=== PATIENT | female | born 1955 | race American Indian/Alaskan Native ===

== ENCOUNTER 2016-04-25 16:01 | Outpatient (CLI) | END 2016-04-25 16:02 | disposition home or self-care (01) ==

== ENCOUNTER 2017-04-25 20:04 | Emergency (ER) | payer OTHER ==
--- NOTE | 2017-04-25 20:49 | XRAY Report ---
EXAM: CHEST RADIOGRAPHY EXAM DATE: 04/25/2017 08:42 PM. CLINICAL HISTORY: Cough, chills. COMPARISON: 02/13/2015. TECHNIQUE: 2 views. FINDINGS: Lungs/Pleura: Mildly hyperexpanded. No localized infiltrate, consolidation, effusion, or pneumothorax . Mediastinum: Heart and mediastinal contours are unremarkable. Other: None. IMPRESSION: No acute disease. [facility] Referring Provider Line: [phone] SITE ID: [id number]
[2017-04-25] MEDS ORDERED: SODIUM CHLORIDE 0.9% 1,000 ML IV ONE (21:13)
[2017-04-25] MEDS ORDERED: BENZONATATE 100 MG CAPSULE PO STA (21:14)
[2017-04-25] MEDS ORDERED: ALBUTEROL NEB 2.5 MG/3 ML INH STA (21:14)
[2017-04-25 21:43] LABS: BASOPHILS # (AUTO) 0.1 10^3/uL (0.0-0.1); BASOPHILS % (AUTO) 1.2 %; EOSINOPHILS % (AUTO) 0.2 %; HGB - HEMOGLOBIN 14.7 g/dL (12.0-16.0); LYMPHOCYTES % (AUTO) 19.6 %; MEAN CORPUSCULAR HEMOGLOBIN 29.1 pg (27.0-31.0); MEAN CORPUSCULAR HGB CONC 33.4 g/dL (32.0-36.0); MEAN PLATELET VOLUME 8.5 fL (7.9-10.8); MONOCYTES # (AUTO) 0.5 10^3/uL (0.0-1.0); NEUTROPHILS # (AUTO) 3.5 10^3/uL (1.5-6.6); PLT - PLATELET COUNT 209 10^3/uL (130-450); RED BLOOD COUNT 5.05 10^6/uL (4.20-5.40); RED CELL DISTRIBUTION WIDTH 13.3 % (12.0-15.0)
[2017-04-25 21:51] LABS: ALBUMIN 4.5 g/dL (3.2-5.5); ALBUMIN/GLOBULIN RATIO 1.4 (1.0-2.2); BILIRUBIN,TOTAL 0.5 mg/dL (0.2-1.0); CALCIUM 9.1 mg/dL (8.5-10.3); CREATININE 0.7 mg/dL (0.4-1.0); TOTAL PROTEIN 7.8 g/dL (6.7-8.2)
[2017-04-25] MEDS ORDERED: predniSONE 20 MG TABLET PO STA (22:35)
--- NOTE | 2017-04-25 22:40 | ED Physician Documentation ---
PD HPI URI - Stated complaint Stated Complaint: SOA/COUGH - Chief complaint Chief Complaint: Resp - History obtained from History obtained from: Patient, Family - History of Present Illness Timing - onset: How many days ago (3) Timing details: Gradual onset, Still present Associated symptoms: Fever, Chills, Sweats, Nasal congestion, Rhinorrhea, Dry cough Similar symptoms before: No diagnosis, Has not had sx before Recently seen: Not recently seen - Additional information Additional information: Patient is a 61 year old female who is presenting to the emergency department for fevers, chills, cough and congestion. patient states that her symptoms have been going on for the last few days. patient states that she will continually cough but nothing will come up. Review of Systems Constitutional: reports: Fever, Chills, Myalgias Eyes: reports: Photophobia. denies: Decreased vision Ears: denies: Ear pain, Drainage/discharge Nose: reports: Rhinorrhea / runny nose, Congestion, Sinus pressure / pain Throat: denies: Dental pain / toothache, Sore throat Cardiac: denies: Chest pain / pressure Respiratory: reports: Cough. denies: Wheezing GI: reports: Nausea. 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 : None HEENT: None Musculoskeletal: None Derm: None - Past Surgical History Past Surgical History: Yes General: Cholecystectomy, Appendectomy /CAN FILLING 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 CLOSING MACHINE TENDER: Hysterectomy - Present Medications Home Medications: Ambulatory Orders Medication Instructions Recorded Confirmed Losartan [Cozaar] 50 mg ORAL DAILY 06/14/14 01/19/16 Omeprazole 20 mg ORAL DAILY 06/14/14 01/19/16 PARoxetine [Paxil] 10 mg ORAL DAILY 06/14/14 01/19/16 carBAMazepine [Tegretol Xr] 100 mg PO BID 12/11/14 01/19/16 Albuterol Sulfate [Proair Hfa 2 puffs IH QID #1 hfa.aer.ad 01/19/16 Inhaler] Azithromycin [Zithromax] 250 mg PO DAILY #6 tablet 01/19/16 Benzonatate [Tessalon] 100 mg PO TID PRN #20 capsule 01/19/16 Dexamethasone [Decadron] 4 mg PO DAILY #5 tablet 01/19/16 guaiFENesin/CODEINE [Robitussin AC] 10 ml PO Q6H PRN #240 ml 01/19/16 Benzonatate [Tessalon Perle] 100 mg PO TID #15 capsule 04/25/17 predniSONE [Prednisone] 40 mg PO DAILY 5 Days tablet 04/25/17 - Allergies Allergies/Adverse Reactions: Allergies Allergy/AdvReac Type Severity Reaction Status Date / Time No Known Drug Allergies Allergy Verified 04/25/17 20:29 - Social History Does the pt smoke?: Yes Smoking Status: Current every day smoker Does the pt drink ETOH?: No Does the pt have substance abuse?: No - Immunizations Immunizations are current?: Yes - POLST Patient has POLST: No PD ED PE NORMAL - Vitals Vital signs reviewed: Yes - General General: Alert and oriented X 3, Well developed/nourished - HEENT HEENT: Atraumatic, PERRL - Neck Neck: Supple, no meningeal sign - Cardiac Cardiac: RRR, No murmur - Abdomen Abdomen: Soft, Non tender, Non distended - Extremities Extremities: No deformity, Normal ROM s pain, No calf tenderness / cord - Neuro Neuro: Alert and oriented X 3, No motor deficit, Normal speech - Psych Psych: Normal mood PD ED PE EXPANDED - General General: Alert - HEENT HEENT: Nasal congestion, Rhinorrhea - Respiratory Respiratory: Wheezing, Right lower lobe, Left lower lobe, Other (cough appreciated). No: Labored, Stridor - Derm Derm: Diaphoretic Results - Vitals Vitals: Vital Signs - 24 hr 04/25/17 04/25/17 04/25/17 20:26 22:00 22:27 Temperature 36.5 C Heart Rate 100 81 98 Respiratory 22 16 20 Rate Blood Pressure 132/92 H 139/82 H O2 Saturation 97 100 Oxygen O2 Source Room air - Labs Labs: Laboratory Tests 04/25/17 04/25/17 04/25/17 20:32 21:25 21:25 WBC 5.0 RBC 5.05 Hgb 14.7 Hct 43.9 MCV 87.0 MCH 29.1 MCHC 33.4 RDW 13.3 Plt Count 209 MPV 8.5 Neut # 3.5 Lymph # 1.0 L Kidder # 0.5 Eos # 0.0 Baso # 0.1 Absolute Nucleated RBC 0.00 Nucleated RBC % 0.0 Sodium 135 Potassium 3.4 L Chloride 102 Carbon Dioxide 21 Anion Gap 12.0 BUN 9 Creatinine 0.7 Estimated GFR (MDRD) 85 L Glucose 91 Calcium 9.1 Total Bilirubin 0.5 AST 17 ALT 18 Alkaline Phosphatase 67 Total Protein 7.8 Albumin 4.5 Globulin 3.3 Albumin/Globulin Ratio 1.4 Lipase 13 L Influenza A (Rapid) Negative Influenza B (Rapid) Negative Influenza Types A,B Ag - - Rads (name of study) chest x-ray Radiology: Final report received (no acute abnormality) PD MEDICAL DECISION MAKING - ED course Complexity details: reviewed old records, reviewed results, re-evaluated patient , considered differential, d/w patient, d/w family ED course: patient was seen and examined at bedside. chest x-ray and flu swab were performed and were within normal limits. Patient was clammy, IV access was gained and labs were drawn. patient was treated with fluid bolus, albuterol and tessalon perle. patient's diagnostics were within normal limits. Patient required no further inpatient testing and was stable for discharge with oupatient follow up. Departure - Departure Disposition: 01 Home, Self Care Clinical Impression: Upper respiratory infection Condition: Good Instructions: ED Viral Syndrome, ED Bronchitis Asthmatic Follow-Up: Melinda Souza MD [Primary Care Provider] - Within 3 Days Prescriptions: Benzonatate [Tessalon Perle] 100 mg PO TID #15 capsule predniSONE [Prednisone] 40 mg PO DAILY 5 Days tablet Comments: Your diagnostics today were within normal limits. there was no sign of acute pneumonia. Your symptoms are likely viral in nature and should get better over the next couple of days. It is important to stay well hydrated and get plenty of rest. You should try to drink at least 100oz of fluids a day. You can take over the counter cold and flu medications. You should follow up with your doctor friday if your symptoms persist. You may return to the emergency department at any time for new, worsening or uncontrollable symptoms.
[2017-04-25 23:08] VITALS: BP 147/88
== END 2017-04-25 23:08 | disposition home or self-care (01) ==
LOC: ED 20:04
DX: J06.9 Acute upper respiratory infection, unspecified (principal); Z86.718 Personal history of other venous thrombosis and embolism; Z86.711 Personal history of pulmonary embolism; Z86.73 Personal history of transient ischemic attack (TIA), and cerebral infarction without residual deficits; K21.9 Gastro-esophageal reflux disease without esophagitis; F17.200 Nicotine dependence, unspecified, uncomplicated
CPT/HCPCS: 36415; 71046; 80053; 83690; 85025; 87275; 87276; 93005; 94640; 96360; 99283; A9270; J7512; J7613

== ENCOUNTER 2017-09-28 13:41 | Outpatient (CLI) | payer OTHER | END 2017-09-28 13:42 | disposition critical access hospital (66) | LOC: EMS 13:41 | PROVIDERS: ATTEND Surgery | DX: S09.93XA Unspecified injury of face, initial encounter (principal); M54.2 Cervicalgia; M25.552 Pain in left hip; M25.572 Pain in left ankle and joints of left foot; W18.39XA Other fall on same level, initial encounter; Y93.01 Activity, walking, marching and hiking; Y92.830 Public park as the place of occurrence of the external cause | CPT/HCPCS: A0425; A0429 ==

== ENCOUNTER 2017-09-28 14:18 | Emergency (ER) | payer OTHER ==
[2017-09-28] MEDS ORDERED: MORPHINE 10 MG/ML VIAL IM STA ×2 (14:30→16:18)
--- NOTE | 2017-09-28 14:33 | ED Physician Documentation ---
History of Present Illness - Stated complaint Stated Complaint: GLF - History obtained from History obtained from: Patient, EMS - History of Present Illness Timing: Today Pain level max: 9 Pain level now: 9 Improved by: rest Worsened by: movement - Additonal information Additional information: Patient is a 61-year-old female who presents to the emergency department [place] the park [place]. States her forehead struck the ground twice and is complaining of head pain, jaw pain, neck pain, bilateral hand pain left hip pain and left ankle pain. She states she takes cannabis oil at home for seizures daily. Does not take anything for pain. States she had surgery on her bilateral hands last year. Unsure if she lost consciousness or not. No vomiting. 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 HEENT: None Musculoskeletal: None Derm: None - Past Surgical History Past Surgical History: Yes General: Cholecystectomy, Appendectomy /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: Hysterectomy - Present Medications Home Medications: Ambulatory Orders Medication Instructions Recorded Confirmed Losartan [Cozaar] 50 mg ORAL DAILY 06/14/14 01/19/16 Omeprazole 20 mg ORAL DAILY 06/14/14 01/19/16 PARoxetine [Paxil] 10 mg ORAL DAILY 06/14/14 01/19/16 carBAMazepine [Tegretol Xr] 100 mg PO BID 12/11/14 01/19/16 Albuterol Sulfate [Proair Hfa 2 puffs IH QID #1 hfa.aer.ad 01/19/16 Inhaler] Azithromycin [Zithromax] 250 mg PO DAILY #6 tablet 01/19/16 Benzonatate [Tessalon] 100 mg PO TID PRN #20 capsule 01/19/16 Dexamethasone [Decadron] 4 mg PO DAILY #5 tablet 01/19/16 guaiFENesin/CODEINE [Robitussin AC] 10 ml PO Q6H PRN #240 ml 01/19/16 Benzonatate [Tessalon Perle] 100 mg PO TID #15 capsule 04/25/17 predniSONE [Prednisone] 40 mg PO DAILY 5 Days tablet 04/25/17 Oxycodone HCl/Acetaminophen 1 - 2 each PO Q6H PRN #14 tablet 09/28/17 [Percocet 5-325 mg Tablet] - Allergies Allergies/Adverse Reactions: Allergies Allergy/AdvReac Type Severity Reaction Status Date / Time No Known Drug Allergies Allergy Verified 04/25/17 20:29 - Social History Does the pt smoke?: Yes Smoking Status: Current every day smoker Does the pt drink ETOH?: No Does the pt have substance abuse?: No - Immunizations Immunizations are current?: Yes - POLST Patient has POLST: No PD ED PE NORMAL - Vitals Vital signs reviewed: Yes - General General: Alert and oriented X 3, Well developed/nourished - HEENT HEENT: PERRL, EOMI, Moist mucous membranes, Other (abrasion to the forehead. no hematoma. ) - Neck Neck: Supple, no meningeal sign, Other (mid c-spine TTP, maintained in c- collar. ) - Cardiac Cardiac: RRR - Respiratory Respiratory: No respiratory distress, Clear bilaterally - Abdomen Abdomen: Soft, Non tender, Non distended - Back Back: No spinal TTP - Derm Derm: Warm and dry - Extremities Extremities: Other (TTP over the L hip and L ankle diffusely. Limited ROM 2/2 pain. NVI. also diffuse tenderness over the B hands, but not the distal ulna, radius or snuffbox. NVI. 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, No motor deficit, No sensory deficit - Psych Psych: Normal mood, Normal affect Results - Vitals Vitals: Vital Signs - 24 hr 09/28/17 09/28/17 14:24 15:39 Temperature 37.0 C Heart Rate 77 66 Respiratory 18 14 Rate Blood Pressure 143/75 H 123/79 O2 Saturation 100 94 Oxygen O2 Source Room air - EKG (time done) 1634 Rate: Rate (enter#) (75) Rhythm: NSR Kerby: Normal Intervals: Normal OH QRS: Normal Ischemia: Normal ST segments - Rads (name of study) head CT Radiology: Prelim report reviewed, EMP read contemporaneously, See rad report ( no acute abnormality) facial bones ct Radiology: Prelim report reviewed, EMP read contemporaneously, See rad report ( no fractures) c-spine CT Radiology: Prelim report reviewed, EMP read contemporaneously, See rad report ( no acute abnormalities.) L hip xray Radiology: Prelim report reviewed, EMP read contemporaneously, See rad report ( no acute bony abnormalities) L ankle xray Radiology: Prelim report reviewed, EMP read contemporaneously, See rad report ( no acute abnormalities.) B hand xray Radiology: Prelim report reviewed, EMP read contemporaneously, See rad report ( Post bilateral trapeziectomy. Bilateral disarticulation of the thumbs at the carpometacarpal joints.) post reduction thumbs Radiology: Prelim report reviewed, EMP read contemporaneously, See rad report ( Post bilateral trapeziectomy. Improved alignment of the right first CMC joint, now within normal postsurgical limits. Persistent mild proximal migration of the left first metacarpal at the CMC joint.) PD MEDICAL DECISION MAKING - ED course Complexity details: reviewed results, re-evaluated patient, considered differential, d/w patient, d/w [facility] consultant ED course: Patient is a 61-year-old female who presents to the emergency department after a ground-level fall today. She sustained multiple injuries including a closed head injury and dislocation of the bilateral thumbs at the carpometacarpal joints. These are prior surgical repair joints. These were reduced in the emergency department under local anesthesia. Tolerated well. They did seem to slowly migrate back into their original position, therefore after the second x- ray they were replaced into a more normal anatomical position and thumb spica splints were applied. I discussed the case with Dr. Adams, orthopedics here as well as orthopedics at [place] in [place] who recommended that she follow- up closely with her hand surgeon for repeat evaluation. They state that if there is a mild dislocation still present as long as she is neurovascularly intact that should not be an issue as long as she has close follow-up. Patient states good understanding of this. She is comfortable with this plan and she is neurovascularly intact. Will prescribe pain medication for home. She also had some nausea and vomiting upon leaving the emergency department, therefore Zofran was given to her. She did not want to check back in for repeat evaluation at that point. She is still well-appearing, nontoxic. No neurological deficits. Abdomen was soft, nontender nondistended on serial exam. Patient counseled regarding signs and symptoms for which I believe and urgent re-evaluation would be necessary. Patient with good understanding of and agreement to plan and is comfortable going home at this time This document was made in part using voice recognition software. While efforts are made to proofread this document, sound alike and grammatical errors may occur. - Sepsis Event Vital Signs: Vital Signs - 24 hr 09/28/17 09/28/17 14:24 15:39 Temperature 37.0 C Heart Rate 77 66 Respiratory 18 14 Rate Blood Pressure 143/75 H 123/79 O2 Saturation 100 94 Oxygen O2 Source Room air Departure - Departure Disposition: 01 Home, Self Care Clinical Impression: Closed head injury Qualifiers: Encounter type: initial encounter Qualified Code(s): S09.90XA - Unspecified injury of head, initial encounter Thumb dislocation Qualifiers: Encounter type: initial encounter Laterality: unspecified laterality Qualified Code(s): S63.106A - Unspecified dislocation of unspecified thumb, initial encounter Contusion of jaw Qualifiers: Encounter type: initial encounter Qualified Code(s): S00.83XA - Contusion of other part of head, initial encounter Contusion, hip Qualifiers: Encounter type: initial encounter Laterality: unspecified laterality Qualified Code(s): S70.00XA - Contusion of unspecified hip, initial encounter Condition: Good Instructions: ED Head Injury Closed Follow-Up: your,doctor in 1 week [Other] Prescriptions: Oxycodone HCl/Acetaminophen [Percocet 5-325 mg Tablet] 1 - 2 each PO Q6H PRN # 14 tablet PRN Reason: pain Comments: You need to see a hand surgeon this week about your thumbs. You may have ripped the ligaments, causing them to redislocate. Keep the splints on. I spoke with orthopedics here and at [place] about you. They both agree you need to be seen at the hand clinic in [place] early this week. Discharge Date/Time: 09/28/17 18:04
[2017-09-28 15:40] VITALS: BP 123/79
--- NOTE | 2017-09-28 16:02 | CT Report ---
EXAM: CT HEAD EXAM DATE: 09/28/2017 03:37 PM. CLINICAL HISTORY: Fall, head pain. COMPARISON: 12/10/2014. TECHNIQUE: Multiaxial CT images were obtained from the foramen magnum to the vertex. Reformats: Coron al. IV contrast: None. In accordance with CT protocol optimization, one or more of the following dose reduction techniques w ere utilized for this exam: automated exposure control, adjustment of mA and/or KV based on patient s ize, or use of iterative reconstructive technique. FINDINGS: Parenchyma: No intraparenchymal hemorrhage. No evidence of mass, midline shift, or CT findings of inf arction. Perry-white differentiation is distinct. Extraaxial Spaces: No subdural or epidural collections identified. Ventricles: Normal in size and position. Sinuses and Orbits: Imaged paranasal sinuses, orbits, and mastoids show no significant abnormality. Bones: No evidence of fracture or calvarial defect. Other: None. IMPRESSION: Negative for an acute or focal intracranial abnormality. [facility] Referring Provider Line: [phone] SITE ID: [id number]
--- NOTE | 2017-09-28 16:08 | CT Preliminary Report ---
Exam: CT FACIAL BONES W/O IMPRESSION: 1. No facial fracture. Sinuses are clear. 2. Soft tissue swelling anterior to the mandible. [facility] SITE ID: [id number]
--- NOTE | 2017-09-28 16:08 | CT Report ---
EXAM: CT MAXILLOFACIAL WITHOUT CONTRAST EXAM DATE: 09/28/2017 03:37 PM. CLINICAL HISTORY: Fall, jaw pain. COMPARISONS: Sinus CT 02/02/2015. TECHNIQUE: Thin-section axial images were acquired of the face without contrast. Post-processing: Cor onal and sagittal reformats. Other: None. In accordance with CT protocol optimization, one or more of the following dose reduction techniques w ere utilized for this exam: automated exposure control, adjustment of mA and/or KV based on patient s ize, or use of iterative reconstructive technique. FINDINGS: Soft Tissue: There is soft tissue swelling of the left chin and lower left face. No radiopaque foreig n body. No discrete measurable hematoma. Orbits: Symmetric and unremarkable. Bones: No fracture or bone lesion. Temporomandibular Joints: The temporomandibular joints are symmetric and normally located. Sinuses: Normal. No mucosal thickening or fluid levels. Other: None. IMPRESSION: 1. No facial fracture. Sinuses are clear. 2. Soft tissue swelling anterior to the mandible. [facility] Referring Provider Line: [phone] SITE ID: [id number]
--- NOTE | 2017-09-28 16:11 | CT Report ---
EXAM: CT CERVICAL SPINE WITHOUT CONTRAST DATE: 09/28/2017 03:37 PM. HISTORY: Fall, neck pain. COMPARISONS: None. TECHNIQUE: Thin-section axial images were acquired of the cervical spine without contrast. Post-proce ssing: Coronal and sagittal reformats. Other: None. In accordance with CT protocol optimization, one or more of the following dose reduction techniques w ere utilized for this exam: automated exposure control, adjustment of mA and/or KV based on patient s ize, or use of iterative reconstructive technique. FINDINGS: Alignment: There is straightening of normal cervical lordosis without subluxation. Bones: No fracture or bony destruction. Interspace Levels/Facets: There is moderate disk height loss with disk osteophyte spurring at C5-C6. There is mild disk height loss at C6-C7 and C7-T1. Musculature: Normal. No fatty atrophy. Other: Trachea is midline. No apical pneumothorax. IMPRESSION: 1. Negative for acute fracture and subluxation of cervical spine. 2. Degenerative disk disease greatest at C5-C6. [facility] Referring Provider Line: [phone] SITE ID: [id number]
--- NOTE | 2017-09-28 16:11 | CT Preliminary Report ---
Exam: CT CERVICAL SPINE W/O IMPRESSION: 1. Negative for acute fracture and subluxation of cervical spine. 2. Degenerative disk disease greatest at C5-C6. [facility] SITE ID: [id number]
--- NOTE | 2017-09-28 16:12 | XRAY Preliminary Report ---
Exam: XR ANKLE 3 VIEW LT IMPRESSION: No fracture or subluxation of left ankle. [facility] SITE ID: [id number]
--- NOTE | 2017-09-28 16:12 | XRAY Report ---
EXAM: LEFT ANKLE RADIOGRAPHY EXAM DATE: 09/28/2017 04:00 PM. CLINICAL HISTORY: Fall, L ankle pain. COMPARISON: None. TECHNIQUE: 3 views. FINDINGS: Bones: Normal. No fractures or bone lesions. Joints: Normal. No effusion. No subluxations. The ankle mortise is normally aligned. Soft Tissues: There is spurring on the dorsal calcaneus. IMPRESSION: No fracture or subluxation of left ankle. [facility] Referring Provider Line: [phone] SITE ID: [id number]
--- NOTE | 2017-09-28 16:13 | XRAY Report ---
EXAM: LEFT HIP AND PELVIS RADIOGRAPHY EXAM DATE: 09/28/2017 04:02 PM. HISTORY: Fall, L hip pain. COMPARISONS: None. TECHNIQUE: 1 view of the pelvis and 1 view of the hip. FINDINGS: Bones: Normal. No fracture or bone lesion. Joints: The bilateral hip, pubis symphysis, and sacroiliac joints are preserved. Soft Tissues: Normal. No soft tissue swelling. IMPRESSION: No fracture or subluxation. [facility] Referring Provider Line: [phone] SITE ID: [id number]
--- NOTE | 2017-09-28 16:13 | XRAY Preliminary Report ---
Exam: XR HIP W/PELVIS 2-3V LT IMPRESSION: No fracture or subluxation. [facility] SITE ID: [id number]
[2017-09-28] MEDS ORDERED: KETOROLAC 60 MG/2 ML VIAL IM STA (16:18)
--- NOTE | 2017-09-28 16:28 | XRAY Report ---
EXAMS: 1. Right Hand Radiography 2. Left Hand Radiography EXAM DATE: 09/28/2017 04:01 PM. CLINICAL HISTORY: Fall, B hand pain. COMPARISON: None. TECHNIQUE: 2 views each hand. FINDINGS: Right: Bones: Trapezium is absent. There is irregularity of the proximal articular surface of the first meta carpal. No acute fracture. Joints: There is disarticulation at the base of the thumb. Soft Tissues: There is spurring of the fifth distal interphalangeal joint. Left: Bones: Trapezium is absent. Joints: There is disarticulation at the base of thumb. Soft Tissues: Normal. No soft tissue swelling. IMPRESSION: 1. Absent bilateral trapezium, presumably postoperative. Bilateral disarticulation at the base of the thumb. No acute fracture. [facility] Referring Provider Line: [phone] SITE ID: [id number]
--- NOTE | 2017-09-28 16:28 | XRAY Preliminary Report ---
Exam: XR HAND 2 VIEW BILAT IMPRESSION: 1. Absent bilateral trapezium, presumably postoperative. Bilateral disarticulation at the base of the thumb. No acute fracture. [facility] SITE ID: [id number]
[2017-09-28] MEDS ORDERED: LIDOCAINE 2% 10 ML MDV SUBQ STA (16:41)
--- NOTE | 2017-09-28 18:32 | XRAY Report ---
EXAM: BILATERAL FIRST DIGIT RADIOGRAPHY EXAM DATE: 09/28/2017 05:43 PM. CLINICAL HISTORY: Bilateral thumb dislocation, postreduction. COMPARISON: Bilateral hand radiographs, earlier same day. TECHNIQUE: 2 views each. FINDINGS: RIGHT THUMB: Bones: Post trapeziectomy. No fracture or bone lesion. Joints: Improved alignment at the first CMC joint. Articulation of the first metacarpal base with the second metacarpal base and trapezoid appears within normal limits. Mild joint space loss and osteoph ytosis at the first interphalangeal joint, compatible with osteoarthritis. Soft Tissues: Unremarkable. LEFT THUMB: Bones: Post trapeziectomy. No fracture or bone lesion. Joints: Persistent mild proximal migration of the first metacarpal at the CMC joint. Soft Tissues: Unremarkable. IMPRESSION: 1. Post bilateral trapeziectomy. 2. Improved alignment at the right first CMC joint, now within normal postsurgical limits. 3. Persistent mild proximal migration of the left first metacarpal at the CMC joint. [facility] Referring Provider Line: [phone] SITE ID: [id number]
[2017-09-28] MEDS ORDERED: ONDANSETRON ODT 4 MG TABLET TL STA (19:06)
[2017-09-28] MEDS ORDERED: ONDANSETRON ODT 4 MG Prepack 2 TL STA (19:14)
[2017-09-28] MEDS ORDERED: ONDANSETRON 4 MG/2 ML VIAL ONE ×2 (19:17→19:20)
[2017-09-28] MEDS ORDERED: CHERRY SYRUP 10 ML UDC PO ONE (19:18)
== END 2017-09-28 18:04 | disposition home or self-care (01) ==
LOC: EDUNIT# → ED 14:18
DX: S63.045A Dislocation of carpometacarpal joint of left thumb, initial encounter (principal); S63.044A Dislocation of carpometacarpal joint of right thumb, initial encounter; S09.90XA Unspecified injury of head, initial encounter; S00.81XA Abrasion of other part of head, initial encounter; S00.83XA Contusion of other part of head, initial encounter; S70.00XA Contusion of unspecified hip, initial encounter; W18.30XA Fall on same level, unspecified, initial encounter; Y92.830 Public park as the place of occurrence of the external cause; Z86.718 Personal history of other venous thrombosis and embolism; Z86.711 Personal history of pulmonary embolism; F17.200 Nicotine dependence, unspecified, uncomplicated
CPT/HCPCS: 26641; 70450; 70486; 72125; 73120; 73140; 73502; 73610; 93005; 96372; 99283; A9270; Q0162

== ENCOUNTER 2017-11-14 14:33 | Outpatient (CLI) | payer OTHER ==
--- NOTE | 2017-11-15 16:55 | MRI Report ---
Procedure Date: 11/14/2017 Accession Number: [id number] / [id number] Procedure: MRI - Cervical Spine W/O CPT Code: FULL RESULT: EXAM: MRI CERVICAL SPINE WITHOUT CONTRAST EXAM DATE: 11/14/2017 04:10 PM. CLINICAL HISTORY: Neck pain, radiculitis. COMPARISONS: None. TECHNIQUE: Multiplanar, multisequence T1-weighted and fluid-sensitive sequences of the cervical spine without contrast. Other: None. FINDINGS: Alignment: There is reversal of the normal cervical lordosis. Neurologic Structures: The visualized posterior fossa structures are unremarkable. No signal abnormality in the visualized spinal cord. Bone Marrow: Type I endplate change is at C7/T1. Interspace Levels/Facets: All visualized intervertebral disk are desiccated. C1-C2: Unremarkable. C2-C3: Severe left facet osteoarthritis and mild right facet osteoarthritis result in moderate left foraminal narrowing. C3-C4: Moderate right facet osteoarthritis and mild left facet osteoarthritis result in moderate bilateral foraminal narrowing. C4-C5: A posterior disk/osteophyte complex and moderate right facet osteoarthritis results in mild spinal canal and severe right foraminal narrowing. C5-C6: The disk is desiccated with moderate height loss with anterior endplate spurring. A posterior disk/osteophyte complex causes moderate spinal canal, mild right foraminal, and severe left foraminal narrowing. There is flattening of the anterior cord. The cord is compressed into a triangular configuration. C6-C7: A posterior disk/osteophyte complex causes minimal spinal canal and moderate bilateral foraminal narrowing. C7-T1: Moderate disk height loss is present. A posterior disk/osteophyte complex and ligamentum flavum hypertrophy result in moderate spinal canal and severe bilateral foraminal narrowing. Musculature: Normal. No edema or fatty atrophy. Other: The paravertebral and prevertebral soft tissues are normal. IMPRESSION: 1. Reversal of the normal cervical lordosis. 2. Moderate left foraminal narrowing at C2-C3 due to osteoarthritis. 3. Moderate bilateral foraminal narrowing at C3-C4 due to facet osteoarthritis. 4. Mild spinal canal and severe right foraminal narrowing at C4-C5 due to disk and posterior element degenerative changes. 5. Moderate spinal canal, mild right foraminal, and mild left foraminal narrowing at C5-C6 due to a disk/osteophyte complex. 6. Moderate bilateral foraminal narrowing at C6-C7 due to a disk/osteophyte complex. 7. Moderate spinal canal and severe bilateral foraminal narrowing at C7/T1 due to disk and posterior element degenerative changes. RADIA
== END 2017-11-14 14:34 | disposition home or self-care (01) ==
LOC: DI 14:33
PROVIDERS: ATTEND Student in an Organized Health Care Education/Training Program
DX: M50.31 Other cervical disc degeneration, high cervical region (principal); M47.892 Other spondylosis, cervical region; M48.02 Spinal stenosis, cervical region
CPT/HCPCS: 72141

== ENCOUNTER 2017-12-28 11:19 | Emergency (ER) | payer OTHER ==
[2017-12-28 11:51] LABS: BILIRUBIN,URINE NEGATIVE (NEGATIVE); GLUCOSE, URINE (UA) NEGATIVE (NEGATIVE); KETONES,URINE (UA) NEGATIVE (NEGATIVE); LEUKOCYTE ESTERASE, URINE MODERATE (NEGATIVE); NITRITE,URINE NEGATIVE (NEGATIVE); OCCULT BLOOD,URINE SMALL (NEGATIVE); PH,URINE 6.5 PH (5.0-7.5); PROTEIN,URINE NEGATIVE (NEGATIVE); UROBILINOGEN,URINE 0.2 (NORMAL) E.U./dL (NORMAL)
[2017-12-28 11:53] LABS: CLARITY,URINE HAZY (CLEAR)
[2017-12-28 12:14] LABS: RBC,URINE 0-5 /HPF (0-5)
[2017-12-28 12:15] LABS: BACTERIA,URINE Rare /HPF (None Seen); SQUAMOUS EPITHELIAL CELL,UR FEW Squamous (<= Few); WBC CLUMPS,URINE PRESENT
--- NOTE | 2017-12-28 12:29 | ED Physician Documentation ---
PD HPI FEMALE - Stated complaint Stated Complaint: SIDE PX/VOMITING - Chief complaint Chief Complaint: UTI - History obtained from History obtained from: Patient - History of Present Illness Timing - onset: How many days ago (2) Timing - duration: Days (2) Timing - details: Abrupt onset, Still present Associated symptoms: Back pain (todauy), Dysuria, Urinary frequency. No: Fever , Vaginal discharge, Genital sore/lesion Similar symptoms before: Diagnosis (utis and had leftover dose Bactrim that she took yesterday, without improved symptoms today.) Recently seen: Not recently seen Review of Systems Constitutional: denies: Fever, Chills Nose: denies: Rhinorrhea / runny nose, Congestion Throat: denies: Sore throat Respiratory: denies: Cough GI: reports: Abdominal Pain (suprapubic area). denies: Nausea, Vomiting, Diarrhea : reports: Dysuria, Frequency. denies: Discharge Skin: denies: Rash PD PAST MEDICAL HISTORY - Past Medical History Past Medical History: Yes Cardiovascular: Deep vein thrombosis, Pulmonary embolism Respiratory: Other Endocrine/Autoimmune: None GI: GERD PREFITTER: None : None HEENT: None Musculoskeletal: None Derm: None - Past Surgical History Past Surgical History: Yes General: Cholecystectomy, Appendectomy /PREFITTER: Hysterectomy - Present Medications Home Medications: Ambulatory Orders Medication Instructions Recorded Confirmed Losartan [Cozaar] 50 mg ORAL DAILY 06/14/14 01/19/16 Omeprazole 20 mg ORAL DAILY 06/14/14 01/19/16 PARoxetine [Paxil] 10 mg ORAL DAILY 06/14/14 01/19/16 carBAMazepine [Tegretol Xr] 100 mg PO BID 12/11/14 01/19/16 Albuterol Sulfate [Proair Hfa 2 puffs IH QID #1 hfa.aer.ad 01/19/16 Inhaler] Azithromycin [Zithromax] 250 mg PO DAILY #6 tablet 01/19/16 Benzonatate [Tessalon] 100 mg PO TID PRN #20 capsule 01/19/16 Dexamethasone [Decadron] 4 mg PO DAILY #5 tablet 01/19/16 guaiFENesin/CODEINE [Robitussin AC] 10 ml PO Q6H PRN #240 ml 01/19/16 Benzonatate [Tessalon [place]] 100 mg PO TID #15 capsule 04/25/17 predniSONE [Prednisone] 40 mg PO DAILY 5 Days tablet 04/25/17 Oxycodone HCl/Acetaminophen 1 - 2 each PO Q6H PRN #14 tablet 09/28/17 [Percocet 5-325 mg Tablet] Cephalexin [Keflex] 500 mg PO QID #24 capsule 12/28/17 - Allergies Allergies/Adverse Reactions: Allergies Allergy/AdvReac Type Severity Reaction Status Date / Time No Known Drug Allergies Allergy Verified 04/25/17 20:29 - Social History Does the pt smoke?: Yes Smoking Status: Current every day smoker Does the pt drink ETOH?: Yes Does the pt have substance abuse?: No - Immunizations Immunizations are current?: Yes - POLST Patient has POLST: No PD ED PE NORMAL - Vitals Vital signs reviewed: Yes - General General: Alert and oriented X 3, No acute distress, Well developed/nourished - Neck Neck: Supple, no meningeal sign, No adenopathy - Cardiac Cardiac: RRR, No murmur - Respiratory Respiratory: Clear bilaterally - Abdomen Abdomen: Soft, Non tender - Back Back: No CVA TTP Results - Vitals Vitals: Vital Signs - 24 hr 12/28/17 12/28/17 11:33 13:01 Temperature 36.3 C L 36.1 C L Heart Rate 76 67 Respiratory 18 18 Rate Blood Pressure 135/93 H 122/83 H O2 Saturation 98 98 Oxygen O2 Source Room air - Labs Labs: Laboratory Tests 12/28/17 11:47 Urine Color YELLOW Urine Clarity HAZY Urine pH 6.5 Ur Specific [place] 1.010 Urine Protein NEGATIVE Urine Glucose (UA) NEGATIVE Urine Ketones NEGATIVE Urine Occult Blood SMALL H Urine Nitrite NEGATIVE Urine Bilirubin NEGATIVE Urine Urobilinogen 0.2 (NORMAL) Ur Leukocyte Esterase MODERATE H Urine RBC 0-5 Urine WBC 6-10 H Urine WBC Clumps PRESENT Ur Squamous Epith Cells FEW Squamous Urine Bacteria Rare Ur Microscopic Review INDICATED Urine Culture Comments INDICATED PD MEDICAL DECISION MAKING - ED course Complexity details: considered differential (has dysuria initially then some flank pain both sides. Does not sound like stone. UA positive enough especially in lieu of her having taken an abx dose last night. ), d/w patient - Sepsis Event Vital Signs: Vital Signs - 24 hr 12/28/17 12/28/17 11:33 13:01 Temperature 36.3 C L 36.1 C L Heart Rate 76 67 Respiratory 18 18 Rate Blood Pressure 135/93 H 122/83 H O2 Saturation 98 98 Oxygen O2 Source Room air Departure - Departure Disposition: Home, Self Care Clinical Impression: Dysuria UTI (urinary tract infection) Qualifiers: Urinary tract infection type: acute cystitis Hematuria presence: without hematuria Qualified Code(s): N30.00 - Acute cystitis without hematuria Condition: Stable Record reviewed to determine appropriate education?: Yes Instructions: ED UTI Cystitis Female Follow-Up: Melinda Souza MD [Primary Care Provider] - Prescriptions: Cephalexin [Keflex] 500 mg PO QID #24 capsule Comments: Continue the Azo as needed for discomfort. Add Tylenol if needed for pains. Drink lots of fluids as you have been doing. Add cephalexin antibiotic 4 times a day for the next 5 days. Follow-up on Friday as planned. Discharge Date/Time: 12/28/17 13:05
[2017-12-28] MEDS ORDERED: cephALEXin 250 MG CAPSULE PO STA (12:43)
[2017-12-28] MEDS ORDERED: PHENAZOPYRIDINE 100 MG TABLET PO STA (12:44)
[2017-12-28] MEDS ORDERED: ACETAMINOPHEN 325 MG TABLET PO STA (12:44)
[2017-12-28 13:02] VITALS: BP 122/83
== END 2017-12-28 13:05 | disposition home or self-care (01) ==
LOC: ED 11:19
DX: N30.00 Acute cystitis without hematuria (principal); Z86.718 Personal history of other venous thrombosis and embolism; F17.200 Nicotine dependence, unspecified, uncomplicated
CPT/HCPCS: 81001; 87086; 87181; 99283; A9270; 81003

== ENCOUNTER 2018-02-13 07:52 | Outpatient (CLI) | payer OTHER | END 2018-02-13 07:53 | disposition short-term general hospital (02) | LOC: EMS 07:52 | PROVIDERS: ATTEND Surgery | DX: M54.5 Low back pain (principal); R06.02 Shortness of breath | CPT/HCPCS: A0425; A0427 ==

== ENCOUNTER 2018-02-18 15:33 | Emergency (ER) | payer OTHER ==
--- NOTE | 2018-02-18 16:12 | XRAY Report ---
Reason: Chest Pain Procedure Date: 02/18/2018 Accession Number: [id number] / [id number] Procedure: XR - Chest 1 View X-Ray CPT Code: 85536 FULL RESULT: EXAM: CHEST RADIOGRAPHY. EXAM DATE: 02/18/2018 04:02 PM. CLINICAL HISTORY: Chest pain for 5 days. COMPARISON: chest 2 view 04/25/2017 8:31 PM. TECHNIQUE: 1 view. FINDINGS: Lungs/Pleura: Minimal plate-like atelectasis left base. No other focal opacities evident. No pleural effusion. No pneumothorax. Mediastinum: Within exam limitations, the cardiomediastinal contour is normal. Other: Cholecystectomy. IMPRESSION: Normal single view chest. RADIA
[2018-02-18] MEDS ORDERED: KETOROLAC 60 MG/2 ML VIAL IVP STA (16:25)
[2018-02-18 16:56] LABS: BASOPHILS % (AUTO) 0.6 %; EOSINOPHILS # (AUTO) 0.1 10^3/uL (0.0-0.7); EOSINOPHILS % (AUTO) 0.9 %; HGB - HEMOGLOBIN 14.8 g/dL (12.0-16.0); LYMPHOCYTES # (AUTO) 1.6 10^3/uL (1.5-3.5); LYMPHOCYTES % (AUTO) 20.7 %; MEAN CORPUSCULAR HEMOGLOBIN 29.6 pg (27.0-31.0); MEAN CORPUSCULAR HGB CONC 33.9 g/dL (32.0-36.0); MEAN CORPUSCULAR VOLUME 87.2 fL (81.0-99.0); MEAN PLATELET VOLUME 8.4 fL (7.9-10.8); MONOCYTES # (AUTO) 0.5 10^3/uL (0.0-1.0); MONOCYTES % (AUTO) 7.1 %; NEUTROPHILS # (AUTO) 5.5 10^3/uL (1.5-6.6); NEUTROPHILS % (AUTO) 70.7 %; PLT - PLATELET COUNT 319 10^3/uL (130-450); RED BLOOD COUNT 5.01 10^6/uL (4.20-5.40); RED CELL DISTRIBUTION WIDTH 12.8 % (12.0-15.0); WHITE BLOOD COUNT 7.8 x10^3/uL (4.8-10.8)
[2018-02-18 17:04] LABS: ALBUMIN 4.4 g/dL (3.2-5.5); ALBUMIN/GLOBULIN RATIO 1.4 (1.0-2.2); BILIRUBIN,TOTAL 0.6 mg/dL (0.2-1.0); CALCIUM 9.3 mg/dL (8.5-10.3); CREATININE 0.6 mg/dL (0.4-1.0); TOTAL PROTEIN 7.6 g/dL (6.7-8.2)
[2018-02-18] MEDS ORDERED: IOPAMIDOL-300 100 ML VIAL ONE (17:10)
--- NOTE | 2018-02-18 18:07 | ED Physician Documentation ---
History of Present Illness - Stated complaint Stated Complaint: CP/NAUSEA - Chief complaint Chief Complaint: Cardiac - History obtained from History obtained from: Patient - History of Present Illness Timing: How many days ago (4) Pain level max: 9 Pain level now: 9 Improved by: nothing Worsened by: breathing - Additonal information Additional information: Patient is a 62-year-old female with a history of multiple pulmonary embolisms who presents with sharp right-sided chest pain for the past 4 days. She states that she was seen at [facility] in [place] and had normal blood work and they sent her home. Has had constant pain since that time. Tried to see her doctor today but was unavailable so came here for evaluation. She is not currently on anticoagulation. She recently returned from a three-week long train trip in which she traveled approximately 5000 miles. Review of Systems Constitutional: denies: Fever, Chills Cardiac: denies: Palpitations Respiratory: denies: Cough GI: denies: Vomiting, Diarrhea : denies: Dysuria, Frequency, Hesitancy Skin: denies: Rash Musculoskeletal: denies: Neck pain, Back pain Neurologic: denies: Headache PD PAST MEDICAL HISTORY - Past Medical History Cardiovascular: Deep vein thrombosis, Pulmonary embolism Respiratory: Other Endocrine/Autoimmune: None GI: GERD PARTS FINISHER: None : None HEENT: None Musculoskeletal: None Derm: None - Past Surgical History Past Surgical History: Yes General: Cholecystectomy, Appendectomy /PARTS FINISHER: Hysterectomy - Present Medications Home Medications: Ambulatory Orders Medication Instructions Recorded Confirmed Oxycodone HCl/Acetaminophen 1 - 2 each PO Q6H PRN #14 tablet 02/18/18 [Percocet 5-325 mg Tablet] Rivaroxaban [Xarelto] 15 mg PO BID #42 tablet 02/18/18 - Allergies Allergies/Adverse Reactions: Allergies Allergy/AdvReac Type Severity Reaction Status Date / Time No Known Drug Allergies Allergy Verified 02/18/18 15:46 - Social History Does the pt smoke?: Yes Smoking Status: Current every day smoker Does the pt drink ETOH?: Yes Does the pt have substance abuse?: No - Immunizations Immunizations are current?: Yes - POLST Patient has POLST: No PD ED PE NORMAL - Vitals Vital signs reviewed: Yes - General General: Alert and oriented X 3, No acute distress - HEENT HEENT: Moist mucous membranes - Neck Neck: Supple, no meningeal sign - Cardiac Cardiac: RRR, Strong equal pulses - Respiratory Respiratory: No respiratory distress, Clear bilaterally - Abdomen Abdomen: Soft, Non tender, Non distended - Derm Derm: Warm and dry - Extremities Extremities: No edema, No calf tenderness / cord - Neuro Neuro: Alert and oriented X 3 - Psych Psych: Normal mood, Normal affect Results - Vitals Vitals: Vital Signs - 24 hr 02/18/18 02/18/18 02/18/18 15:42 17:47 19:29 Temperature 36.8 C Heart Rate 89 71 69 Respiratory 25 H 15 16 Rate Blood Pressure 149/92 H 128/86 H 119/88 H O2 Saturation 97 97 98 Oxygen O2 Source Room air - Labs Labs: Laboratory Tests 02/18/18 02/18/18 02/18/18 16:35 16:35 16:35 WBC 7.8 RBC 5.01 Hgb 14.8 Hct 43.6 MCV 87.2 MCH 29.6 MCHC 33.9 RDW 12.8 Plt Count 319 MPV 8.4 Neut # (Auto) 5.5 Lymph # (Auto) 1.6 [place] # (Auto) 0.5 Eos # (Auto) 0.1 Baso # (Auto) 0.0 Absolute Nucleated RBC 0.00 Nucleated RBC % 0.0 Sodium 138 Potassium 3.6 Chloride 105 Carbon Dioxide 22 Anion Gap 11.0 BUN 11 Creatinine 0.6 Estimated GFR (MDRD) 101 Glucose 96 Calcium 9.3 Total Bilirubin 0.6 AST 14 ALT 32 Alkaline Phosphatase 84 Troponin I < 0.04 Total Protein 7.6 Albumin 4.4 Globulin 3.2 Albumin/Globulin Ratio 1.4 Lipase 21 L - Rads (name of study) CT angio chest Radiology: Prelim report reviewed, EMP read contemporaneously, See rad report (Subsegmental pulmonary embolus, right middle lobe, with associated lateral infiltrate likely representing pulmonary infarct. No aortic aneurysm or dissection.) PD MEDICAL DECISION MAKING - ED course Complexity details: reviewed old records, reviewed results, re-evaluated patient, considered differential, d/w patient ED course: Patient is a 62-year-old female who presents to the emergency department with pleuritic right-sided chest pain. CT pulmonary angiogram reveals a pulmonary embolus. Discussed different anticoagulation options and she elects Xarelto. Started in the emergency department will follow up with her doctor. Also reviewed ER notes from [facility] in [place]. Patient counseled regarding signs and symptoms for which I believe and urgent re-evaluation would be necessary. Patient with good understanding of and agreement to plan and is comfortable going home at this time This document was made in part using voice recognition software. While efforts are made to proofread this document, sound alike and grammatical errors may occur. Departure - Departure Disposition: 01 Home, Self Care Clinical Impression: Pulmonary embolism Qualifiers: Pulmonary embolism type: other Chronicity: acute Acute cor pulmonale presence: without acute cor pulmonale Qualified Code(s): I26.99 - Other pulmonary embolism without acute cor pulmonale Condition: Good Instructions: Embolism Pulmonary Dc Follow-Up: Melinda Souza MD [Primary Care Provider] - Within 1 week Prescriptions: Oxycodone HCl/Acetaminophen [Percocet 5-325 mg Tablet] 1 - 2 each PO Q6H PRN #14 tablet PRN Reason: pain Rivaroxaban [Xarelto] 15 mg PO BID #42 tablet Comments: Take the Xarelto as prescribed. Return if you worsen. You need to follow-up closely with your doctor for further care. Return for worsening shortness of breath or worsening pain. Do not drink alcohol or drive while on narcotic pain medicine. Note that many narcotic pain relievers also contain tylenol/acetaminophen. Please ensure that your total dose of acetaminophen from all sources does not exceed 3 grams (3000mg) per day. You may constipated on this medication, take a stool softener such as "Colace" twice a day while you are on it. Also recommend a [id number] laxative such as senna or MiraLAX any day that you do not have a bowel movement. If you received narcotic pain medication in the emergency department, do not drive or operate machinery for the next 24 hours. Discharge Date/Time: 02/18/18 19:30
[2018-02-18] MEDS ORDERED: IOPAMIDOL-300 100 ML VIAL IVP ONE (18:40)
[2018-02-18] MEDS ORDERED: RIVAROXABAN 10 MG TABLET PO STA (19:02)
--- NOTE | 2018-02-18 19:03 | CT Report ---
Reason: pleuritic R chest pain Procedure Date: 02/18/2018 Accession Number: [id number] / [id number] Procedure: CT - Chest Angio (PE) CPT Code: FULL RESULT: EXAM: CT ANGIOGRAM CHEST EXAM DATE: 02/18/2018 06:37 PM. CLINICAL HISTORY: Pleuritic right chest pain. COMPARISON: CHEST W/ 02/23/2015 6:02 PM. TECHNIQUE: Routine helical imaging was performed through the chest in the pulmonary arterial phase. IV Contrast: 80 cc of Isovue-300. Reconstructions: Coronal 3-D MIP reconstructions.Sagittal and coronal. In accordance with CT protocol optimization, one or more of the following dose reduction techniques were utilized for this exam: automated exposure control, adjustment of mA and/or KV based on patient size, or use of iterative reconstructive technique. FINDINGS: Pulmonary Arteries: Diagnostic quality: Adequate through the segmental arteries. Subsegmental pulmonary embolus, right middle lobe, otherwise no evidence for acute or chronic pulmonary emboli. RV/LV is within normal limits. There is no interventricular septal bowing. There is no reflux of contrast material in the IVC. Lungs/Pleura: Mild bilateral dependent atelectasis. Small focal infiltrate, lateral right middle lobe, with adjacent pleural thickening. Calcified granuloma, right middle lobe. No consolidation, new nodules, or edema. No effusions or pneumothorax. Mediastinum: Mild aortic calcification. No cardiac enlargement or adenopathy. Thoracic Aorta: Unremarkable. Upper Abdomen: Cholecystectomy noted. Other: Pectus deformity noted. IMPRESSION: 1. Subsegmental pulmonary embolus, right middle lobe, with associated lateral infiltrate likely representing pulmonary infarct. 2. No aortic aneurysm or dissection. RADIA The critical result notification system was initiated by Dr. Denilson James at 18:59 hrs on 02/18/18. The above findings were discussed with Pascual Pope by Dr. Denilson James at 19:02 hrs on 02/18/18.
[2018-02-18] MEDS ORDERED: RIVAROXABAN 15 MG TABLET PO STA (19:14)
[2018-02-18 19:30] VITALS: BP 119/88
== END 2018-02-18 19:30 | disposition home or self-care (01) ==
LOC: ED 15:33
DX: I26.99 Other pulmonary embolism without acute cor pulmonale (principal); R07.81 Pleurodynia; Z86.711 Personal history of pulmonary embolism; Z86.718 Personal history of other venous thrombosis and embolism; F17.200 Nicotine dependence, unspecified, uncomplicated
CPT/HCPCS: 36415; 71045; 71275; 80053; 83690; 84484; 85025; 93005; 96374; 99283; A9270; Q9967

== ENCOUNTER 2018-08-17 08:00 | Outpatient (CLI) | payer OTHER ==
[2018-08-17 12:46] LABS: BASOPHILS % (AUTO) 0.6 %; EOSINOPHILS # (AUTO) 0.4 10^3/uL (0.0-0.7); HGB - HEMOGLOBIN 14.5 g/dL (12.0-16.0); LYMPHOCYTES # (AUTO) 1.5 10^3/uL (1.5-3.5); LYMPHOCYTES % (AUTO) 20.7 %; MEAN CORPUSCULAR HEMOGLOBIN 29.8 pg (27.0-31.0); MEAN CORPUSCULAR HGB CONC 33.4 g/dL (32.0-36.0); MEAN CORPUSCULAR VOLUME 89.4 fL (81.0-99.0); MEAN PLATELET VOLUME 8.9 fL (7.9-10.8); MONOCYTES # (AUTO) 0.4 10^3/uL (0.0-1.0); MONOCYTES % (AUTO) 5.5 %; NEUTROPHILS # (AUTO) 4.9 10^3/uL (1.5-6.6); NEUTROPHILS % (AUTO) 68.2 %; PLT - PLATELET COUNT 272 10^3/uL (130-450); RED BLOOD COUNT 4.88 10^6/uL (4.20-5.40); RED CELL DISTRIBUTION WIDTH 13.3 % (12.0-15.0); WHITE BLOOD COUNT 7.1 x10^3/uL (4.8-10.8)
[2018-08-17 12:56] LABS: HB2 TOTAL 16.3 g/dL; HEMOGLOBIN A1C 0.54 g/dL; HEMOGLOBIN A1C % 5.2 % (4.6-6.2)
[2018-08-17 13:05] LABS: ALBUMIN 4.2 g/dL (3.2-5.5); ALBUMIN/GLOBULIN RATIO 1.4 (1.0-2.2); ALKALINE PHOSPHATASE 67 IU/L (42-121); ALT ALANINE AMINOTRANSFERASE 19 IU/L (10-60); AST ASPARTATE AMINOTRANSFERASE 18 IU/L (10-42); BILIRUBIN,TOTAL 0.6 mg/dL (0.2-1.0); BUN - BLOOD UREA NITROGEN 12 mg/dL (6-20); CALCIUM 9.3 mg/dL (8.5-10.3); CARBON DIOXIDE - CO2 26 mmol/L (21-32); CHLORIDE 107 mmol/L (101-111); CHOL/HDL RATIO 4.8 (<4.4); CHOLESTEROL 262 mg/dL; CREATININE 0.7 mg/dL (0.4-1.0); GFR - MDRD 85 (>89); GLUCOSE 104 mg/dL (70-100); HDL CHOLESTEROL 55 mg/dL; LDL CHOLESTEROL,CALCULATED 178 mg/dL; LDL/HDL RATIO 3.2 (<4.4); SODIUM 140 mmol/L (135-145); TOTAL PROTEIN 7.1 g/dL (6.7-8.2); VLDL CHOLESTEROL 29 mg/dL
[2018-08-17 13:41] LABS: FREE T4 (FREE THYROXINE) 0.74 ng/dL (0.58-1.64)
== END 2018-08-17 23:59 | disposition home or self-care (01) ==
LOC: LAB.WCP 08:00
PROVIDERS: ATTEND Family Medicine
DX: Z00.00 Encounter for general adult medical examination without abnormal findings (principal); E78.5 Hyperlipidemia, unspecified; F32.9 Major depressive disorder, single episode, unspecified
CPT/HCPCS: 36415; 80053; 80061; 83036; 83721; 84439; 84443; 85025

== ENCOUNTER 2018-09-03 08:21 | Outpatient (CLI) | payer OTHER | END 2018-09-03 08:22 | disposition home or self-care (01) | LOC: LAB.WCP 08:21 | PROVIDERS: ATTEND Family Medicine | DX: R79.89 Other specified abnormal findings of blood chemistry (principal) | CPT/HCPCS: 36415; 84443 ==

== ENCOUNTER 2019-01-15 03:05 | Outpatient (CLI) | payer OTHER | END 2019-01-15 03:06 | disposition critical access hospital (66) | LOC: EMS 03:05 | PROVIDERS: ATTEND Surgery | DX: R30.0 Dysuria (principal); R31.9 Hematuria, unspecified | CPT/HCPCS: A0425; A0429 ==

== ENCOUNTER 2019-01-15 03:39 | Emergency (ER) | payer OTHER ==
--- NOTE | 2019-01-15 03:41 | ED Physician Documentation ---
History of Present Illness - Stated complaint Stated Complaint: UTI, HEMATURIA, BLOOD THINNERS - Additonal information Additional information: This is a 63-year-old female with a history of pulmonary embolisms on xarelto who presents with dysuria and hematuria. Patient states that she has been feeling a little under the weather for several days, and then tonight she began developing dysuria on urination. She started treating this with fluids and cranberry juice, however she developed some blood in her urine, and given that she is on blood thinner she decided to present to the emergency department for further evaluation. She denies lightheadedness, vomiting. She does have some mild suprapubic discomfort. No fever. 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 ATTENDANT: Hysterectomy - Present Medications Home Medications: Ambulatory Orders Medication Instructions Recorded Confirmed Cefdinir 300 mg PO BID #14 capsule 01/15/19 Fluconazole 150 mg PO ONCE #1 tablet 01/15/19 Rivaroxaban [Xarelto] 20 mg PO DAILY 01/15/19 01/15/19 diazePAM [Diazepam] 5 mg PO DAILY 01/15/19 01/15/19 - Allergies Allergies/Adverse Reactions: Allergies Allergy/AdvReac Type Severity Reaction Status Date / Time No Known Drug Allergies Allergy Verified 01/15/19 03:46 - Social History Does the pt smoke?: Yes Smoking Status: Current every day smoker Does the pt drink ETOH?: Yes Does the pt have substance abuse?: No - Immunizations Immunizations are current?: Yes - POLST Patient has POLST: No PD ED PE NORMAL - Vitals Vital signs reviewed: Yes - General General: Alert and oriented X 3, No acute distress - HEENT HEENT: PERRL - Neck Neck: Supple, no meningeal sign - Cardiac Cardiac: RRR - Respiratory Respiratory: Clear bilaterally - Abdomen Abdomen: Soft, Other (Slight suprapubic tenderness, otherwise nontender to palpation.) - Derm Derm: Warm and dry - Extremities Extremities: No deformity - Neuro Neuro: Alert and oriented X 3 - Psych Psych: Normal mood, Normal affect Results - Vitals Vitals: Oxygen O2 Source Room air - Labs Labs: Laboratory Tests 01/15/19 01/15/19 01/15/19 03:42 04:05 04:05 WBC 14.1 H RBC 4.62 Hgb 14.0 Hct 41.5 MCV 89.8 MCH 30.3 MCHC 33.7 RDW 12.7 Plt Count 272 MPV 10.1 Neut # (Auto) 12.1 H Lymph # (Auto) 1.1 L [place] # (Auto) 0.6 Eos # (Auto) 0.1 Baso # (Auto) 0.0 Absolute Nucleated RBC 0.00 Nucleated RBC % 0.0 PT 19.9 H INR 1.8 H Sodium Potassium Chloride Carbon Dioxide Anion Gap BUN Creatinine Estimated GFR (MDRD) Glucose Calcium Urine Color DARK YELLOW Urine Clarity HAZY Urine pH 6.5 Ur Specific [place] <=1.005 Urine Protein 100 H Urine Glucose (UA) NEGATIVE Urine Ketones NEGATIVE Urine Occult Blood LARGE H Urine Nitrite POSITIVE H Urine Bilirubin NEGATIVE Urine Urobilinogen 1 (NORMAL) Ur Leukocyte Esterase MODERATE H Urine RBC TNTC H Urine WBC 11-25 H Ur Squamous Epith Cells RARE Squamous Urine Bacteria Few Ur Microscopic Review INDICATED Urine Culture Comments INDICATED 01/15/19 04:05 WBC RBC Hgb Hct MCV MCH MCHC RDW Plt Count MPV Neut # (Auto) Lymph # (Auto) [place] # (Auto) Eos # (Auto) Baso # (Auto) Absolute Nucleated RBC Nucleated RBC % PT INR Sodium 143 Potassium 3.8 Chloride 109 Carbon Dioxide 22 Anion Gap 12.0 BUN 13 Creatinine 0.7 Estimated GFR (MDRD) 84 L Glucose 112 H Calcium 9.2 Urine Color Urine Clarity Urine pH Ur Specific [place] Urine Protein Urine Glucose (UA) Urine Ketones Urine Occult Blood Urine Nitrite Urine Bilirubin Urine Urobilinogen Ur Leukocyte Esterase Urine RBC Urine WBC Ur Squamous Epith Cells Urine Bacteria Ur Microscopic Review Urine Culture Comments PD MEDICAL DECISION MAKING - ED course Complexity details: considered differential (Cystitis, hemorrhagic cystitis, nephrolithiasis, bladder mass, Anemia) ED course: On examination patient is well-appearing, she is a benign abdominal exam. Her labs show a normal hemoglobin, leukocytosis of 14, and elevated INR consistent with her Xarelto use. Her urine is positive for infection and is nitrite positive. Patient most likely has a hemorrhagic cystitis, she does not have any symptoms of obstruction at this time, and no signs of significant bleeding. She is given a dose of Keflex here and we will start her on Cefdinir. I discussed with her that if she has any continued blood in her urine she needs to follow-up with her primary care provider and have a repeat urinalysis. I also discussed that if she develops fever, worsening abdominal pain, flank pain, or not improving symptoms she should return to the emergency department. She should also return if she develops any difficulty or inability urinating patient agreed to this plan and was discharged home. Departure - Departure Disposition: , Self Care Clinical Impression: Urinary tract infection Qualifiers: Urinary tract infection type: acute cystitis Hematuria presence: with hematuria Qualified Code(s): N30.01 - Acute cystitis with hematuria Condition: Good Instructions: ED UTI Cystitis Female Follow-Up: Your,PCP [Other] Prescriptions: Cefdinir 300 mg PO BID #14 capsule Fluconazole 150 mg PO ONCE #1 tablet Comments: You were seen today for pain on urination and blood in your urine, you appear to have a urinary tract infection. Please take all the antibiotic as prescribed. If you are unable to urinate, develop increasing abdominal pain, fever, or worsening despite the antibiotics, return to the emergency department. Otherwise please follow-up with your primary care provider. If you have any continued blood in your urine after treatment you will need a follow-up urinalysis and may need to see a urologist. Discharge Date/Time: 01/15/19 04:56
[2019-01-15 03:52] LABS: BILIRUBIN,URINE NEGATIVE (NEGATIVE); GLUCOSE, URINE (UA) NEGATIVE (NEGATIVE); KETONES,URINE (UA) NEGATIVE (NEGATIVE); LEUKOCYTE ESTERASE, URINE MODERATE (NEGATIVE); NITRITE,URINE POSITIVE (NEGATIVE); OCCULT BLOOD,URINE LARGE (NEGATIVE); PH,URINE 6.5 PH (5.0-7.5); PROTEIN,URINE 100 mg/dL (NEGATIVE); UROBILINOGEN,URINE 1 (NORMAL) E.U./dL (NORMAL)
[2019-01-15 04:00] LABS: BACTERIA,URINE Few /HPF (None Seen); CLARITY,URINE HAZY (CLEAR); RBC,URINE TNTC /HPF (0-5); SQUAMOUS EPITHELIAL CELL,UR RARE Squamous (<= Few)
[2019-01-15 04:05] VITALS: BP 142/109
[2019-01-15 04:18] LABS: BASOPHILS % (AUTO) 0.3 %; EOSINOPHILS # (AUTO) 0.1 10^3/uL (0.0-0.7); EOSINOPHILS % (AUTO) 0.6 %; LYMPHOCYTES # (AUTO) 1.1 10^3/uL (1.5-3.5); MEAN CORPUSCULAR HEMOGLOBIN 30.3 pg (27.0-31.0); MEAN CORPUSCULAR HGB CONC 33.7 g/dL (32.0-36.0); MEAN CORPUSCULAR VOLUME 89.8 fL (81.0-99.0); MEAN PLATELET VOLUME 10.1 fL (7.9-10.8); MONOCYTES # (AUTO) 0.6 10^3/uL (0.0-1.0); MONOCYTES % (AUTO) 4.6 %; NEUTROPHILS # (AUTO) 12.1 10^3/uL (1.5-6.6); NEUTROPHILS % (AUTO) 86.1 %; PLT - PLATELET COUNT 272 10^3/uL (130-450); RED BLOOD COUNT 4.62 10^6/uL (4.20-5.40); RED CELL DISTRIBUTION WIDTH 12.7 % (12.0-15.0); WHITE BLOOD COUNT 14.1 x10^3/uL (4.8-10.8)
[2019-01-15 04:25] LABS: INR 1.8 (0.8-1.2); PT - PROTHROMBIN TIME 19.9 secs (9.9-12.6)
[2019-01-15 04:26] LABS: CALCIUM 9.2 mg/dL (8.5-10.3); CREATININE 0.7 mg/dL (0.4-1.0)
[2019-01-15] MEDS ORDERED: cephALEXin 250 MG CAPSULE PO STA (04:38)
== END 2019-01-15 04:56 | disposition home or self-care (01) ==
LOC: EDUNIT# → ED 03:39
DX: N30.01 Acute cystitis with hematuria (principal); F17.200 Nicotine dependence, unspecified, uncomplicated
CPT/HCPCS: 36415; 80048; 81001; 85025; 85610; 87086; 99283; 99284; A9270; 81003

== ENCOUNTER 2019-03-09 10:13 | Outpatient (CLI) | payer OTHER ==
[2019-03-09 17:59] LABS: ALBUMIN 4.3 g/dL (3.2-5.5); ALBUMIN/GLOBULIN RATIO 1.6 (1.0-2.2); ALKALINE PHOSPHATASE 61 IU/L (42-121); ALT ALANINE AMINOTRANSFERASE 17 IU/L (10-60); AST ASPARTATE AMINOTRANSFERASE 15 IU/L (10-42); BILIRUBIN,TOTAL 0.5 mg/dL (0.2-1.0); BUN - BLOOD UREA NITROGEN 16 mg/dL (6-20); CALCIUM 8.9 mg/dL (8.5-10.3); CARBON DIOXIDE - CO2 26 mmol/L (21-32); CHLORIDE 106 mmol/L (101-111); CHOLESTEROL 264 mg/dL; CREATININE 0.7 mg/dL (0.4-1.0); GFR - MDRD 84 (>89); GLUCOSE 101 mg/dL (70-100); HDL CHOLESTEROL 53 mg/dL; LDL CHOLESTEROL,CALCULATED 188 mg/dL; LDL/HDL RATIO 3.5 (<4.4); SODIUM 140 mmol/L (135-145); VLDL CHOLESTEROL 23 mg/dL
== END 2019-03-09 10:14 | disposition home or self-care (01) ==
LOC: LAB.S 10:13
PROVIDERS: ATTEND Registered Nurse
DX: E78.5 Hyperlipidemia, unspecified (principal); R94.6 Abnormal results of thyroid function studies
CPT/HCPCS: 36415; 80053; 80061; 83721; 84443

== ENCOUNTER 2019-04-08 06:56 | Day surgery (SDC) | payer OTHER ==
[2019-04-08] MEDS ORDERED: LACTATED RINGERS 1,000 ML IV ONE (07:35)
[2019-04-08] MEDS ORDERED: ONDANSETRON 4 MG/2 ML VIAL ONE (07:58)
[2019-04-08] MEDS ORDERED: MIDAZOLAM 2 MG/2 ML VIAL IVP ONE (08:05)
[2019-04-08] MEDS ORDERED: fentaNYL 250 MCG/5 ML VIAL IVP ONE (08:05)
[2019-04-08 09:27] VITALS: BP 115/79
== END 2019-04-08 06:57 | disposition home or self-care (01) ==
LOC: SDS 06:56
PROVIDERS: ATTEND Surgery
PROC: 0DBC8ZZ Excision of Ileocecal Valve, Via Natural or Artificial Opening Endoscopic (ICD-10-PCS; principal; 2019-04-08 08:15)
DX: Z12.11 Encounter for screening for malignant neoplasm of colon (principal); D12.0 Benign neoplasm of cecum; I10 Essential (primary) hypertension; F17.210 Nicotine dependence, cigarettes, uncomplicated
CPT/HCPCS: 45380; J3010; J7120

== ENCOUNTER 2019-04-15 08:12 | Outpatient (CLI) | payer OTHER ==
--- NOTE | 2019-04-16 08:53 | Mammography Report ---
Reason: ROUTINE MAMMO Procedure Date: 04/15/2019 Accession Number: [id number] / [id number] Procedure: SONNY - Screening Mammo w/Marco CPT Code: Final Report FULL RESULT: EXAM: Screening Mammo w/Marco DATE: 04/15/2019 8:48 AM CLINICAL HISTORY: Screening encounter. TECHNIQUE: (B) - Bilateral CC, laterally exaggerated CC, MLO views were obtained. COMPARISON: 01/17/2016 through 11/10/2009. PARENCHYMAL PATTERN: (D) - The breast(s) demonstrate(s) heterogeneously dense fibroglandular parenchyma. FINDINGS: There are coarse typically benign calcifications. There are no suspicious masses, calcifications, or areas of distortion. IMPRESSION: Benign findings. BI-RADS category 2. RECOMMENDATION: (ANNUAL) - Recommend routine annual screening mammography. BI-RADS CATEGORY: (2) - Benign Findings. STANDARD QUALIFYING STATEMENTS: 1. This examination was not reviewed with the aid of Computer-Aided Detection (CAD). 2. A negative or benign imaging report should not preclude biopsy if clinically suspicious findings are present. 3. Dense breasts may obscure an underlying neoplasm. 4. This examination was reviewed with the aid of 3D breast imaging (tomosynthesis).
== END 2019-04-15 08:13 | disposition home or self-care (01) ==
LOC: DI 08:12
PROVIDERS: ATTEND Registered Nurse
DX: Z12.31 Encounter for screening mammogram for malignant neoplasm of breast (principal)
CPT/HCPCS: 77063; 77067

== ENCOUNTER 2019-04-15 08:14 | Outpatient (CLI) | payer OTHER ==
--- NOTE | 2019-04-16 08:49 | DEXA Report ---
Reason: POSTMENOPAUSAL Procedure Date: 04/15/2019 Accession Number: [id number] / [id number] Procedure: DEX - Dexa Spine and/or Hip CPT Code: Final Report FULL RESULT: EXAM: Dexa Spine and/or Hip DATE: 04/15/2019 8:56 AM CLINICAL HISTORY: POSTMENOPAUSAL TECHNIQUE: Dual energy x-ray absorptiometry (DXA) was performed on a [employer] System. Regions measured are the AP Spine, femoral neck, and if needed forearm. COMPARISON: 03/07/2016. In accordance with the International Society for Clinical Densitometry (ISCD) guidelines, data from previous exams may be reanalyzed using current recommendations and techniques. This is done to allow a more accurate basis for comparison with the current study. FINDINGS: The data for the lumbar spine is as follows: BMD (g/cm/cm) T-SCORE Z-SCORE REGION L1 0.927 -1.7 -0.3 L2 1.110 -0.7 0.6 L3 1.014 -1.5 -0.2 L4 1.089 -0.9 0.4 TOTAL 1.037 -1.2 0.2 NOTE: All evaluable vertebrae are used for classification The data for the hip is as follows: BMD (g/cm/cm) T-SCORE Z-SCORE REGION Neck 0.762 -2.0 -0.7 TOTAL 0.833 -1.4 -0.4 NOTE: The femoral neck or total proximal femur, whichever is lowest, is used for classification. DXA RESULTS SUMMARY: Spine SCAN DATE AGE BMD CHANGE VS CHANGE VS PREVIOUS PREVIOUS % 3/15/2019 64.4 1.037 -0.016 -1.5 03/07/2016 60.3 1.053 * Denotes significant change at the 95% confidence level. Denotes dissimilar scan types or analysis methods. DXA RESULTS SUMMARY: Hip SCAN DATE AGE BMD CHANGE VS CHANGE VS PREVIOUS PREVIOUS % [birth year][age]15/2019 64.4 0.833 -0.025 -2.9 03/07/2016 60.3 0.858 * Denotes significant change at the 95% confidence level. Denotes dissimilar scan types or analysis methods. IMPRESSION: THE WHO CLASSIFICATION BASED ON THE INTERNATIONAL REFERENCE STANDARD IS OSTEOPENIA. THE FRACTURE RISK IS INCREASED. RECOMMENDATION: Patients with diagnosis of osteoporosis or osteopenia should have regular bone mineral density assessment. For those eligible for Medicare, routine testing is allowed once every 2 years. Testing frequency can be increased for patients who have rapidly progressing disease or for those who are receiving medical therapy to restore bone mass. COMMENT: World Health Organization (WHO) definitions for osteoporosis and osteopenia: NORMAL BMD: T-score at -1.0 or higher, fracture risk is low OSTEOPENIA BMD: T-score between -1.0 and -2.5, fracture risk is increased. OSTEOPOROSIS BMD: T-score at -2.5 or lower, fracture risk is high. National Osteoporosis Foundation recommends: 1. Obtain adequate dietary calcium (at least 1200 mg per day) and vitamin D (400-800 international units per day). 2. Participate, as appropriate, in regular weightbearing and muscle-strengthening exercise. 3. Avoid tobacco use and reduce alcohol and caffeine intake. 4. For more detailed information see the website at www.NOF.org.
== END 2019-04-15 08:15 | disposition home or self-care (01) ==
LOC: DI 08:14
PROVIDERS: ATTEND Registered Nurse
DX: M85.89 Other specified disorders of bone density and structure, multiple sites (principal)
CPT/HCPCS: 77080

== ENCOUNTER 2020-06-02 08:00 | Outpatient (CLI) | payer OTHER | END 2020-06-02 23:59 | disposition home or self-care (01) | LOC: LAB.R 08:00 | PROVIDERS: ATTEND Physician Assistant Medical | DX: N39.0 Urinary tract infection, site not specified (principal) | CPT/HCPCS: 87086 ==

== ENCOUNTER 2021-01-23 08:00 | Outpatient (CLI) | payer OTHER | END 2021-01-23 23:59 | disposition home or self-care (01) | LOC: LAB.S 08:00 | PROVIDERS: ATTEND Emergency Medicine | DX: R05.9 Cough, unspecified (principal); R39.15 Urgency of urination; Z20.822 Contact with and (suspected) exposure to COVID-19 | CPT/HCPCS: 87077; 87086; 87181 ==

== ENCOUNTER 2021-01-30 15:54 | Outpatient (CLI) | payer OTHER ==
[2021-01-30 20:18] LABS: BILIRUBIN,URINE NEGATIVE (NEGATIVE); CLARITY,URINE CLOUDY (CLEAR); GLUCOSE, URINE (UA) NEGATIVE (NEGATIVE); KETONES,URINE (UA) NEGATIVE (NEGATIVE); LEUKOCYTE ESTERASE, URINE TRACE (NEGATIVE); NITRITE,URINE NEGATIVE (NEGATIVE); OCCULT BLOOD,URINE SMALL (NEGATIVE); PH,URINE 5.5 PH (5.0-7.5); PROTEIN,URINE NEGATIVE (NEGATIVE); UROBILINOGEN,URINE 0.2 (NORMAL) E.U./dL (NORMAL)
[2021-01-30 20:43] LABS: AMORPHOUS SEDIMENT,UR Marked /LPF; BACTERIA,URINE Few /HPF (None Seen); CRYSTALS,URINE 26-50 Ca Oxalate /LPF; RBC,URINE 0-5 /HPF (0-5); SQUAMOUS EPITHELIAL CELL,UR RARE Squamous (<= Few); WBC,URINE 0-3 /HPF (0-5)
== END 2021-01-30 15:55 | disposition home or self-care (01) ==
LOC: LAB.S 15:54
PROVIDERS: ATTEND Emergency Medicine
DX: N39.0 Urinary tract infection, site not specified (principal)
CPT/HCPCS: 81001; 87086

== ENCOUNTER 2021-02-02 10:37 | Outpatient (CLI) | payer OTHER ==
[2021-02-02 15:12] LABS: BASOPHILS # (AUTO) 0.1 10^3/uL (0.0-0.1); EOSINOPHILS # (AUTO) 0.2 10^3/uL (0.0-0.7); EOSINOPHILS % (AUTO) 3.9 %; HCT - HEMATOCRIT 45.1 % (37.0-47.0); HGB - HEMOGLOBIN 14.6 g/dL (12.0-16.0); LYMPHOCYTES # (AUTO) 1.8 10^3/uL (1.5-3.5); LYMPHOCYTES % (AUTO) 30.7 %; MEAN CORPUSCULAR HEMOGLOBIN 29.7 pg (27.0-31.0); MEAN CORPUSCULAR HGB CONC 32.4 g/dL (32.0-36.0); MEAN CORPUSCULAR VOLUME 91.9 fL (81.0-99.0); MEAN PLATELET VOLUME 10.9 fL (7.9-10.8); MONOCYTES # (AUTO) 0.3 10^3/uL (0.0-1.0); MONOCYTES % (AUTO) 5.6 %; NEUTROPHILS # (AUTO) 3.5 10^3/uL (1.5-6.6); NEUTROPHILS % (AUTO) 58.6 %; PLT - PLATELET COUNT 302 10^3/uL (130-450); RED BLOOD COUNT 4.91 10^6/uL (4.20-5.40); RED CELL DISTRIBUTION WIDTH 12.9 % (12.0-15.0); WHITE BLOOD COUNT 5.9 x10^3/uL (4.8-10.8)
[2021-02-02 15:38] LABS: ALBUMIN 4.1 g/dL (3.2-5.5); ALBUMIN/GLOBULIN RATIO 1.5 (1.0-2.2); ALKALINE PHOSPHATASE 60 IU/L (42-121); ALT ALANINE AMINOTRANSFERASE 18 IU/L (10-60); AST ASPARTATE AMINOTRANSFERASE 13 IU/L (10-42); BILIRUBIN,TOTAL 0.7 mg/dL (0.2-1.0); BUN - BLOOD UREA NITROGEN 12 mg/dL (6-20); CALCIUM 9.1 mg/dL (8.5-10.3); CARBON DIOXIDE - CO2 23 mmol/L (21-32); CHLORIDE 104 mmol/L (101-111); CHOL/HDL RATIO 5.9 (<4.4); CHOLESTEROL 258 mg/dL; CREATININE 0.7 mg/dL (0.4-1.0); GFR - MDRD 84 (>89); GLUCOSE 98 mg/dL (70-100); HDL CHOLESTEROL 44 mg/dL; LDL CHOLESTEROL,CALCULATED 174 mg/dL; POTASSIUM 3.9 mmol/L (3.5-5.0); SODIUM 138 mmol/L (135-145); TOTAL PROTEIN 6.9 g/dL (6.7-8.2); TRIGLYCERIDES 200 mg/dL; VLDL CHOLESTEROL 40 mg/dL
[2021-02-02 15:40] LABS: THYROID STIMULATING HORMONE 3.75 uIU/mL (0.34-5.60)
[2021-02-02 15:45] LABS: BILIRUBIN,URINE NEGATIVE (NEGATIVE); GLUCOSE, URINE (UA) NEGATIVE (NEGATIVE); KETONES,URINE (UA) NEGATIVE (NEGATIVE); LEUKOCYTE ESTERASE, URINE SMALL (NEGATIVE); NITRITE,URINE NEGATIVE (NEGATIVE); OCCULT BLOOD,URINE MODERATE (NEGATIVE); PROTEIN,URINE NEGATIVE (NEGATIVE); UROBILINOGEN,URINE 0.2 (NORMAL) E.U./dL (NORMAL)
[2021-02-02 16:09] LABS: CLARITY,URINE HAZY (CLEAR); WBC,URINE 0-3 /HPF (0-5)
[2021-02-02 16:10] LABS: BACTERIA,URINE Rare /HPF (None Seen); CRYSTALS,URINE 26-50 Ca Oxalate /LPF; SQUAMOUS EPITHELIAL CELL,UR RARE Squamous (<= Few)
[2021-02-02 20:02] LABS: ESTIMATED AVERAGE GLUCOSE 114 mg/dL (70-100); HEMOGLOBIN A1c% 5.6 % (4.27-6.07)
== END 2021-02-02 10:38 | disposition home or self-care (01) ==
LOC: LAB.S 10:37
PROVIDERS: ATTEND Nurse Practitioner
DX: E78.5 Hyperlipidemia, unspecified (principal); R53.83 Other fatigue
CPT/HCPCS: 36415; 80053; 80061; 81001; 83036; 83721; 84443; 85025; 87086

== ENCOUNTER 2021-05-22 08:56 | Outpatient (CLI) | payer OTHER ==
--- NOTE | 2021-05-23 10:17 | Mammography Report ---
BILATERAL DIGITAL SCREENING MAMMOGRAM 3D/2D WITH EXAGGERATED CC: 05/22/2021 CLINICAL: Routine screening. Comparison is made to exams dated: 04/15/2019 mammogram and 01/17/2016 mammogram - [facility]. The tissue of both breasts is heterogeneously dense. This may lower the sensitivity of m ammography. No significant masses, calcifications, or other findings are seen in either breast. There has been no significant interval change. IMPRESSION: NEGATIVE There is no mammographic evidence of malignancy. A 1 year screening mammogram is recommended. This exam was interpreted at Station ID: [id number]. NOTE: For mammograms, a report in lay terms will be sent to the patient. Approximately 15% of breast malignancies will not be visualized mammographically. In the management of a palpable breast mass, a negative mammogram must not discourage biopsy of a clinically suspicious lesion. Electronically Signed By: Cristi Augustin M.D. ar/penrad:05/22/2021 12:46:23 ACR BI-RADS Category 1: Negative 3341F PARENCHYMAL PATTERN: (D) - The breast(s) demonstrate(s) heterogeneously dense fibroglandular sarah ocampo. BI-RADS CATEGORY: (1) - 1 RECOMMENDATION: (ANNUAL) - Recommend routine annual screening mammography. [id number] 1 year screening LATERALITY: (B)
== END 2021-05-22 08:57 | disposition home or self-care (01) ==
LOC: DI.S 08:56
PROVIDERS: ATTEND Nurse Practitioner
DX: Z12.31 Encounter for screening mammogram for malignant neoplasm of breast (principal)

== ENCOUNTER 2021-05-24 14:22 | Outpatient (CLI) | payer OTHER ==
--- NOTE | 2021-05-24 16:49 | DEXA Report ---
PROCEDURE: Dexa Spine and/or Hip INDICATIONS: OSTEOPENIA TECHNIQUE: Dual energy x-ray absorptiometry (DXA) was performed on a [employer] System. Regions measur ed are the AP Spine, femoral neck, and if needed forearm. COMPARISON: None. FINDINGS: Lumbar Spine: Bone Mineral Density 1.1 g/cm/cm,T score -1.2, osteopenia Left Hip: Bone Mineral Density 0.8 g/cm/cm,T score -1.7, osteopenia Impression: Osteopenia. Patients with diagnosis of osteoporosis or osteopenia should have regular bone mineral density assess ment. For those eligible for Medicare, routine testing is allowed once every 2 years. Testing frequ ency can be increased for patients who have rapidly progressing disease or for those who are receivin g medical therapy to restore bone mass. Reviewed by: Dominic Hong MD on 05/24/2021 4:48 PM PST Approved by: Dominic Hong MD on 05/24/2021 4:48 PM PST Station ID: [id number]
== END 2021-05-24 14:23 | disposition home or self-care (01) ==
LOC: DI 14:22
PROVIDERS: ATTEND Nurse Practitioner
DX: M85.89 Other specified disorders of bone density and structure, multiple sites (principal)

== ENCOUNTER 2021-09-12 02:15 | Outpatient (CLI) | payer OTHER | END 2021-09-12 02:16 | disposition critical access hospital (66) | LOC: EMS 02:15 | DX: R07.89 Other chest pain (principal); R42 Dizziness and giddiness; R20.2 Paresthesia of skin; R11.0 Nausea; R06.4 Hyperventilation | CPT/HCPCS: A0425; A0427 ==

== ENCOUNTER 2021-09-12 02:45 | Emergency (ER) | payer OTHER ==
[2021-09-12 03:22] LABS: BASOPHILS # (AUTO) 0.1 10^3/uL (0.0-0.1); BASOPHILS % (AUTO) 0.6 %; EOSINOPHILS # (AUTO) 0.2 10^3/uL (0.0-0.7); EOSINOPHILS % (AUTO) 1.9 %; HGB - HEMOGLOBIN 14.4 g/dL (12.0-16.0); LYMPHOCYTES # (AUTO) 1.6 10^3/uL (1.5-3.5); LYMPHOCYTES % (AUTO) 18.5 %; MEAN CORPUSCULAR HEMOGLOBIN 29.7 pg (27.0-31.0); MEAN CORPUSCULAR HGB CONC 32.7 g/dL (32.0-36.0); MEAN CORPUSCULAR VOLUME 90.7 fL (81.0-99.0); MEAN PLATELET VOLUME 10.3 fL (7.9-10.8); MONOCYTES # (AUTO) 0.4 10^3/uL (0.0-1.0); MONOCYTES % (AUTO) 4.5 %; NEUTROPHILS # (AUTO) 6.3 10^3/uL (1.5-6.6); NEUTROPHILS % (AUTO) 74.1 %; PLT - PLATELET COUNT 264 10^3/uL (130-450); RED BLOOD COUNT 4.85 10^6/uL (4.20-5.40); RED CELL DISTRIBUTION WIDTH 13.3 % (12.0-15.0); WHITE BLOOD COUNT 8.4 x10^3/uL (4.8-10.8)
[2021-09-12 03:32] LABS: ALBUMIN 4.3 g/dL (3.2-5.5); ALBUMIN/GLOBULIN RATIO 1.7 (1.0-2.2); BILIRUBIN,TOTAL 0.7 mg/dL (0.2-1.0); CREATININE 0.9 mg/dL (0.4-1.0); POTASSIUM 3.7 mmol/L (3.5-5.0); TOTAL PROTEIN 6.9 g/dL (6.7-8.2)
[2021-09-12] MEDS ORDERED: MECLIZINE 12.5 MG TABLET PO STA ×2 (03:39→07:58)
[2021-09-12] MEDS ORDERED: ONDANSETRON 4 MG/2 ML VIAL IVP STA (03:39)
[2021-09-12] MEDS ORDERED: ONDANSETRON ODT 4 MG TABLET TL STA (04:11)
[2021-09-12] MEDS ORDERED: diazePAM 5 MG TABLET PO STA (05:08)
--- NOTE | 2021-09-12 07:25 | CT Report ---
PROCEDURE: HEAD WO INDICATIONS: severe dizziness TECHNIQUE: Noncontrast 4.5 mm thick angled axial sections acquired from the foramen magnum to the vertex. For r adiation dose reduction, the following was used: automated exposure control, adjustment of mA and/or kV according to patient size. COMPARISON: 09/28/2017 and 12/10/2014. FINDINGS: Image quality: Excellent. CSF spaces: Basal cisterns are patent. No extra-axial fluid collections. Ventricles are normal in size and shape. Brain: No midline shift. No intracranial masses or hemorrhage. Perry-white matter interface is norm al. Skull and face: Calvarium and visualized facial bones are intact, without suspicious lesions. Sinuses: Visualized sinuses and mastoids are clear. IMPRESSION: No acute intracranial disease process. Reviewed by: Deisi Brizuela MD, PhD on 09/12/2021 7:23 AM PDT Approved by: Deisi Brizuela MD, PhD on 09/12/2021 7:23 AM PDT Station ID: [id number]
--- NOTE | 2021-09-12 08:59 | ED Physician Documentation ---
History of Present Illness - Stated complaint Stated Complaint: DIZZY/ARM TINGLE - Chief complaint Chief Complaint: Neuro - History obtained from History obtained from: Patient - History of Present Illness Timing: Enter time (01:00), Today Pain level now: 3 (DELGADO) Improved by: lying still, keeping eyes closed Worsened by: opening eyes, moving head - Additonal information Additional information: c/o sudden onset dizziness with sensation of rotation, distinctly worse with movement of head, associated with nausea and vomiting. Onset 1 AM this morning while at home at rest. Denies h/o similar symptoms. Also notes mild generalized headache. Review of Systems Constitutional: reports: Reviewed and negative Eyes: reports: Photophobia. denies: Loss of vision, Decreased vision Ears: reports: Reviewed and negative Cardiac: reports: Reviewed and negative Respiratory: reports: Reviewed and negative GI: reports: Nausea, Vomiting. denies: Abdominal Pain : reports: Reviewed and negative Musculoskeletal: reports: Reviewed and negative Neurologic: reports: Headache. 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 : None HEENT: None, Other Psych: None Musculoskeletal: None Derm: None - Past Surgical History Past Surgical History: Yes General: Cholecystectomy, Appendectomy, Colonoscopy /RESIDENTIAL DOOR UNIT INSTALLER: Hysterectomy, Other HEENT: Tonsil/Adenoidectomy - Present Medications Home Medications: Ambulatory Orders Medication Instructions Recorded Confirmed Rivaroxaban [Xarelto] 20 mg PO DAILY 01/15/19 09/12/21 diazePAM [Diazepam] 5 mg PO DAILY PRN 01/15/19 09/12/21 Ezetimibe [Zetia] 10 mg PO DAILY 09/12/21 09/12/21 - Allergies Allergies/Adverse Reactions: Allergies Allergy/AdvReac Type Severity Reaction Status Date / Time hormones AdvReac Severe Unknown Uncoded 09/12/21 02:58 - Social History Does the pt smoke?: Yes Smoking Status: Current every day smoker Does the pt drink ETOH?: Yes Does the pt have substance abuse?: No - Immunizations Immunizations are current?: Yes - POLST Patient has POLST: No PD ED PE NORMAL - Vitals Vital signs reviewed: Yes - General General: Alert and oriented X 3, No acute distress (NAD at rest but has sunglasses on and towel over her face), Well developed/nourished - HEENT HEENT: Atraumatic, PERRL, Moist mucous membranes - Neck Neck: Supple, no meningeal sign - Cardiac Cardiac: RRR, No murmur - Respiratory Respiratory: No respiratory distress, Clear bilaterally - Abdomen Abdomen: Soft, Non tender - Derm Derm: Normal color, Warm and dry - Extremities Extremities: No edema - Neuro Neuro: Alert and oriented X 3, front end manager 2-12 intact, No motor deficit, No sensory deficit, Normal speech Results - Vitals Vitals: Vital Signs - 24 hr 09/12/21 09/12/21 09/12/21 02:45 02:57 03:25 Temperature 36.9 C Heart Rate 77 73 79 Respiratory 22 16 18 Rate Blood Pressure 152/96 H O2 Saturation 100 100 99 09/12/21 09/12/21 04:29 06:11 Temperature Heart Rate 80 78 Respiratory 16 20 Rate Blood Pressure 140/89 H O2 Saturation 95 99 Oxygen O2 Source Room air - EKG (time done) No standard instances Rate: Rate (enter#) (73) Rhythm: NSR [place]: Normal Intervals: Normal MD QRS: Normal Ischemia: Normal ST segments - Labs Labs: Laboratory Tests 09/12/21 09/12/21 09/12/21 03:13 03:13 03:13 WBC 8.4 RBC 4.85 Hgb 14.4 Hct 44.0 MCV 90.7 MCH 29.7 MCHC 32.7 RDW 13.3 Plt Count 264 MPV 10.3 Neut # (Auto) 6.3 Lymph # (Auto) 1.6 Campbell # (Auto) 0.4 Eos # (Auto) 0.2 Baso # (Auto) 0.1 Absolute Nucleated RBC 0.00 Nucleated RBC % 0.0 Sodium 139 Potassium 3.7 Chloride 105 Carbon Dioxide 23 Anion Gap 11.0 BUN 17 Creatinine 0.9 Estimated GFR (MDRD) 63 L Glucose 138 H Calcium 9.0 Total Bilirubin 0.7 AST 19 ALT 27 Alkaline Phosphatase 58 Troponin I High Sens < 2.3 L Total Protein 6.9 Albumin 4.3 Globulin 2.6 Albumin/Globulin Ratio 1.7 Lipase 28 - Rads (name of study) CTH Radiology: Prelim report reviewed, See rad report cxr Radiology: Prelim report reviewed, See rad report PD MEDICAL DECISION MAKING - ED course Complexity details: reviewed results, re-evaluated patient, considered differential, d/w patient ED course: c/o sudden onset dizziness with nausea and vomiting; H+P c/w vertigo. She is given 25mg PO meclizine, 4mg IV zofran. CXR, EKG, and blood tests performed as well (considering her medical history (includes PE, on xarelto), severity of symptoms, and description of some left arm "heaviness"). Results of these tests are all unremarkable. Unfortunately, she had minimal change after the meclizine and zofran. I was about to attempt John maneuver, but moving the bed a few inches (so that I could get to head of bed) resulted in severe exacerbation of her vertigo. I then slowly tried to lie patient flat in the bed and she said she felt like she was upside-down. I thus decided to not attempt john maneuver. She is given 5mg valium (she sometimes takes this PRN for sleep) and CTH ordered due to ongoing severity of symptoms. No remarkable findings on this study. On reevaluation, she has mild improvement such that she was able to slowly get to edge of bed with assistance of ED RN and tech and then ambulated to and back from bathroom. She was notably unsteady in her gait and kept her sunglasses on . Care of patient turned over to Dr. Art at end of my shift. Plan is to obtain MRI/A of brain and reassess.
--- NOTE | 2021-09-12 09:04 | XRAY Report ---
PROCEDURE: Chest 1 View X-Ray INDICATIONS: Chest pain TECHNIQUE: One view of the chest was acquired. COMPARISON: 04/25/2017 FINDINGS: Surgical changes and devices: None. Lungs and pleura: No pleural effusions or pneumothorax. Lungs are clear. Mediastinum: Mediastinal contours appear normal. Heart size is normal. Bones and chest wall: No suspicious bony lesions. Overlying soft tissues appear unremarkable. IMPRESSION: No acute cardiopulmonary disease process. Reviewed by: Deisi Brizuela MD, PhD on 09/12/2021 9:03 AM PDT Approved by: Deisi Brizuela MD, PhD on 09/12/2021 9:03 AM PDT Station ID: [id number]
[2021-09-12] MEDS ORDERED: GADOBUTROL 7.5 MMOL/7.5 ML VIAL ONE (09:21)
--- NOTE | 2021-09-12 10:02 | ED Physician Documentation ---
ED Addendum - Addendum Addendum: 09/12/21 10:02 09/12/21 14:28 Patient received a signout from outgoing physician, please see their documentation for further detail. Patient evaluated independently at bedside. Continues to have significant vertigo however no other focal or lateralizing neurologic signs. MRI reviewed. No indications of acute infarct. Did order dose Decadron in the emergency department which seemed to help the patient symptoms. She was able to ambulate with the assistance of a walker. At this time will discharge for follow-up with primary care/ENT as needed. Was provided with contact information for [facility] [place] [facility]. Will discharge on short course of meclizine and Zofran. Otherwise clear return precautions and follow-up instructions were given prior to discharge.
[2021-09-12] MEDS ORDERED: ACETAMINOPHEN 325 MG TABLET PO STA (11:29)
[2021-09-12] MEDS ORDERED: CHERRY SYRUP 10 ML UDC PO ONE (12:59)
[2021-09-12] MEDS ORDERED: fentaNYL 100 MCG/2 ML VIAL IVP STA (12:59)
[2021-09-12] MEDS ORDERED: DEXAMETHASONE 10 MG/ML VIAL PO STA (12:59)
--- NOTE | 2021-09-12 13:20 | MRI Report ---
PROCEDURE: Angio Brain W/O (MRA) INDICATIONS: CONCERN FOR POST CIRC INFARCT TECHNIQUE: Noncontrast axial 3-D [id number] MR angiogram, with 3-dimensional maximum intensity projection (M IP) reformats of the internal carotid arteries and posterior circulation then performed. COMPARISON: Prior brain MR angiogram, 12/12/2014 Correlation is made with the accompanying brain MRI, 09/12/2021. Correlation is also made with the head CT, 09/12/2021. FINDINGS: Image quality: Excellent. Anterior circulation: Intracranial internal carotid arteries demonstrate normal size and intralumina l flow signal. Note is made of a diminutive left A1 segment, with a correspondingly robust right A1 segment. This is considered to be a developmental variant of no clinical consequence. The flow withi n the paired anterior cerebral arteries is otherwise normal and symmetric. The flow within the middl e cerebral arteries is normal and symmetric. The anterior communicating artery is seen. No stenoses , occlusions, or aneurysms. Posterior circulation: The left C4 segment is not well-seen and is believed to be restarted via colla teral circulation. The right distal vertebral artery is within normal limits. There is a normal appea ring basilar artery. Incidental note is made of a prominent right posterior communicating artery, wi th a diminutive right P1 segment. This is attributed to a type origin of the right posterior ce rebral artery, which is considered to be a developmental variant of typically no clinical consequence . The flow within the posterior cerebral arteries is normal and symmetric. No stenoses, occlusions , or aneurysms. IMPRESSION: Poor flow is seen within the distal left vertebral artery, which is believed to be restored via colla teral circulation this represents a change compared to 2014. [place] developmental anomalies are incidentally noted, which are not considered to be clini rosa isela significant. Reviewed by: Marc Sykes MD on 09/12/2021 12:19 PM CHARLES Approved by: Marc Sykes MD on 09/12/2021 12:19 PM CHARLES Station ID: [id number]
--- NOTE | 2021-09-12 13:28 | MRI Report ---
PROCEDURE: Brain W/O INDICATIONS: CONCERN FOR POST CIRC INFARCT TECHNIQUE: Noncontrast axial T1 spin echo, axial T2 fast spin echo, sagittal and axial FLAIR, coronal T2 fast sp in echo, axial gradient echo, axial diffusion and ADC through the brain. COMPARISON: Prior brain MRI, 12/12/2014. Correlation is also made with the accompanying head CT and b rain MR angiogram 09/12/2021. FINDINGS: Image quality: Excellent. CSF Spaces: Basal cisterns are patent. No extra-axial fluid collections. Ventricles are normal in size and shape. Brain: No intracranial masses or hemorrhage. Perry/white matter interface is normal. Brainstem appe ars normal. Diffusion-weighted images demonstrate no acute ischemic insult. No chronic ischemic ins ults. Normal intravascular flow voids are present. Thickening of the right choroid plexus is incide ntally noted, as on series 801 image 12. This is unchanged compared to 2014 and considered to be saran gn. Age-appropriate brain parenchymal volume loss and chronic small vessel ischemic change can be see n. Skull and face: Calvarium has normal marrow signal. Orbits appear normal. Sinuses: Sinuses and mastoids are clear. IMPRESSION: No findings of acute or subacute infarction are seen, including involving the posterior circulation. No prior territorial infarcts can be seen. Age-appropriate brain parenchymal volume loss and chronic small vessel ischemic change can be seen. Reviewed by: Marc Sykes MD on 09/12/2021 12:27 PM CHARLES Approved by: Marc Sykes MD on 09/12/2021 12:27 PM [id number] Station ID: [id number]
[2021-09-12] MEDS ORDERED: HYDROcod/ACETAM 5/325 MG TABLET PO STA (13:39)
[2021-09-12 14:35] VITALS: BP 171/100
== END 2021-09-12 15:29 | disposition home or self-care (01) ==
LOC: EDUNIT# → SUPCPDRO 02:45 → ED 02:45
DX: R42 Dizziness and giddiness (principal); Z86.711 Personal history of pulmonary embolism; Z79.01 Long term (current) use of anticoagulants; F17.200 Nicotine dependence, unspecified, uncomplicated
CPT/HCPCS: 36415; 70450; 70544; 70551; 71045; 80053; 83690; 84484; 85025; 93005; 99284; A9270; Q0162

== ENCOUNTER 2021-09-17 16:38 | Emergency (ER) | payer OTHER ==
[2021-09-17 17:08] LABS: BASOPHILS % (AUTO) 0.2 %; EOSINOPHILS % (AUTO) 0.5 %; HCT - HEMATOCRIT 44.3 % (37.0-47.0); LYMPHOCYTES # (AUTO) 0.6 10^3/uL (1.5-3.5); LYMPHOCYTES % (AUTO) 6.5 %; MEAN CORPUSCULAR HEMOGLOBIN 30.1 pg (27.0-31.0); MEAN CORPUSCULAR HGB CONC 33.9 g/dL (32.0-36.0); MEAN PLATELET VOLUME 10.4 fL (7.9-10.8); MONOCYTES # (AUTO) 0.8 10^3/uL (0.0-1.0); MONOCYTES % (AUTO) 9.9 %; NEUTROPHILS % (AUTO) 82.5 %; PLT - PLATELET COUNT 255 10^3/uL (130-450); RED BLOOD COUNT 4.98 10^6/uL (4.20-5.40); WHITE BLOOD COUNT 8.5 x10^3/uL (4.8-10.8)
[2021-09-17 17:16] LABS: ALBUMIN 4.2 g/dL (3.2-5.5); ALBUMIN/GLOBULIN RATIO 1.2 (1.0-2.2); BILIRUBIN,TOTAL 0.7 mg/dL (0.2-1.0); CALCIUM 9.2 mg/dL (8.5-10.3); CREATININE 0.6 mg/dL (0.4-1.0); POTASSIUM 3.8 mmol/L (3.5-5.0); TOTAL PROTEIN 7.8 g/dL (6.7-8.2)
[2021-09-17 18:06] LABS: GLUCOSE, URINE (UA) NEGATIVE (NEGATIVE); KETONES,URINE (UA) 40 mg/dL (NEGATIVE); LEUKOCYTE ESTERASE, URINE NEGATIVE (NEGATIVE); NITRITE,URINE NEGATIVE (NEGATIVE); OCCULT BLOOD,URINE LARGE (NEGATIVE); PROTEIN,URINE 30 mg/dL (NEGATIVE); UROBILINOGEN,URINE 1 (NORMAL) E.U./dL (NORMAL)
[2021-09-17 18:14] LABS: BILIRUBIN,URINE NEGATIVE (NEGATIVE); CLARITY,URINE HAZY (CLEAR); ICTOTEST,URINE NEGATIVE
[2021-09-17 18:15] LABS: BACTERIA,URINE Few /HPF (None Seen); MUCUS,URINE Moderate Strands; SQUAMOUS EPITHELIAL CELL,UR FEW Squamous (<= Few); WBC,URINE 0-3 /HPF (0-5)
[2021-09-17] MEDS ORDERED: SODIUM CHLORIDE 0.9% 1,000 ML IV STA (18:21)
[2021-09-17] MEDS ORDERED: ONDANSETRON 4 MG/2 ML VIAL IVP STA (18:21)
[2021-09-17] MEDS ORDERED: HYDROmorphone 1 MG/ML CARPUJECT IVP STA (18:21)
--- NOTE | 2021-09-17 18:21 | ED Physician Documentation ---
History of Present Illness - Stated complaint Stated Complaint: ABD PX,VOMIT - Chief complaint Chief Complaint: Abd Pain - Additonal information Additional information: 65-year-old female presents emergency department for evaluation of 3 to 4 days diffuse abdominal pain. Some nausea and vomiting. No diarrhea. Pain is mostly in the upper epigastrium. She has had no fevers melena or hematochezia. No urinary symptoms. She was seen about 5 days ago for vertigo which she reports is fully resolved. Past surgical history is most pertinent for previous cholecystectomy. She reports an incidental finding of an appendix in her upper abdomen at the time of the cholecystectomy which was removed. 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 : None HEENT: None, Other Psych: None Musculoskeletal: None Derm: None - Past Surgical History Past Surgical History: Yes General: Cholecystectomy, Appendectomy, Colonoscopy /SLITTING AND SHIPPING SUPERVISOR: Hysterectomy, Other HEENT: Tonsil/Adenoidectomy - Present Medications Home Medications: Ambulatory Orders Medication Instructions Recorded Confirmed Rivaroxaban [Xarelto] 20 mg PO DAILY 01/15/19 09/12/21 diazePAM [Diazepam] 5 mg PO DAILY PRN 01/15/19 09/12/21 Ezetimibe [Zetia] 10 mg PO DAILY 09/12/21 09/12/21 Meclizine [Antivert] 12.5 mg PO Q6H #30 tablet 09/12/21 Ondansetron Odt [Zofran] 4 mg TL Q6H PRN #10 tablet 09/12/21 Amox/Clav 875/125 [Augmentin] 1 each PO Q12H #20 tablet 09/17/21 Ondansetron Odt [Zofran] 4 mg TL Q6H PRN #10 tablet 09/17/21 oxyCODONE [Roxicodone] 5 mg PO TID PRN #5 tablet 09/17/21 - Allergies Allergies/Adverse Reactions: Allergies Allergy/AdvReac Type Severity Reaction Status Date / Time hormones AdvReac Severe Unknown Uncoded 09/17/21 16:48 - Social History Does the pt smoke?: Yes Smoking Status: Current every day smoker Does the pt drink ETOH?: Yes Does the pt have substance abuse?: No - Immunizations Immunizations are current?: Yes - POLST Patient has POLST: No PD ED PE NORMAL - General General: Alert and oriented X 3, No acute distress - HEENT HEENT: Atraumatic - Neck Neck: Supple, no meningeal sign, No JVD - Cardiac Cardiac: RRR, No murmur - Respiratory Respiratory: No respiratory distress - Abdomen Abdomen: Normal bowel sounds, Soft. No: Non tender (Tenderness in the epigastrium. No lower abdominal tenderness noted.) Results - Vitals Vitals: Vital Signs - 24 hr 09/17/21 09/17/21 16:45 19:05 Temperature 37.5 C Heart Rate 99 86 Respiratory 18 18 Rate Blood Pressure 145/88 H 151/96 H O2 Saturation 98 93 Oxygen O2 Source Room air - Labs Labs: Laboratory Tests 09/17/21 09/17/21 09/17/21 16:59 16:59 17:50 WBC 8.5 RBC 4.98 Hgb 15.0 Hct 44.3 MCV 89.0 MCH 30.1 MCHC 33.9 RDW 13.0 Plt Count 255 MPV 10.4 Neut # (Auto) 7.0 H Lymph # (Auto) 0.6 L [place] # (Auto) 0.8 Eos # (Auto) 0.0 Baso # (Auto) 0.0 Absolute Nucleated RBC 0.00 Nucleated RBC % 0.0 Sodium 134 L Potassium 3.8 Chloride 102 Carbon Dioxide 20 L Anion Gap 12.0 BUN 12 Creatinine 0.6 Estimated GFR (MDRD) 100 Glucose 117 H Calcium 9.2 Total Bilirubin 0.7 AST 18 ALT 27 Alkaline Phosphatase 63 Total Protein 7.8 Albumin 4.2 Globulin 3.6 Albumin/Globulin Ratio 1.2 Lipase 26 Urine Color YELLOW Urine Clarity HAZY Urine pH 6.0 Ur Specific [place] >=1.030 H Urine Protein 30 H Urine Glucose (UA) NEGATIVE Urine Ketones 40 H Urine Occult Blood LARGE H Urine Nitrite NEGATIVE Urine Bilirubin NEGATIVE Urine Urobilinogen 1 (NORMAL) Ur Leukocyte Esterase NEGATIVE Urine RBC 11-25 H Urine WBC 0-3 Ur Squamous Epith Cells FEW Squamous Urine Bacteria Few Urine Mucus Moderate Strands Ur Microscopic Review INDICATED Urine Culture Comments NOT INDICATED - Rads (name of study) Abd/pelvis wo Radiology: Final report received (acute diverticulitis withotu evidence of perfortion or abscess) PD MEDICAL DECISION MAKING - ED course Complexity details: considered differential, d/w patient, d/w family ED course: 65-year-old female presents emergency department for 3 to 4 days of upper abdominal pain nausea and vomiting. Previous history of cholecystectomy. On presentation she is tender in the left upper quadrant and the epigastrium. Screening labs showed no acute worrisome abnormalities. She was given a liter of crystalloid, Dilaudid and Zofran with marked improvement in her symptoms. Noncontrast CT did show acute diverticulitis without any secondary findings of abscess or perforation. Findings were discussed with patient at the bedside. Initial dose of Augmentin was given here tonight in the emergency department she will be discharged with a prescription for Augmentin, oxycodone and Zofran. Discussed emergent return precautions for failure symptoms to improve. Will discuss ED visit with primary care provider. Patient reports he had a colonoscopy about 1 year ago that was unremarkable. I am prescribing a short course of short-acting opioid pain medication for this patient. I have reviewed the patients CEMENTER and no concerning findings were noted. I have discussed that the opioids are for short term therapy only, and will not be refilled from the ED. Departure - Departure Disposition: 01 Home, Self Care Clinical Impression: Diverticulitis Condition: Stable Record reviewed to determine appropriate education?: Yes Instructions: ED Diverticulitis Prescriptions: Amox/Clav 875/125 [Augmentin] 1 each PO Q12H #20 tablet oxyCODONE [Roxicodone] 5 mg PO TID PRN #5 tablet PRN Reason: Pain Ondansetron Odt [Zofran] 4 mg TL Q6H PRN #10 tablet PRN Reason: Nausea / Vomiting Comments: Radha you are seen today in the emergency department for pain in your upper stomach. The CT scan shows that you have diverticulitis which is an inflammation of the large intestine. This is typically managed through a course of antibiotics. A prescription for Augmentin has been sent to the [facility] in [place]. To help manage pain I have ordered a limited amount of oxycodone. You cannot drive if you take this medication. Zofran is a medicine that was also sent for nausea. Typically most cases of diverticulitis will begin to resolve with antibiotics after 2 to 3 days. Over the next 24 hours I recommend frequent sips of clear liquids. If despite the antibiotics, nausea and pain medicine you find that your symptoms are persisting, you have fevers worsening pain or any black bloody or mucoid stools then you should return to the ER for second evaluation
[2021-09-17] MEDS ORDERED: PANTOPRAZOLE 40 MG VIAL IVP STA (18:22)
--- NOTE | 2021-09-17 18:39 | CT Report ---
PROCEDURE: Abdomen/Pelvis WO INDICATIONS: abd pain and nausea TECHNIQUE: No contrast was administered, 5 mm thick sections acquired from the diaphragms to the symphysis. 5 m m thick coronal and sagittal reformats were acquired. For radiation dose reduction, the following wa s used: automated exposure control, adjustment of mA and/or kV according to patient size. COMPARISON: None. FINDINGS: Image quality: Excellent. ABDOMEN: Lung bases: Lung bases are clear. Heart size is normal. Solid organs: Liver: The liver has no mass or intrahepatic biliary ductal dilatation. Biliary: Status post cholecystectomy. [] Pancreas: The pancreas has no mass or ductal dilatation. No surrounding inflammation. Calcifications in the pancreatic head are noted. Spleen: Normal size. No mass. Adrenal glands: The right adrenal gland is normal. There is thickening of the left adrenal gland, unc hanged compared to [address] CT. Kidneys: No obstructive calculus or hydronephrosis. No solid mass. No cystic mass. Bowel: The distal esophagus and stomach are normal. The small bowel has a normal caliber and appeara nce. The terminal ileum is normal. The large bowel has diverticulosis of the sigmoid colon with inf lammation surrounding the proximal sigmoid colon consistent with acute diverticulitis. No evidence of perforation or abscess. Status post appendectomy. Free air/free fluid: No free air or free fluid. Abdominal wall: No abdominal wall mass or hernia. Retroperitoneum: No retroperitoneal or mesenteric adenopathy by size criteria. Aorta and inferior ve na cava are normal in size. Lymph nodes: No adenopathy. Bones: No suspicious bony lesions. No vertebral body compression fractures. PELVIS: Genitourinary: Bladder wall thickness is normal. Miscellaneous: No inguinal hernias or adenopathy. Bones: No suspicious bony lesions. No vertebral body compression fractures. Disc space loss and e ndplate sclerosis consistent with disc disease at L5-S1. Pectus excavatum is noted. IMPRESSION: Acute diverticulitis without evidence of perforation or abscess. Reviewed by: Miguel Alvarado on 09/17/2021 6:37 PM PDT Approved by: Miguel Alvarado on 09/17/2021 6:37 PM PDT Station ID: [id number]
[2021-09-17] MEDS ORDERED: AMOX/CLAV 875 MG/125 MG TABLET PO STA (19:28)
[2021-09-17] MEDS ORDERED: oxyCODONE/ACET 5/325 Prepack 4 PO STA (19:29)
[2021-09-17] MEDS ORDERED: ONDANSETRON ODT 4 MG Prepack 2 TL STA (19:29)
[2021-09-17 20:26] VITALS: BP 146/78
== END 2021-09-17 20:25 | disposition home or self-care (01) ==
LOC: ED 16:38
DX: K57.32 Diverticulitis of large intestine without perforation or abscess without bleeding (principal); F17.200 Nicotine dependence, unspecified, uncomplicated
CPT/HCPCS: 36415; 74176; 80053; 81001; 83690; 85025; 96374; 96375; 99283; 99284; A9270; J1170; 81003; 87086

== ENCOUNTER 2021-09-19 12:38 | Emergency (ER) | payer MEDICARE, OTHER ==
[2021-09-19 13:16] LABS: BASOPHILS % (AUTO) 0.2 %; EOSINOPHILS % (AUTO) 0.7 %; HCT - HEMATOCRIT 42.3 % (37.0-47.0); HGB - HEMOGLOBIN 14.6 g/dL (12.0-16.0); LYMPHOCYTES # (AUTO) 1.1 10^3/uL (1.5-3.5); LYMPHOCYTES % (AUTO) 23.4 %; MEAN CORPUSCULAR HGB CONC 34.5 g/dL (32.0-36.0); MEAN PLATELET VOLUME 10.1 fL (7.9-10.8); MONOCYTES # (AUTO) 0.6 10^3/uL (0.0-1.0); MONOCYTES % (AUTO) 13.1 %; NEUTROPHILS # (AUTO) 2.8 10^3/uL (1.5-6.6); NEUTROPHILS % (AUTO) 62.4 %; PLT - PLATELET COUNT 233 10^3/uL (130-450); RED BLOOD COUNT 4.86 10^6/uL (4.20-5.40); RED CELL DISTRIBUTION WIDTH 12.8 % (12.0-15.0); WHITE BLOOD COUNT 4.5 x10^3/uL (4.8-10.8)
[2021-09-19 13:45] LABS: ALBUMIN 3.7 g/dL (3.2-5.5); ALBUMIN/GLOBULIN RATIO 1.1 (1.0-2.2); BILIRUBIN,TOTAL 0.5 mg/dL (0.2-1.0); CREATININE 0.6 mg/dL (0.4-1.0); POTASSIUM 3.3 mmol/L (3.5-5.0); TOTAL PROTEIN 7.1 g/dL (6.7-8.2)
--- NOTE | 2021-09-19 14:04 | ED Physician Documentation ---
PD HPI ABD PAIN - Stated complaint Stated Complaint: L BACK PAIN - Chief complaint Chief Complaint: Back Pain - History obtained from History obtained from: Patient - History of Present Illness Timing - onset: How many days ago (2) Timing - details: Gradual onset Quality: Aching, Dull, Pain Worsened by: No: Eating, Moving, Breathing, Position Associated symptoms: Fever (subjective), Nausea. No: Vomiting, Hematemesis, Diarrhea, Constipation, Melena, Hematochezia, Dysuria, Hematuria - Additional information Additional information: Patient is a 65-year-old female who presents to the emergency department left- sided abdominal and back pain. This started several days ago. Was seen here 2 days ago and diagnosed with diverticulitis. She states that she is taking the antibiotics as prescribed. But the pain is continuing to worsen. She has not taken any of the pain medication as she "does not like the way it makes me feel". She is here for increased pain. She states that she has had subjective fevers and chills as well Review of Systems Respiratory: denies: Cough GI: denies: Vomiting, Diarrhea : denies: Dysuria, Frequency, Hesitancy Skin: denies: Rash Musculoskeletal: denies: Neck pain, Back pain Neurologic: denies: Headache PD PAST MEDICAL HISTORY - Past Medical History Cardiovascular: Deep vein thrombosis, Pulmonary embolism, Other Respiratory: Other Neuro: Seizure disorder Endocrine/Autoimmune: None GI: GERD HSPT TUTOR: None : None HEENT: None, Other Psych: None Musculoskeletal: None Derm: None - Past Surgical History Past Surgical History: Yes General: Cholecystectomy, Appendectomy, Colonoscopy /HSPT TUTOR: Hysterectomy, Other HEENT: Tonsil/Adenoidectomy - Present Medications Home Medications: Ambulatory Orders Medication Instructions Recorded Confirmed Rivaroxaban [Xarelto] 20 mg PO DAILY 01/15/19 09/19/21 diazePAM [Diazepam] 5 mg PO DAILY PRN 01/15/19 09/19/21 Ezetimibe [Zetia] 10 mg PO DAILY 09/12/21 09/19/21 Ciprofloxacin HCl [Cipro] 500 mg PO BID #20 tablet 09/19/21 Oxycodone HCl/Acetaminophen 1 - 2 each PO Q6H PRN #14 tablet 09/19/21 [Percocet 5-325 mg Tablet] metroNIDAZOLE [Flagyl] 500 mg PO BID #20 tablet 09/19/21 - Allergies Allergies/Adverse Reactions: Allergies Allergy/AdvReac Type Severity Reaction Status Date / Time hormones AdvReac Severe Unknown Uncoded 09/19/21 12:43 - Social History Does the pt smoke?: Yes Smoking Status: Current every day smoker Does the pt drink ETOH?: Yes Does the pt have substance abuse?: No - Immunizations Immunizations are current?: Yes - POLST Patient has POLST: No PD ED PE NORMAL - Vitals Vital signs reviewed: Yes - General General: Alert and oriented X 3, No acute distress - HEENT HEENT: Moist mucous membranes - Neck Neck: Supple, no meningeal sign - Cardiac Cardiac: RRR, Strong equal pulses - Respiratory Respiratory: No respiratory distress, Clear bilaterally - Abdomen Abdomen: Soft, Non distended, Other (Tender to palpation left lower and left upper quadrant. No peritoneal signs.) - Back Back: Other (Mild left CVA tenderness) - Derm Derm: Warm and dry - Extremities Extremities: No edema - Neuro Neuro: Alert and oriented X 3 - Psych Psych: Normal mood, Normal affect Results - Vitals Vitals: Vital Signs - 24 hr 09/19/21 09/19/21 09/19/21 12:39 14:43 16:00 Temperature 36.9 C Heart Rate 79 78 77 Respiratory 18 17 12 Rate Blood Pressure 147/93 H 154/100 H 141/100 H O2 Saturation 97 97 98 09/19/21 17:32 Temperature Heart Rate 69 Respiratory 19 Rate Blood Pressure 139/95 H O2 Saturation 97 Oxygen O2 Source Room air - Labs Labs: Laboratory Tests 09/19/21 09/19/21 09/19/21 13:13 13:13 16:50 WBC 4.5 L RBC 4.86 Hgb 14.6 Hct 42.3 MCV 87.0 MCH 30.0 MCHC 34.5 RDW 12.8 Plt Count 233 MPV 10.1 Neut # (Auto) 2.8 Lymph # (Auto) 1.1 L [place] # (Auto) 0.6 Eos # (Auto) 0.0 Baso # (Auto) 0.0 Absolute Nucleated RBC 0.00 Nucleated RBC % 0.0 Sodium 136 Potassium 3.3 L Chloride 101 Carbon Dioxide 21 Anion Gap 14.0 H BUN 11 Creatinine 0.6 Estimated GFR (MDRD) 100 Glucose 106 H Calcium 9.0 Total Bilirubin 0.5 AST 42 ALT 85 H Alkaline Phosphatase 113 Total Protein 7.1 Albumin 3.7 Globulin 3.4 Albumin/Globulin Ratio 1.1 Lipase 33 Urine Color YELLOW Urine Clarity CLEAR Urine pH 6.0 Ur Specific [place] 1.010 Urine Protein NEGATIVE Urine Glucose (UA) NEGATIVE Urine Ketones 15 H Urine Occult Blood MODERATE H Urine Nitrite NEGATIVE Urine Bilirubin NEGATIVE Urine Urobilinogen 1 (NORMAL) Ur Leukocyte Esterase NEGATIVE Urine RBC 6-10 H Urine WBC 0-3 Ur Squamous Epith Cells FEW Squamous Urine Bacteria Rare Ur Microscopic Review INDICATED Urine Culture Comments NOT INDICATED PD MEDICAL DECISION MAKING - ED course Complexity details: reviewed old records, reviewed results, re-evaluated patient, considered differential, d/w patient ED course: 65-year-old female with diverticulitis. Possible 1 to 2 mm microperforation. We will change her from Augmentin to Cipro Flagyl. Abdomen is soft, nontender nondistended. Normal white blood cell count. Afebrile. Discussed the case with Dr. Aly, recommends outpatient follow-up. Return precautions given. Patient counseled regarding signs and symptoms for which I believe and urgent re-evaluation would be necessary. Patient with good understanding of and agreement to plan and is comfortable going home at this time This document was made in part using voice recognition software. While efforts are made to proofread this document, sound alike and grammatical errors may occur. The CT scan was performed without IV contrast as there is a national shortage of IV contrast. The remaining doses of IV contrast are reserved for specific indications and this patient does not meet criteria at this time. Departure - Departure Disposition: 01 Home, Self Care Clinical Impression: Diverticulitis Condition: Good Instructions: ED Diverticulitis Follow-Up: Faby Donovan ARNP [Primary Care Provider] - Within 3 Days Barak Aly MD [Provider Admit Priv/Credential] - Prescriptions: Ciprofloxacin HCl [Cipro] 500 mg PO BID #20 tablet metroNIDAZOLE [Flagyl] 500 mg PO BID #20 tablet Oxycodone HCl/Acetaminophen [Percocet 5-325 mg Tablet] 1 - 2 each PO Q6H PRN #14 tablet PRN Reason: pain Comments: We will change her antibiotics to ciprofloxacin and Flagyl. You should notice improvement within 2 to 3 days. If you are having persistent or worsening abdominal pain, fever or you are unable to tolerate oral liquids, please return to the emergency department as you may need to be admitted to the hospital. Your white blood cell count is normal today. You do have 1 small area of a potential perforation, 1 to 2 mm, This should resolve on its own, but in some cases can worsen. Your prescriptions were sent to [facility] in [place]. I am prescribing a short course of narcotic pain medication for you. These are potentially dangerous and addictive medications that should be used carefully. These medications may constipate you. Take an [id number] stool softener (docusate) twice daily with plenty of water while taking these medications. If you go 24 hours without a bowel movement, take [id number] miralax, per package instructions. Do not drink or drive while taking these medications. If you received narcotic or sedating medications while in the emergency department, do not drive for 24 hours. Store this medication in a safe, secure place and out of reach of children. It is a violation of federal law to give or sell this medication to another person or to use in a manner other than prescribed. The ED will not refill narcotic prescriptions, including prescriptions lost or stolen. To dispose of unwanted medications: 1. [facility] at [address] [facility] [address] in [place] has a medication drop box. They accept prescription medications (in pill form) Friday through Friday 9:00 a.m. to 5:00 p.m. 2. The [facility] [employer] accepts prescription medications (in pill form only) for disposal year round. Call for more information. 3. Contact the [facility] for the next [facility] sponsored prescription drug collection event. , [phone], or [phone]; Discharge Date/Time: 09/19/21 17:33
[2021-09-19] MEDS: ACETAMINOPHEN 1,000 MG/100 ML 100 ML IV ONE (14:37)
--- NOTE | 2021-09-19 16:21 | CT Report ---
PROCEDURE: Abdomen/Pelvis WO INDICATIONS: diverticulitis, increased abd pain TECHNIQUE: Noncontrast 5 mm thick sections acquired from the diaphragms to the symphysis. 5 mm coronal and sagi ttal reformats were then performed. For radiation dose reduction, the following was used: automated exposure control, adjustment of mA and/or kV according to patient size. COMPARISON: None. FINDINGS: Image quality: Excellent. ABDOMEN: Lung bases: Lung bases are clear. Heart size is normal. Solid organs: Liver: The liver has no mass or intrahepatic biliary ductal dilatation. The portal vein and hepatic veins are patent. Biliary: Status post cholecystectomy. [] Pancreas: The pancreas has no mass or ductal dilatation. No surrounding inflammation. Calcifications in the pancreatic head are noted. Spleen: Normal size. No mass. Adrenal glands: The right adrenal gland is normal. There is thickening of the left adrenal gland, unc hanged compared to 2015 CT. Kidneys: No obstructive calculus or hydronephrosis. No solid mass. No cystic mass. Bowel: The distal esophagus and stomach are normal. The small bowel has a normal caliber and appeara nce. The terminal ileum is normal. The large bowel has diverticulosis of the sigmoid colon with inf lammation surrounding the proximal sigmoid colon consistent with acute diverticulitis. There is now a small 1 to 2 mm focus of extraluminal gas adjacent to the sigmoid in the center of stable inflammat ory change. No evidence of organized abscess. No obstruction. Status post appendectomy. Free air/free fluid: No free air or free fluid. Abdominal wall: No abdominal wall mass or hernia. Retroperitoneum: No retroperitoneal or mesenteric adenopathy by size criteria. Aorta and inferior ve na cava are normal in size. Lymph nodes: No adenopathy. Bones: No suspicious bony lesions. No vertebral body compression fractures. PELVIS: Genitourinary: Bladder wall thickness is normal. Miscellaneous: No inguinal hernias or adenopathy. Bones: No suspicious bony lesions. No vertebral body compression fractures. Disc space loss and e ndplate sclerosis consistent with disc disease at L5-S1. Pectus excavatum is noted. IMPRESSION: 1. Acute diverticulitis. There is now a small 2mm focus of contained extraluminal air in the center o f inflammatory change, but without evidence of organized abscess. Reviewed by: Chuy Arteaga MD on 09/19/2021 3:19 PM CHARLES Approved by: Chuy Arteaga MD on 09/19/2021 3:19 PM CHARLES Station ID: [id number]
[2021-09-19] MEDS: oxyCODONE 5 MG TABLET PO STA (16:51)
[2021-09-19] MEDS: PIPERACILLIN/TAZOBACTAM 3.375 GM in SODIUM CHLORIDE 0.9% MINIBAG 100 ML IV STA (16:51)
[2021-09-19 17:04] LABS: BILIRUBIN,URINE NEGATIVE (NEGATIVE); GLUCOSE, URINE (UA) NEGATIVE (NEGATIVE); KETONES,URINE (UA) 15 mg/dL (NEGATIVE); LEUKOCYTE ESTERASE, URINE NEGATIVE (NEGATIVE); NITRITE,URINE NEGATIVE (NEGATIVE); OCCULT BLOOD,URINE MODERATE (NEGATIVE); PROTEIN,URINE NEGATIVE (NEGATIVE); UROBILINOGEN,URINE 1 (NORMAL) E.U./dL (NORMAL)
[2021-09-19 17:11] LABS: CLARITY,URINE CLEAR (CLEAR)
[2021-09-19 17:19] LABS: BACTERIA,URINE Rare /HPF (None Seen); SQUAMOUS EPITHELIAL CELL,UR FEW Squamous (<= Few); WBC,URINE 0-3 /HPF (0-5)
[2021-09-19 17:33] VITALS: BP 139/95
== END 2021-09-19 17:33 | disposition home or self-care (01) ==
LOC: ED 12:38
DX: K57.92 Diverticulitis of intestine, part unspecified, without perforation or abscess without bleeding (principal); F17.200 Nicotine dependence, unspecified, uncomplicated; Z86.718 Personal history of other venous thrombosis and embolism; Z79.01 Long term (current) use of anticoagulants
CPT/HCPCS: 36415; 74176; 80053; 81001; 83690; 85025; 96365; 96367; 99282; 99284; A9270; J0131; 81003; 87086

== ENCOUNTER 2022-01-24 11:13 | Outpatient (CLI) | payer MEDICARE ==
[2022-01-24 11:37] LABS: BASOPHILS % (AUTO) 0.6 %; EOSINOPHILS # (AUTO) 0.2 10^3/uL (0.0-0.7); EOSINOPHILS % (AUTO) 3.9 %; HCT - HEMATOCRIT 46.2 % (37.0-47.0); LYMPHOCYTES # (AUTO) 1.8 10^3/uL (1.5-3.5); LYMPHOCYTES % (AUTO) 33.8 %; MEAN CORPUSCULAR HEMOGLOBIN 30.1 pg (27.0-31.0); MEAN CORPUSCULAR HGB CONC 32.5 g/dL (32.0-36.0); MEAN CORPUSCULAR VOLUME 92.6 fL (81.0-99.0); MEAN PLATELET VOLUME 9.6 fL (7.9-10.8); MONOCYTES # (AUTO) 0.4 10^3/uL (0.0-1.0); MONOCYTES % (AUTO) 6.4 %; NEUTROPHILS % (AUTO) 55.1 %; PLT - PLATELET COUNT 342 10^3/uL (130-450); RED BLOOD COUNT 4.99 10^6/uL (4.20-5.40); RED CELL DISTRIBUTION WIDTH 12.8 % (12.0-15.0); WHITE BLOOD COUNT 5.4 x10^3/uL (4.8-10.8)
[2022-01-24 11:49] LABS: ALBUMIN 4.1 g/dL (3.2-5.5); ALBUMIN/GLOBULIN RATIO 1.4 (1.0-2.2); BILIRUBIN,TOTAL 0.4 mg/dL (0.2-1.0); CALCIUM 9.4 mg/dL (8.5-10.3); CREATININE 0.7 mg/dL (0.4-1.0); POTASSIUM 4.1 mmol/L (3.5-5.0); TOTAL PROTEIN 7.1 g/dL (6.7-8.2)
== END 2022-01-24 11:14 | disposition home or self-care (01) ==
LOC: LAB 11:13
PROVIDERS: ATTEND Physician Assistant Medical
DX: R68.89 Other general symptoms and signs (principal)
CPT/HCPCS: 36415; 80053; 85025

== ENCOUNTER 2022-01-24 11:13 | Outpatient (CLI) | payer MEDICARE ==
[2022-01-24] MEDS ORDERED: DIATRIZOATE MEGLU/DIATRIZO SOD 30 ML BOTTLE PO ONE ×2 (11:34→14:16)
[2022-01-24] MEDS ORDERED: iohexoL-300 100 ML VIAL ONE (11:34)
[2022-01-24] MEDS ORDERED: iohexoL-300 100 ML VIAL IVP ONE (14:17)
--- NOTE | 2022-01-24 18:25 | CT Report ---
PROCEDURE: Abdomen/Pelvis W INDICATIONS: ABD PAIN CONTRAST: IV CONTRAST: Isovue 300 ml: 100 PO CONTRAST: Isovue 300 ml50 TECHNIQUE: After the administration of IV and oral contrast, 5 mm thick sections acquired from the diaphragms to the symphysis. 5 mm thick coronal and sagittal reformats were acquired. For radiation dose reducti on, the following was used: automated exposure control, adjustment of mA and/or kV according to armando ent size. COMPARISON: 09/19/2021, 09/17/2021 FINDINGS: Image quality: Excellent. ABDOMEN: Lung bases: Lung bases are clear. Heart size is normal. Solid organs: Diffuse fatty liver infiltration can be seen. The liver demonstrates normal size and demonstrates no suspicious lesions. The spleen demonstrates normal size and demonstrates no suspicious lesions. Status post cholecystectomy. Biliary system is non dilated. Pancreas enhances normally. Generalized thickening is seen of the left adrenal gland. The right adrenal gland is within normal li mits. Kidneys demonstrate normal size and enhancement, without hydronephrosis. Peritoneum and bowel: Within the distal descending colon, there is focal wall thickening with surrou nding inflammatory change. Moderate to prominent diverticula formation can be seen within this region . No findings of perforation or abscess can be seen. On the prior CT study, there was sigmoid diverticulitis seen, which has now resolved. Bowel loops otherwise demonstrate normal wall thickness and caliber. No free fluid or air. A prior a ppendectomy clip can be seen. Nodes and vessels: No retroperitoneal or mesenteric adenopathy by size criteria. Aorta and inferior vena cava are normal in size. Miscellaneous: No ventral hernias. PELVIS: Genitourinary: Bladder wall thickness is normal. This patient is status post hysterectomy. No adnex al masses can be seen. Miscellaneous: No inguinal hernias or adenopathy. Bones: No suspicious bony lesions. No vertebral body compression fractures. Focal L5-S1 degenerati ve change is seen. Milder degenerative changes are seen elsewhere. IMPRESSION: There is focal diverticulitis seen involving the distal descending colon, without findings of perfora tion or abscess. This area of diverticulitis is different from the prior CT, where there was sigmoid diverticulitis, w hich has now resolved. A colonoscopy is recommended for further evaluation, following treatment of the patient's current cli nical episode, for evaluation of a potential underlying mass. Incidental note is made of: Fatty liver infiltration Cholecystectomy Generalized thickening of the left adrenal gland, without suspicious nodules. Appendectomy Hysterectomy Focal L5-S1 degenerative change Reviewed by: Marc Sykes MD on 01/24/2022 5:23 PM CHARLES Approved by: Marc Sykes MD on 01/24/2022 5:23 PM CHARLES Station ID: [id number]
== END 2022-01-24 11:14 | disposition home or self-care (01) ==
LOC: DI 11:13
PROVIDERS: ATTEND Surgery
DX: K57.32 Diverticulitis of large intestine without perforation or abscess without bleeding (principal); R68.89 Other general symptoms and signs
CPT/HCPCS: 36415; 74177; 80053; 85025; Q9963; Q9967

== ENCOUNTER 2022-04-27 00:38 | Outpatient (CLI) | payer MEDICARE | END 2022-04-27 00:39 | disposition critical access hospital (66) | LOC: EMS 00:38 | DX: R10.32 Left lower quadrant pain (principal); R10.814 Left lower quadrant abdominal tenderness | CPT/HCPCS: A0425; A0427 ==

== ENCOUNTER 2022-04-27 01:10 | Emergency (ER) | payer MEDICARE ==
[2022-04-27] MEDS ORDERED: iohexoL-300 100 ML VIAL ONE (01:45)
[2022-04-27 01:46] LABS: BILIRUBIN,URINE NEGATIVE (NEGATIVE); GLUCOSE, URINE (UA) NEGATIVE (NEGATIVE); KETONES,URINE (UA) TRACE mg/dL (NEGATIVE); LEUKOCYTE ESTERASE, URINE TRACE (NEGATIVE); NITRITE,URINE NEGATIVE (NEGATIVE); OCCULT BLOOD,URINE MODERATE (NEGATIVE); PROTEIN,URINE NEGATIVE (NEGATIVE); UROBILINOGEN,URINE 0.2 (NORMAL) E.U./dL (NORMAL)
[2022-04-27 01:49] LABS: CLARITY,URINE CLEAR (CLEAR)
[2022-04-27 01:52] LABS: BACTERIA,URINE Few /HPF (None Seen); SQUAMOUS EPITHELIAL CELL,UR FEW Squamous (<= Few); WBC,URINE 0-3 /HPF (0-5)
[2022-04-27 01:52] LABS: BASOPHILS % (AUTO) 0.2 %; EOSINOPHILS # (AUTO) 0.1 10^3/uL (0.0-0.7); EOSINOPHILS % (AUTO) 0.9 %; HCT - HEMATOCRIT 42.5 % (37.0-47.0); LYMPHOCYTES # (AUTO) 1.6 10^3/uL (1.5-3.5); LYMPHOCYTES % (AUTO) 12.3 %; MEAN CORPUSCULAR HEMOGLOBIN 29.4 pg (27.0-31.0); MEAN CORPUSCULAR HGB CONC 32.9 g/dL (32.0-36.0); MEAN CORPUSCULAR VOLUME 89.1 fL (81.0-99.0); MEAN PLATELET VOLUME 10.3 fL (7.9-10.8); MONOCYTES # (AUTO) 0.9 10^3/uL (0.0-1.0); MONOCYTES % (AUTO) 6.7 %; NEUTROPHILS # (AUTO) 10.3 10^3/uL (1.5-6.6); NEUTROPHILS % (AUTO) 79.7 %; PLT - PLATELET COUNT 285 10^3/uL (130-450); RED BLOOD COUNT 4.77 10^6/uL (4.20-5.40); WHITE BLOOD COUNT 12.9 x10^3/uL (4.8-10.8)
[2022-04-27 01:58] LABS: ALBUMIN 4.1 g/dL (3.2-5.5); ALBUMIN/GLOBULIN RATIO 1.4 (1.0-2.2); BILIRUBIN,TOTAL 0.9 mg/dL (0.2-1.0); CALCIUM 9.1 mg/dL (8.5-10.3); CREATININE 0.7 mg/dL (0.4-1.0); POTASSIUM 3.7 mmol/L (3.5-5.0)
[2022-04-27] MEDS ORDERED: iohexoL-300 100 ML VIAL IVP ONE (02:39)
[2022-04-27] MEDS ORDERED: SODIUM CHLORIDE 0.9% 1,000 ML IV STA (03:01)
[2022-04-27] MEDS ORDERED: MORPHINE 2 MG/ML CARPUJECT IVP STA (03:01)
--- NOTE | 2022-04-27 03:34 | ED Physician Documentation ---
PD HPI ABD PAIN - Stated complaint Stated Complaint: LEFT SIDE ABD PAIN, RIGIDITY - Chief complaint Chief Complaint: Abd Pain - History obtained from History obtained from: Patient - Additional information Additional information: Patient is a 66-year-old female with a history of a PE (on Xarelto) presenting for evaluation of left-sided abdominal pain that has been ongoing for around 15 hours.Pain is sharp. Nothing makes it better or worse. She denies nausea, vomiting or diarrhea. She reports having regular bowel movements. She has had a prior hernia surgery. She denies fever, chest pain, difficulty breathing. EMS did administer 150 mcg of fentanyl which has improved her pain.She denies a history of similar episodes. She denies dysuria, hematuria. Review of Systems Constitutional: denies: Fever Cardiac: denies: Chest pain / pressure Respiratory: denies: Dyspnea GI: reports: Abdominal Pain. 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 : None HEENT: None, Other Psych: None Musculoskeletal: None Derm: None - Past Surgical History Past Surgical History: Yes General: Cholecystectomy, Appendectomy, Colonoscopy /SWIMMING POOL SERVICER: Hysterectomy, Other HEENT: Tonsil/Adenoidectomy - Present Medications Home Medications: Ambulatory Orders Medication Instructions Recorded Confirmed Rivaroxaban [Xarelto] 20 mg PO DAILY 01/15/19 09/19/21 diazePAM [Diazepam] 5 mg PO DAILY PRN 01/15/19 09/19/21 Ezetimibe [Zetia] 10 mg PO DAILY 09/12/21 09/19/21 Ciprofloxacin HCl [Cipro] 500 mg PO BID #20 tablet 09/19/21 Oxycodone HCl/Acetaminophen 1 - 2 each PO Q6H PRN #14 tablet 09/19/21 [Percocet 5-325 mg Tablet] metroNIDAZOLE [Flagyl] 500 mg PO BID #20 tablet 09/19/21 Amox/Clav 875/125 [Augmentin] 1 each PO Q12H #20 tablet 04/27/22 Ondansetron Odt [Zofran] 4 mg TL Q6H PRN #10 tablet 04/27/22 Oxycodone HCl/Acetaminophen 1 each PO Q6H PRN #10 tablet 04/27/22 [Percocet 5-325 mg Tablet] - Allergies Allergies/Adverse Reactions: Allergies Allergy/AdvReac Type Severity Reaction Status Date / Time hormones AdvReac Severe Unknown Uncoded 09/19/21 12:43 - Social History Does the pt smoke?: Yes Smoking Status: Current every day smoker Does the pt drink ETOH?: Yes Does the pt have substance abuse?: No - Immunizations Immunizations are current?: Yes - POLST Patient has POLST: No PD ED PE NORMAL - General General: Alert and oriented X 3, No acute distress, Well developed/nourished - HEENT HEENT: Atraumatic - Neck Neck: Supple, no meningeal sign - Cardiac Cardiac: RRR, No murmur - Respiratory Respiratory: No respiratory distress, Clear bilaterally - Abdomen Abdomen: Normal bowel sounds, Soft, Non distended, Other (Left-sided abdominal tenderness to palpation) - Derm Derm: Warm and dry - Extremities Extremities: No edema - Neuro Neuro: Normal speech Results - Vitals Vitals: Vital Signs - 24 hr 04/27/22 04/27/22 01:14 04:00 Temperature 37.1 C Heart Rate 81 89 Respiratory 21 18 Rate Blood Pressure 118/96 H 142/84 H O2 Saturation 99 100 Oxygen O2 Source Room air - EKG (time done) 0149 Rate: Rate (enter#) (81) Rhythm: NSR Ischemia: No: ST elevation c/w ischemia - Labs Labs: Laboratory Tests 04/27/22 04/27/22 04/27/22 01:37 01:41 01:41 WBC 12.9 H RBC 4.77 Hgb 14.0 Hct 42.5 MCV 89.1 MCH 29.4 MCHC 32.9 RDW 13.0 Plt Count 285 MPV 10.3 Neut # (Auto) 10.3 H Lymph # (Auto) 1.6 [place] # (Auto) 0.9 Eos # (Auto) 0.1 Baso # (Auto) 0.0 Absolute Nucleated RBC 0.00 Nucleated RBC % 0.0 Sodium 138 Potassium 3.7 Chloride 107 Carbon Dioxide 22 Anion Gap 9.0 BUN 11 Creatinine 0.7 Estimated GFR (MDRD) 83 L Glucose 120 H Calcium 9.1 Total Bilirubin 0.9 AST 13 ALT 18 Alkaline Phosphatase 66 Total Protein 7.0 Albumin 4.1 Globulin 2.9 Albumin/Globulin Ratio 1.4 Lipase 26 Urine Color YELLOW Urine Clarity CLEAR Urine pH 6.0 Ur Specific [place] 1.010 Urine Protein NEGATIVE Urine Glucose (UA) NEGATIVE Urine Ketones TRACE Urine Occult Blood MODERATE H Urine Nitrite NEGATIVE Urine Bilirubin NEGATIVE Urine Urobilinogen 0.2 (NORMAL) Ur Leukocyte Esterase TRACE H Urine RBC 6-10 H Urine WBC 0-3 Ur Squamous Epith Cells FEW Squamous Urine Bacteria Few Ur Microscopic Review INDICATED Urine Culture Comments INDICATED PD Medical Decision Making - ED course Complexity details: reviewed results, re-evaluated patient, d/w patient ED course: Patient presenting with left-sided abdominal pain. Vital signs are stable. EKG demonstrates a sinus rhythm. Labs reviewed.CT found to have diverticulitis. No signs of perforation or abscess. She is able to tolerate p.o. and her pain is controlled. Will continue with p.o. antibiotics and outpatient care. Patient is comfortable with plan for discharge. She is advised on concerning symptoms to return for. Departure - Departure Disposition: 01 Home, Self Care Clinical Impression: Diverticulitis Condition: Stable Instructions: ED Diverticulitis Prescriptions: Amox/Clav 875/125 [Augmentin] 1 each PO Q12H #20 tablet Oxycodone HCl/Acetaminophen [Percocet 5-325 mg Tablet] 1 each PO Q6H PRN #10 tablet PRN Reason: pain Ondansetron Odt [Zofran] 4 mg TL Q6H PRN #10 tablet PRN Reason: Nausea / Vomiting Comments: Your testing today shows that you have diverticulitis.I sent prescriptions for antibiotics, pain and nausea medications to [facility] in [place]. Return to the ER with any worsening symptoms such as fever, increased pain or any concerns. I am prescribing a short course of narcotic pain medication for you. These are potentially dangerous and addictive medications that should be used carefully. These medications may constipate you. Take an ujkk-cbu-cbhdqay stool softener (docusate) twice daily with plenty of water while taking these medications. If you go 24 hours without a bowel movement, take [id number]-[id number] miralax, per package instructions. Do not drink or drive while taking these medications. If you received narcotic or sedating medications while in the emergency department, do not drive for 24 hours. Store this medication in a safe, secure place and out of reach of children. It is a violation of federal law to give or sell this medication to another person or to use in a manner other than prescribed. The ED will not refill narcotic prescriptions, including prescriptions lost or stolen. To dispose of unwanted medications: 1. [facility] at [address] in [place] has a medication drop box. They accept prescription medications (in pill form) Friday through Friday 9:00 a.m. to 5:00 p.m. 2. The [facility] [employer] accepts prescription medications (in pill form only) for disposal year round. Call for more information. 3. Contact the [facility] for the next [facility] sponsored prescription drug collection event. , [phone], or [phone]; Note that many narcotic pain relievers also contain Tylenol/acetaminophen. Please ensure that your total dose of acetaminophen from all sources does not exceed 3 g (3000 mg) per day.
[2022-04-27] MEDS ORDERED: AMOX/CLAV 875 MG/125 MG TABLET PO STA (03:50)
[2022-04-27] MEDS ORDERED: ONDANSETRON ODT 4 MG Prepack 2 TL PRN (03:51)
[2022-04-27] MEDS ORDERED: oxyCODONE/ACET 5/325 Prepack 4 PO STA (03:51)
[2022-04-27 04:10] VITALS: BP 142/84
--- NOTE | 2022-04-27 08:14 | CT Report ---
PROCEDURE: CT abdomen pelvis with contrast INDICATIONS: L sided abd pain CONTRAST: 100 ML OMNI 300 TECHNIQUE: After the administration of contrast, 5 mm thick sections acquired from the diaphragms to the sym physis. 5 mm thick coronal and sagittal reformats were acquired. For radiation dose reduction, the following was used: automated exposure control, adjustment of mA and/or kV according to patient size . COMPARISON: 01/24/2022 FINDINGS: Image quality: Excellent. ABDOMEN: Lung bases: Lung bases are clear. Heart size is normal. Solid organs: Liver and spleen are normal in size and enhancement. Gallbladder surgically absent. Biliary system is non dilated. Pancreas enhances normally. No adrenal nodules. Right renal scarring . Bilateral renal cysts noted. No calculi are hydronephrosis Peritoneum and bowel: Several diverticuli arise from the sigmoid and descending colon. There is focal wall thickening and pericolonic inflammatory change in the mid descending colon, consistent with div erticulitis. No evidence of organized abscess or free fluid. Appendectomy noted. Nodes and vessels: No retroperitoneal or mesenteric adenopathy by size criteria. Aorta and inferior vena cava are normal in size. Miscellaneous: No ventral hernias. PELVIS: Genitourinary: Bladder wall thickness is normal. Miscellaneous: No inguinal hernias or adenopathy. Bones: No suspicious bony lesions. No vertebral body compression fractures. IMPRESSION: 1. Focal diverticulitis involving the left colon without abscess, perforation or obstruction. Note: Final report is concordant with preliminary interpretation provided by [employer] Reviewed by: Chuy Arteaga MD on 04/27/2022 7:13 AM [facility] Approved by: Chuy Arteaga MD on 04/27/2022 7:13 AM [facility] Station ID: [id number]
== END 2022-04-27 05:41 | disposition home or self-care (01) ==
LOC: ED 01:10
DX: K57.32 Diverticulitis of large intestine without perforation or abscess without bleeding (principal); F17.200 Nicotine dependence, unspecified, uncomplicated
CPT/HCPCS: 36415; 74177; 80053; 81001; 83690; 85025; 87086; 93005; 96361; 96374; 99284; A9270; Q9967; 81003

== ENCOUNTER 2022-07-02 23:15 | Emergency (ER) | payer MEDICARE ==
[2022-07-02 23:37] LABS: BASOPHILS # (AUTO) 0.1 10^3/uL (0.0-0.1); BASOPHILS % (AUTO) 0.3 %; EOSINOPHILS # (AUTO) 0.1 10^3/uL (0.0-0.7); EOSINOPHILS % (AUTO) 0.8 %; HCT - HEMATOCRIT 48.2 % (37.0-47.0); HGB - HEMOGLOBIN 15.7 g/dL (12.0-16.0); LYMPHOCYTES % (AUTO) 13.7 %; MEAN CORPUSCULAR HEMOGLOBIN 29.3 pg (27.0-31.0); MEAN CORPUSCULAR HGB CONC 32.6 g/dL (32.0-36.0); MEAN CORPUSCULAR VOLUME 90.1 fL (81.0-99.0); MEAN PLATELET VOLUME 10.1 fL (7.9-10.8); MONOCYTES # (AUTO) 0.4 10^3/uL (0.0-1.0); MONOCYTES % (AUTO) 3.1 %; NEUTROPHILS # (AUTO) 11.8 10^3/uL (1.5-6.6); NEUTROPHILS % (AUTO) 81.7 %; PLT - PLATELET COUNT 370 10^3/uL (130-450); RED BLOOD COUNT 5.35 10^6/uL (4.20-5.40); RED CELL DISTRIBUTION WIDTH 13.2 % (12.0-15.0); WHITE BLOOD COUNT 14.4 x10^3/uL (4.8-10.8)
[2022-07-02 23:51] LABS: ALBUMIN 4.7 g/dL (3.2-5.5); ALBUMIN/GLOBULIN RATIO 1.5 (1.0-2.2); BILIRUBIN,TOTAL 0.6 mg/dL (0.2-1.0); CALCIUM 9.7 mg/dL (8.5-10.3); CREATININE 0.9 mg/dL (0.4-1.0); POTASSIUM 3.8 mmol/L (3.5-5.0); TOTAL PROTEIN 7.9 g/dL (6.7-8.2)
[2022-07-02] MEDS: FAMOTIDINE 20 MG/2 ML VIAL IVP STA (23:55)
[2022-07-02] MEDS: ONDANSETRON 4 MG/2 ML VIAL IVP STA (23:55)
[2022-07-02] MEDS: MORPHINE 2 MG/ML CARPUJECT IVP STA (23:55)
--- NOTE | 2022-07-03 | ED Physician Documentation ---
History of Present Illness - Stated complaint Stated Complaint: N/V ABD/CHEST PX - Chief complaint Chief Complaint: Abd Pain - History obtained from History obtained from: Patient - Additonal information Additional information: 66-year-old woman with history of chronic diverticulitis with recent flare and ED visit on June 25, currently on Augmentin, presents with vomiting and abdominal pain for the past day. Patient is supposed to have procedure with Dr. luanne cunningham in the morning and did a bowel prep that has been extremely difficult on her body.Denies fever, diarrhea, blood in the emesis. 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: None : Chronic bladder infection HEENT: Chronic vision loss, Other Psych: None Musculoskeletal: None Derm: None - Past Surgical History Past Surgical History: Yes General: Cholecystectomy, Appendectomy, Colonoscopy, EGD /DIRECTOR OF SPEECH PATHOLOGY: Hysterectomy, Other Cardiovascular: Cardiac catheterization HEENT: Tonsil/Adenoidectomy - Present Medications Home Medications: Ambulatory Orders Medication Instructions Recorded Confirmed Rivaroxaban [Xarelto] 20 mg PO DAILY 01/15/19 06/27/22 Ezetimibe [Zetia] 10 mg PO DAILY 09/12/21 06/27/22 - Allergies Allergies/Adverse Reactions: Allergies Allergy/AdvReac Type Severity Reaction Status Date / Time hormones AdvReac Severe Unknown Uncoded 07/02/22 23:21 - Social History Does the pt smoke?: Yes Smoking Status: Current every day smoker Does the pt drink ETOH?: Yes Does the pt have substance abuse?: No - Immunizations Immunizations are current?: Yes - POLST Patient has POLST: No PD ED PE NORMAL - Vitals Vital signs reviewed: Yes - General General: Alert and oriented X 3, No acute distress, Well developed/nourished - HEENT HEENT: Atraumatic, PERRL, EOMI - Neck Neck: Supple, no meningeal sign - Cardiac Cardiac: RRR - Respiratory Respiratory: No respiratory distress, Clear bilaterally - Abdomen Abdomen: Other (Diffuse discomfort to palpate) - Back Back: No CVA TTP Results - Vitals Vitals: Vital Signs - 24 hr 07/02/22 07/03/22 23:21 00:31 Temperature 36.8 C Heart Rate 78 62 Respiratory 16 16 Rate Blood Pressure 158/97 H 149/69 H O2 Saturation 100 97 Oxygen O2 Source Room air - EKG (time done) 2348 EKG releavant findings:: EKG personally interpreted by author of this note. Relevant findings are: Rate: Rate (enter#) (70) Rhythm: NSR [place]: Normal Intervals: Normal MI QRS: Normal Ischemia: Normal ST segments - Labs Labs: Laboratory Tests 07/02/22 07/02/22 07/02/22 23:32 23:32 23:32 WBC 14.4 H RBC 5.35 Hgb 15.7 Hct 48.2 H MCV 90.1 MCH 29.3 MCHC 32.6 RDW 13.2 Plt Count 370 MPV 10.1 Neut # (Auto) 11.8 H Lymph # (Auto) 2.0 [place] # (Auto) 0.4 Eos # (Auto) 0.1 Baso # (Auto) 0.1 Absolute Nucleated RBC 0.00 Nucleated RBC % 0.0 Sodium 139 Potassium 3.8 Chloride 103 Carbon Dioxide 24 Anion Gap 12.0 BUN 13 Creatinine 0.9 Estimated GFR (MDRD) 62 L Glucose 200 H Calcium 9.7 Total Bilirubin 0.6 AST 19 ALT 25 Alkaline Phosphatase 67 Troponin I High Sens 3.7 Total Protein 7.9 Albumin 4.7 Globulin 3.2 Albumin/Globulin Ratio 1.5 Lipase 27 PD Medical Decision Making - ED course ED course: 66-year-old woman presents with diverticulitis flare. She is scheduled was for OR with Dr. stroud tomorrow morning. Lab work benign with the exception of some leukocytosis with white count of 14.4 and glucose of 200. Patient will continue with her antibiotics at home and will need to return in the morning for her procedure. Departure - Departure Disposition: 01 Home, Self Care Clinical Impression: Diverticulitis Condition: Stable Instructions: Diverticulitis Dc Comments: You were seen in the emergency department for your diverticulitis. Please return for your surgery in the morning. Continue taking your antibiotics as prescribed. Return earlier if you have any new or worsening symptoms or other concerns.
--- NOTE | 2022-07-03 00:11 | XRAY Report ---
PROCEDURE: Chest 1 View X-Ray INDICATIONS: Chest Pain TECHNIQUE: One view of the chest was acquired. COMPARISON: Chest x-ray 09/12/2021. FINDINGS: Surgical changes and devices: None. Lungs and pleura: No pleural effusions or pneumothorax. Lungs are clear. Mediastinum: Mediastinal contours appear normal. Heart size is normal. Bones and chest wall: No suspicious bony lesions. Overlying soft tissues appear unremarkable. IMPRESSION: 1. No acute cardiopulmonary disease. Reviewed by: Sae Louis MD on 07/03/2022 12:09 AM PDT Approved by: Sae Louis MD on 07/03/2022 12:09 AM PDT Station ID: [id number]
[2022-07-03 00:32] VITALS: BP 149/69
== END 2022-07-03 01:14 | disposition home or self-care (01) ==
LOC: ED 23:15
DX: K57.92 Diverticulitis of intestine, part unspecified, without perforation or abscess without bleeding (principal); F17.200 Nicotine dependence, unspecified, uncomplicated; Z86.718 Personal history of other venous thrombosis and embolism; Z86.711 Personal history of pulmonary embolism; Z79.01 Long term (current) use of anticoagulants
CPT/HCPCS: 36415; 80053; 83690; 84484; 85025; 93005; 96374; 99284

== ENCOUNTER 2022-07-03 07:10 | Inpatient (IN) | payer MEDICARE ==
--- NOTE | 2022-06-27 14:52 | CONSULTATION NOTE ---
Consultation Report: Anesthesia consult for 66yo F, recurrent abdominal pain r/t diverticulos/itis and abnormal CT findings presenting for colonoscopy and colon resection by laparoscopic approach. 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 PSH includes appy, dion, hyster,colonoscopies, and inguinal hernia. Pt states she had recall during multiple surgeries including the appy and dion. Explained that recall is rare in [place] surgery but that recall during colonoscopies is very common. Explained meds and inhalation gas that will be used and their role in minimizing memory formation. Patient takes Xerelto for PE, DVT hx. Informed her that she will need to stop the medication but please contact your surgeon for recommendation. 2014 Echo showed EF of 70% and no evidence of pulmonary artery narrowing or htn. Pt with FROM at neck, MP2, intact teeth with nothing loose but decay noted. ERAS explained to patient, NPO status, pre-op hydration drink, and non opioid meds explained. Patient did not have further questions at this time.
[2022-07-03] MEDS ORDERED: GABAPENTIN 400 MG CAPSULE ONE (07:26)
[2022-07-03] MEDS ORDERED: CELECOXIB 100 MG CAPSULE PO ONE (07:27)
[2022-07-03] MEDS ORDERED: ACETAMINOPHEN 1,000 MG/100 ML 1,000 MG/100 ML BAG IV ONE ×2 (07:27→14:43)
[2022-07-03] MEDS ORDERED: CEFOTETAN DISODIUM 2 GM in SODIUM CHLORIDE 0.9% MINIBAG 100 ML IV ONE (08:00)
[2022-07-03] MEDS ORDERED: LACTATED RINGERS 1,000 ML IV ONE ×2 (08:09→14:45)
[2022-07-03] MEDS ORDERED: MORPHINE 2 MG/ML CARPUJECT IVP PRN (08:13)
[2022-07-03] MEDS ORDERED: ePHEDrine 50 MG/ML VIAL IVP PRN (08:13)
[2022-07-03] MEDS ORDERED: ONDANSETRON 4 MG/2 ML VIAL IVP PRN (08:13)
[2022-07-03] MEDS ORDERED: METOCLOPRAMIDE 10 MG/2 ML VIAL IVP PRN (08:13)
[2022-07-03] MEDS ORDERED: fentaNYL 100 MCG/2 ML VIAL IVP PRN (08:13)
[2022-07-03] MEDS ORDERED: HYDROmorphone 0.5 MG/0.5 ML SYRINGE IVP PRN (08:13)
[2022-07-03] MEDS ORDERED: NALOXONE 0.4 MG/ML VIAL IVP PRN (08:13)
[2022-07-03] MEDS ORDERED: ATROPINE ABBOJECT 1 MG/10 ML SYRINGE IVP PRN (08:13)
--- NOTE | 2022-07-03 08:13 | ANESTHESIA ---
Pre-Anesthesia VS, & Labs - Diagnosis diverticulitis - Procedure colonoscopy, L hemicolectomy, pos lap low anterior resection Vital Signs: Temp Pulse Resp BP Pulse Ox O2 Flow Rate 36.0 C L 96 18 143/91 H 97 0 07/03/22 07:45 07/03/22 07:45 07/03/22 07:45 07/03/22 07:45 07/03/22 07:45 07/03/22 07:45 Height: 5 ft 5 in Weight (kg): 69 kg Body Mass Index: 25.3 BMI Classification: Overweight - NPO >8 hours - Is Patient ?: No - Lab Results Current Lab Results: Laboratory Tests 07/03/22 08:03: POC Whole Bld Glucose 132 H Home Medications and Allergies Active Medications Cefotetan Disodium 2 gm/ (Sodium Chloride) 100 mls @ 200 mls/hr IV ONCE ONE Stop: 07/03/22 08:29 Rivaroxaban [Xarelto] 20 mg PO DAILY 01/15/19 RX: Ezetimibe [Zetia] 10 mg PO DAILY 09/12/21 Allergies/Adverse Reactions: Allergies Allergy/AdvReac Type Severity Reaction Status Date / Time hormones AdvReac Severe Unknown Uncoded 07/02/22 23:21 Anes History & Medical History - Anesthetic History Anesthesia Complications: reports: No previous complications Family history of Anesthesia Complications: Denies Family history of Malignant Hyperthermia: Denies - Medical History Cardiovascular: reports: Deep vein thrombosis, Pulmonary embolism, Other Pulmonary: reports: Other Gastrointestinal: reports: Colon polyps, Chronic diarrhea, Diverticulitis Urinary: reports: Chronic bladder infection Neuro: reports: Seizure disorder Musculoskeletal: reports: None Endocrine/Autoimmune: reports: None Blood Disorders: reports: None Skin: reports: None Smoking Status: Current every day smoker Psychosocial: reports: Anxiety - Surgical History General: reports: Cholecystectomy, Appendectomy, Colonoscopy, EGD Eyes Ears Nose Throat (EENT): reports: Tonsil/Adenoidectomy Cardiothoracic: reports: Cardiac catheterization Gynecologic: reports: Hysterectomy, Other Exam General: Alert, Oriented x3, Cooperative Dental: WNL Mouth Opening: Greater than 4 Fingerbreadths Neck Mobility: Normal Mallampati classification: I Thyromental Distance: 4-6 cm Respiratory: Lungs clear Cardiovascular: Regular rate Plan Anesthesia Type: General, Transverse Abdominis Plane (TAP) Block Regional Block: Per Surgeon's request for Post Op pain control Consent for Procedure(s) Verified and Reviewed: Yes Code Status: Attempt Resuscitation ASA classification: 2-Mild systemic disease Is this case an emergency?: No
[2022-07-03] MEDS ORDERED: LIDOCAINE-PF 2% 10 ML AMP SUBQ ONE (08:22)
[2022-07-03] MEDS ORDERED: PROPOFOL 200 MG/20 ML VIAL IVP ONE ×2 (08:22→10:46)
[2022-07-03] MEDS ORDERED: ePHEDrine 50 MG/ML VIAL IVP ONE (08:24)
[2022-07-03] MEDS ORDERED: PHENYLEPHRINE 10 MG/ML VIAL ONE (08:24)
[2022-07-03] MEDS ORDERED: ROCURONIUM 50 MG/5 ML VIAL ONE ×2 (08:24→10:46)
[2022-07-03] MEDS ORDERED: ONDANSETRON 4 MG/2 ML VIAL ONE (08:24)
[2022-07-03] MEDS ORDERED: fentaNYL 100 MCG/2 ML VIAL ONE (08:25)
[2022-07-03] MEDS ORDERED: MIDAZOLAM 2 MG/2 ML VIAL ONE (08:25)
[2022-07-03] MEDS ORDERED: LACTATED RINGERS 1,000 ML IV SCH (09:00)
[2022-07-03] MEDS ORDERED: BUPIVACAINE 0.5% PF 30 ML VIAL ONE (10:12)
[2022-07-03] MEDS ORDERED: HYDROmorphone 1 MG/ML CARPUJECT ONE (10:16)
[2022-07-03] MEDS ORDERED: ROPIVACAINE 0.5% PF 20 ML VIAL ONE ×2 (10:46)
[2022-07-03] MEDS ORDERED: SODIUM CHLORIDE 0.9% 10 ML VIAL IVP ONE (10:46)
[2022-07-03] MEDS ORDERED: BUPIVACAINE 0.5% PF 30 ML VIAL INFIL ONE ×2 (10:50)
[2022-07-03] MEDS ORDERED: CEFOTETAN DISODIUM 1 GM VIAL ONE (12:01)
--- NOTE | 2022-07-03 14:18 | OPERATIVE REPORT ---
Operative Report - General Admit Date: 07/03/22 Planned Procedure: Colonoscopy followed by laparoscopic mobilization of the splenic flexure followed by laparoscopic left hemicolectomy Pre-Op Diagnosis: Multiply recurrent diverticulitis Procedure Performed: Colonoscopy (reported separately) followed by laparoscopic mobilization of splenic flexure and extended left hemicolectomy with colo-colonic anastomosis Post Op Diagnosis: Same - Procedure Note Primary Surgeon: Johnson Piper MD Secondary Surgeon: Eileen Man MD Anesthesia Provider: Joselin Belle CRNA Anesthesia Technique: General ET tube, Local (8 mL of 1/2% marcaine (due to the local anesthesia required for tap block)) Pathology: distal transverse colon all the way down to the distal sigmoid colon IV Fluids (mL): 1,000 Estimated Blood Loss (mL): 50 Indications: As above. Findings: Pancolonic diverticulosis but more significant on the left Complications: None. - Other Other Information/Narrative: After verbal and written informed consent was obtained detailing the operation, the alternatives to the operation including no operation, risks of infection, bleeding requiring transfusion with its risks, nerve injury, and and after I met with the patient confirming the surgery, the patient was brought to the operative suite and placed supine on the operating table. Great care was taken to avoid pressure points to prevent pressure necrosis or nerve injury. Monitoring devices were applied along with TEDs and pneumatic compressive stockings (to prevent DVT). The patient received preoperative antibiotics for surgical prophylaxis. Joselin Belle CRNA sedated and anesthetized the patient for the entire procedure. The patient was then placed in modified lithotomy position taking care to pad all extremities to make sure that there are no pressure points. A "time in" then confirmed that the patient was identified with 3 identifiers (name, date, and medical record number), the history and physical was in the chart, the signed consent confirming the procedure was in the chart, the patient was in the correct position, the aforementioned prophylactic measures were in place were given, we had the correct personnel and equipment to complete the procedure and that anesthesia, and the surgical team was given an opportunity to express any concerns. With the agreement of everyone in the room, we proceeded with the operation. The patient first had a colonoscopy which showed pancolonic diverticulosis and was complete all the way to the cecum. The prep itself did not preclude visualization of any large lesions.Once I was assured that we were not dealing with anything other than recurrent diverticular disease the scope was removed, a separate report generated, and the patient was prepared for surgery. The patient was prepped and draped in usual sterile manner. A 5 cm midline infraumbilical incision was made and dissection to the linea alba was completed using Bovie electrocautery. The linea alba was incised as well as the peritoneum gaining entry into the abdomen. In this location, a SILS port was placed and the abdominal cavity was insufflated with carbon dioxide to a steady-state pressure of 15 mmHg. Examination of the abdomen performed with a 10 mm 30 degree laparoscope showed a markedly redundant colon, normal-appearing spleen and liver, normal-appearing stomach, what appeared to be the left ovary adherent to the anterior abdominal wall in the pelvis. There was no indication of acute inflammation in the colon. An additional 5 mm port was placed in the right upper quadrant under direct visualization of the 30 degree laparoscope without incident. The patient was then placed in reverse Trendelenburg and rotated to the right to help with visualization. The colon was redundant enough that dissection from the left lateral wall along the white line of Toldt was performed with some of the colon pulled through the SILS port or laparoscopically with a lateral to medial laparoscopic dissection with alternating Bovie electrocautery or Ligasure. The splenocolonic attachments were taken in a similar fashion and the transverse colon was dissected free from the ometum in a similar fashion. Notably there was significant diverticulosis throughout the left side of the colon but no one part was worse than any other part on the LEFT. In other words there was no ONE bad area. The most difficult portion of the dissection was at the splenic flexure proper but this was eventually taken down with a combination of techniques including blunt dissection as well as thermal energy. With the colon freed, the proximal transection point was selected that was just proximal to an area of de serosalization that occured with retraction with a Tati. A 75 mm FARIDA stapler was fired across the mid-distal transverse colon (distal to the middle colic and proximal to the "watershed area"). The mesentary of the LEFT colon was then taken down to the peritoneal reflection using serial application of the Ligasure. Once the taenia were seen to "splay out" the serosa was freed using application of Bovie electrocuatery and a Contour stapler was placed scross the distal colon and fired. The specimen was then delivered from the operative field and sent to pathology in formalin for evaluation. At this point Dr. Man serially dialated her anus and rectum with water soluble lubricant and anorectal dilators up to 33 mm. I applied a automatic pursestring appliance on the proximal colon approximately 1 inch above the staple and cut off the distal portion of the colon due to concerns I had for ischemia. I sutured it with a 3-0 Prolene on a Sameer needle but it snapped upon tying it so I removed the pursestring appliance and created a "pursestring" suture with a running 3-0 Prolene suture. Through the open end of the colon I placed the anvil of a 31 mm EEA stapler and secured the pursestring suture containing the mucosa about the post. Dr. Man then directed the EEA stapler transanally, guided by my directions, just proximal and a bit left of the Contour staple line and brought out the spike. I did not have her push the stapler further due to concerns I had of causing a perforation. As a result there may be a small pouch but this is unlikely to be clinically relevant. The anvil was then placed over the spike and secured taking care to ensure that there was no twist in the colon. The stapler was then screwed down tight until the "green line" was visualized. Three minutes were allowed to elapse for hemostasis. During that time I applied 3-0 Vicryl sutures at the anterior and right and left portion of the anastamosis thus butressing the anastamosis. The stapler was removed and after filling the abdomen with warm saline air was injected in the patient's rectum with a proctoscope to check to ensure that the anastamosis was air tight, which it was. The abdomen was then irrigated with 2 liters warm sterile saline. The SILS port and the 5 mm port were removed and I injected the two sites with 0.5% marcaine. The fascia at the SILS port sight was approximated with 2 0-PDS sutures starting superiorly and inferiorly and running to the middle taking care to bury the knot. The subcutaneous tissues were irrigated and 3-0 Vicryl was used to close the subcutaneous space. The skin at each port site was approximated using a subcuticular 4-0 Monocryl. The skin was further secured with the aplication of Dermabond. At this point a "timeout" was performed that confirmed that all counts were correct, the procedu re that was performed, the blood loss, the IV fluids administered, the patient's condition and any concerns of the operating team had. A TAP block was applied but I was not present for this. Having tolerated the procedure well, the patient was extubated and taken to recovery room in good and stable condition. The plan is for adherence to the ERAS protocol and discharge when bowel function has returned. CPT 80264 (laparoscopic colon resection with anastamosis) CPT 52770 (laparoscopic takedown splenic flexure) This document was created in part using voice recognition technology. Because o f the inherent limitations of the system, occasional same sounding word substitutions and grammatical errors do occur and persist despite proofreading. Please read this document for context.
[2022-07-03] MEDS: LACTATED RINGERS 1,000 ML IV SCH (15:59)
--- NOTE | 2022-07-03 16:21 | ANESTHESIA POST OP EVALUATION ---
Anesthesia Post Eval - Post Anesthesia Eval Vitals: Last Vital Signs Temp 37.3 C 07/03/22 15:30 Pulse 76 07/03/22 15:53 Resp 18 07/03/22 15:53 BP 126/78 07/03/22 15:53 Pulse Ox 98 07/03/22 15:53 O2 Flow Rate 0 07/03/22 07:45 CV Function Including HR & BP: Stable Pain Control: Satisfactory Nausea & Vomiting: Negative Mental Status: Baseline Respiratory Status: Airway Patent Hydration Status: Satisfactory Anesthesia Complications: None
--- NOTE | 2022-07-03 16:35 | PHARMACY PROGRESS NOTE ---
- Best Possible Medication History Admit Date and Time: 07/03/22 0710 Processed by: Pharmacy Medication History completed: Yes Patient Interview: Completed Secondary Source(s): Pharmacy records As the person ultimately responsible for medication therapy, providers are able to order a medication from an existing home medication list in [facility] via the "Reconcile Routine" prior to Confirmation of that medication by senior administrative support. Such practice is discouraged except when the physician, in their clinical judgment, deems that a medical need exists for a medication without regard to previous use.
[2022-07-03] MEDS: SODIUM CHLORIDE FLUSH 0.9% 10 ML SYRINGE IVP SCH (16:47)
[2022-07-03] MEDS: KETOROLAC 15 MG/ML VIAL IVP PRN (19:47)
[2022-07-04] MEDS: KETOROLAC 15 MG/ML VIAL IVP PRN ×4 (01:44→22:49)
[2022-07-04] MEDS: SODIUM CHLORIDE FLUSH 0.9% 10 ML SYRINGE IVP SCH ×3 (01:45→17:45)
[2022-07-04 06:10] LABS: BASOPHILS % (AUTO) 0.1 %; HCT - HEMATOCRIT 36.4 % (37.0-47.0); HGB - HEMOGLOBIN 11.7 g/dL (12.0-16.0); LYMPHOCYTES % (AUTO) 9.4 %; MEAN CORPUSCULAR HGB CONC 32.1 g/dL (32.0-36.0); MEAN CORPUSCULAR VOLUME 90.3 fL (81.0-99.0); MEAN PLATELET VOLUME 10.1 fL (7.9-10.8); MONOCYTES % (AUTO) 9.5 %; NEUTROPHILS # (AUTO) 8.7 10^3/uL (1.5-6.6); NEUTROPHILS % (AUTO) 80.7 %; PLT - PLATELET COUNT 237 10^3/uL (130-450); RED BLOOD COUNT 4.03 10^6/uL (4.20-5.40); RED CELL DISTRIBUTION WIDTH 13.3 % (12.0-15.0); WHITE BLOOD COUNT 10.8 x10^3/uL (4.8-10.8)
[2022-07-04] MEDS: PANTOPRAZOLE 40 MG VIAL IVP SCH (06:17)
[2022-07-04] MEDS: SODIUM CHLORIDE FLUSH 0.9% 10 ML SYRINGE IVP PRN (06:17)
[2022-07-04 06:23] LABS: ALBUMIN 3.3 g/dL (3.2-5.5); ALBUMIN/GLOBULIN RATIO 1.2 (1.0-2.2); BILIRUBIN,TOTAL 0.8 mg/dL (0.2-1.0); CALCIUM 8.3 mg/dL (8.5-10.3); CREATININE 0.8 mg/dL (0.4-1.0); POTASSIUM 3.8 mmol/L (3.5-5.0); TOTAL PROTEIN 6.1 g/dL (6.7-8.2)
[2022-07-04] MEDS: ENOXAPARIN 40 MG/0.4 ML SYRINGE SUBQ SCH (10:09)
[2022-07-04] MEDS: LACTATED RINGERS 1,000 ML IV SCH (11:59)
--- NOTE | 2022-07-04 12:03 | PROVIDER PROGRESS NOTE ---
Subjective - General Admit Date: 07/03/22 Procedure Date: 07/03/22 Post Op Days: 1 Procedure Performed: Laparoscopic extended LEFT hemicolectomy with laparoscopic mobilization of - Review of Systems Wound/Incisions: positive: Healing well, No drainage. negative: Erythema Drain Type: None. General: positive: No symptoms HEENT: positive: No symptoms Pulmonary: positive: No symptoms Cardiovascular: positive: Chest pain Gastrointestinal: positive: Abdominal pain (Consistent with operation performed.), Diarrhea (Bloody and consistent with operation performed.) Genitourinary: positive: No symptoms Musculoskeletal: positive: No symptoms Skin: positive: No symptoms Psychiatric: positive: No symptoms Objective - Patient Data Reviewed Vital Signs: Yes Vital Signs: Vital Signs x48h Temp Pulse Resp BP Pulse Ox 07/04/22 08:00 37.0 C 89 16 145/92 H 98 07/04/22 05:05 37.1 C 83 16 145/83 H 94 Weight: Weight 07/02/22 07/03/22 07/04/22 23:59 23:59 23:59 Weight (kg) 68.7 kg Intake & Output: Intake and Output Totals x24h 07/02/22 07/03/22 07/04/22 23:59 23:59 23:59 Intake Total 1130 1300 Output Total 520 600 Balance 610 700 - Lab Results Lab Results: 07/04/22 05:56 07/04/22 05:56 Other Lab Results: Lab Results x24hrs 07/04/22 07/04/22 07/03/22 Range/Units 05:56 05:56 16:44 WBC 10.8 (4.8-10.8) x10^3/uL RBC 4.03 L (4.20-5.40) 10^6/uL Hgb 11.7 L (12.0-16.0) g/dL Hct 36.4 L (37.0-47.0) % MCV 90.3 (81.0-99.0) fL MCH 29.0 (27.0-31.0) pg MCHC 32.1 (32.0-36.0) g/dL RDW 13.3 (12.0-15.0) % Plt Count 237 (130-450) 10^3/uL MPV 10.1 (7.9-10.8) fL Neut # (Auto) 8.7 H (1.5-6.6) 10^3/uL Lymph # (Auto) 1.0 L (1.5-3.5) 10^3/uL [place] # (Auto) 1.0 (0.0-1.0) 10^3/uL Eos # (Auto) 0.0 (0.0-0.7) 10^3/uL Baso # (Auto) 0.0 (0.0-0.1) 10^3/uL Absolute Nucleated RBC 0.00 x10^3/uL Nucleated RBC % 0.0 /100WBC Sodium 140 (135-145) mmol/L Potassium 3.8 (3.5-5.0) mmol/L Chloride 108 (101-111) mmol/L Carbon Dioxide 24 (21-32) mmol/L Anion Gap 8.0 (6-13) BUN 17 (6-20) mg/dL Creatinine 0.8 (0.4-1.0) mg/dL Estimated GFR (MDRD) 72 L (>89) Glucose 150 H (70-100) mg/dL POC Whole Bld Glucose 171 H (70 - 100) mg/dL Calcium 8.3 L (8.5-10.3) mg/dL Total Bilirubin 0.8 (0.2-1.0) mg/dL AST 25 (10-42) IU/L ALT 25 (10-60) IU/L Alkaline Phosphatase 45 (42-121) IU/L Total Protein 6.1 L (6.7-8.2) g/dL Albumin 3.3 (3.2-5.5) g/dL Globulin 2.8 (2.1-4.2) g/dL Albumin/Globulin Ratio 1.2 (1.0-2.2) - Current Medications Current Medications: Current Medications Generic Name Dose Route Start Last Admin Trade Name Freq PRN Reason Stop Dose Admin Enoxaparin Sodium 40 mg 07/04/22 09:00 07/04/22 10:09 Enoxaparin 40 Mg/0.4 Ml Syringe SUBQ 40 mg DAILY MAGI Administration Lactated Ringer's 1,000 mls @ 50 mls/hr 07/03/22 15:00 07/04/22 11:59 Lr IV 50 mls/hr .Q20H MAGI Administration Ketorolac Tromethamine 15 mg 07/03/22 14:43 07/04/22 09:36 Ketorolac 15 Mg/Ml Vial IVP 07/08/22 14:42 15 mg Q6HR PRN Administration Severe Pain (Level 7-10) Pantoprazole Sodium 40 mg 07/04/22 07:00 07/04/22 06:17 Pantoprazole 40 Mg Vial IVP 40 mg QDAC MAGI Administration Sodium Chloride 10 ml 07/03/22 17:00 07/04/22 09:36 Sodium Chloride Flush 0.9% 10 Ml Syringe IVP 10 ml 0100,[id number],1700 MAGI Administration Sodium Chloride 10 ml 07/03/22 14:43 07/04/22 06:17 Sodium Chloride Flush 0.9% 10 Ml Syringe IVP 10 ml PRN PRN Administration NEEDED PER PROVIDER ORDERS - Physical Exam Wound/Incisions: positive: Healing well, No drainage General Appearance: positive: No acute distress Eyes Bilateral: positive: No lid inflammation, Conjunctivae nml, No scleral icterus ENT: positive: No signs of dehydration Neck: positive: Trachea midline Respiratory: positive: Chest non-tender, No respiratory distress, Breath sounds nml Cardiovascular: positive: Regular rate & rhythm, No murmur, No gallop Abdomen: positive: Non-tender, Nml bowel sounds Skin: positive: Color nml, No rash, Warm, Dry, Other (Good color.) Extremities: positive: Non-tender, Nml appearance. negative: Calf tenderness Neurologic/Psychiatric: positive: Oriented x3, Motor nml, Sensation nml, Mood/affect nml ABX Reporting Has patient been on IV antibiotics over the past 48 hours?: Yes Impression/Plan - Problem List Problem List: Day 1 s/p laparoscopic extended LEFT hemicolectomy with laparoscopic mobilization of splenic flexure to treat recurrent diverticulitis 1) FEN Continue ERAS protocol. Encourage as much ambulation as possible. 2) Pain Controlled with current regimen. 3) Heme Blood per rectum is expected considering the anastomosis and the mobilization. I explained to the patient that I would transfuse her multiple units prior to any operation but that I expect the bleeding would stop spontaneously. I will follow to make sure that ongoing blood loss is recognized and treated appropriately. Her vitals have not been affected by this. 4) ERAS Continue following protocol. 5) Pathology Pending.
[2022-07-04] MEDS: ONDANSETRON 4 MG/2 ML VIAL IVP PRN ×2 (13:26→18:59)
[2022-07-04] MEDS: HYDROmorphone 0.5 MG/0.5 ML SYRINGE IVP PRN ×4 (15:57→22:49)
[2022-07-04] MEDS: METOCLOPRAMIDE 10 MG/2 ML VIAL IVP PRN ×3 (15:59→22:48)
[2022-07-05] MEDS: HYDROmorphone 0.5 MG/0.5 ML SYRINGE IVP PRN ×7 (01:14→22:28)
[2022-07-05] MEDS: SODIUM CHLORIDE FLUSH 0.9% 10 ML SYRINGE IVP SCH ×3 (01:39→19:08)
[2022-07-05] MEDS: ONDANSETRON 4 MG/2 ML VIAL IVP PRN ×2 (03:32→11:55)
[2022-07-05 04:29] LABS: BASOPHILS % (AUTO) 0.1 %; EOSINOPHILS % (AUTO) 0.2 %; HCT - HEMATOCRIT 33.4 % (37.0-47.0); LYMPHOCYTES # (AUTO) 0.9 10^3/uL (1.5-3.5); LYMPHOCYTES % (AUTO) 7.5 %; MEAN CORPUSCULAR HEMOGLOBIN 30.1 pg (27.0-31.0); MEAN CORPUSCULAR HGB CONC 32.9 g/dL (32.0-36.0); MEAN CORPUSCULAR VOLUME 91.5 fL (81.0-99.0); MEAN PLATELET VOLUME 10.1 fL (7.9-10.8); MONOCYTES # (AUTO) 0.9 10^3/uL (0.0-1.0); MONOCYTES % (AUTO) 7.5 %; NEUTROPHILS # (AUTO) 10.3 10^3/uL (1.5-6.6); NEUTROPHILS % (AUTO) 84.4 %; PLT - PLATELET COUNT 209 10^3/uL (130-450); RED BLOOD COUNT 3.65 10^6/uL (4.20-5.40); RED CELL DISTRIBUTION WIDTH 13.3 % (12.0-15.0); WHITE BLOOD COUNT 12.2 x10^3/uL (4.8-10.8)
[2022-07-05 04:40] LABS: ALBUMIN 3.2 g/dL (3.2-5.5); BILIRUBIN,TOTAL 0.6 mg/dL (0.2-1.0); CALCIUM 8.1 mg/dL (8.5-10.3); CREATININE 0.7 mg/dL (0.4-1.0); TOTAL PROTEIN 6.4 g/dL (6.7-8.2)
[2022-07-05] MEDS: PANTOPRAZOLE 40 MG VIAL IVP SCH (06:25)
[2022-07-05] MEDS: KETOROLAC 15 MG/ML VIAL IVP PRN ×2 (08:17→14:22)
[2022-07-05] MEDS: METOCLOPRAMIDE 10 MG/2 ML VIAL IVP PRN ×2 (08:17→14:22)
[2022-07-05] MEDS: ENOXAPARIN 40 MG/0.4 ML SYRINGE SUBQ SCH (08:17)
[2022-07-05] MEDS: LACTATED RINGERS 1,000 ML IV SCH (08:24)
[2022-07-05] MEDS: SODIUM CHLORIDE FLUSH 0.9% 10 ML SYRINGE IVP PRN ×2 (11:56→14:23)
--- NOTE | 2022-07-05 18:13 | PROVIDER PROGRESS NOTE ---
Subjective - General Admit Date: 07/03/22 Procedure Date: 07/03/22 Post Op Days: 2 Procedure Performed: Laparoscopic extended LEFT hemicolectomy with laparoscopic mobilization of - Review of Systems Wound/Incisions: positive: Healing well, No drainage Drain Type: None. General: positive: No symptoms HEENT: positive: No symptoms Pulmonary: positive: No symptoms Cardiovascular: positive: Chest pain Gastrointestinal: positive: Nausea, Vomiting, Abdominal pain (Consistent with operation performed.) Genitourinary: positive: No symptoms Musculoskeletal: positive: No symptoms Skin: positive: No symptoms Psychiatric: positive: No symptoms Objective - Patient Data Reviewed Vital Signs: Yes Vital Signs: Vital Signs x48h Temp Pulse Resp BP Pulse Ox 07/05/22 15:55 36.5 C 85 20 152/91 H 96 Weight: Weight 07/03/22 07/04/22 07/05/22 23:59 23:59 23:59 Weight (kg) 68.7 kg Intake & Output: Intake and Output Totals x24h 07/03/22 07/04/22 07/05/22 23:59 23:59 23:59 Intake Total 1130 1500 1000 Output Total 520 850 0 Balance 113 485 0003 - Lab Results Lab Results: 07/05/22 04:16 07/05/22 04:16 Other Lab Results: Lab Results x24hrs 07/05/22 07/05/22 Range/Units 04:16 04:16 WBC 12.2 H (4.8-10.8) x10^3/uL RBC 3.65 L (4.20-5.40) 10^6/uL Hgb 11.0 L (12.0-16.0) g/dL Hct 33.4 L (37.0-47.0) % MCV 91.5 (81.0-99.0) fL MCH 30.1 (27.0-31.0) pg MCHC 32.9 (32.0-36.0) g/dL RDW 13.3 (12.0-15.0) % Plt Count 209 (130-450) 10^3/uL MPV 10.1 (7.9-10.8) fL Neut # (Auto) 10.3 H (1.5-6.6) 10^3/uL Lymph # (Auto) 0.9 L (1.5-3.5) 10^3/uL [place] # (Auto) 0.9 (0.0-1.0) 10^3/uL Eos # (Auto) 0.0 (0.0-0.7) 10^3/uL Baso # (Auto) 0.0 (0.0-0.1) 10^3/uL Absolute Nucleated RBC 0.00 x10^3/uL Nucleated RBC % 0.0 /100WBC Sodium 138 (135-145) mmol/L Potassium 3.0 L (3.5-5.0) mmol/L Chloride 105 (101-111) mmol/L Carbon Dioxide 24 (21-32) mmol/L Anion Gap 9.0 (6-13) BUN 13 (6-20) mg/dL Creatinine 0.7 (0.4-1.0) mg/dL Estimated GFR (MDRD) 83 L (>89) Glucose 152 H (70-100) mg/dL Calcium 8.1 L (8.5-10.3) mg/dL Total Bilirubin 0.6 (0.2-1.0) mg/dL AST 23 (10-42) IU/L ALT 22 (10-60) IU/L Alkaline Phosphatase 47 (42-121) IU/L Total Protein 6.4 L (6.7-8.2) g/dL Albumin 3.2 (3.2-5.5) g/dL Globulin 3.2 (2.1-4.2) g/dL Albumin/Globulin Ratio 1.0 (1.0-2.2) - Current Medications Current Medications: Current Medications Generic Name Dose Route Start Last Admin Trade Name Freq PRN Reason Stop Dose Admin Enoxaparin Sodium 40 mg 07/04/22 09:00 07/05/22 08:17 Enoxaparin 40 Mg/0.4 Ml Syringe SUBQ 40 mg DAILY MAGI Administration Hydromorphone HCl 0.5 mg 07/04/22 15:13 07/05/22 16:02 Hydromorphone 0.5 Mg/0.5 Ml Syringe IVP 0.5 mg Q2H PRN Administration Severe Pain (Level 7-10) Lactated Ringer's 1,000 mls @ 50 mls/hr 07/03/22 15:00 07/05/22 08:24 Lr IV 50 mls/hr .Q20H MAGI Administration Ketorolac Tromethamine 15 mg 07/03/22 14:43 07/05/22 14:22 Ketorolac 15 Mg/Ml Vial IVP 07/08/22 14:42 15 mg Q6HR PRN Administration Severe Pain (Level 7-10) Metoclopramide HCl 5 mg 07/04/22 15:13 07/05/22 14:22 Metoclopramide 10 Mg/2 Ml Vial IVP 5 mg Q6HR PRN Administration Nausea / Vomiting Ondansetron HCl 4 mg 07/03/22 19:03 07/05/22 11:55 Ondansetron 4 Mg/2 Ml Vial IVP 4 mg Q4HR PRN Administration Nausea / Vomiting Pantoprazole Sodium 40 mg 07/04/22 07:00 07/05/22 06:25 Pantoprazole 40 Mg Vial IVP 40 mg QDAC MAGI Administration Sodium Chloride 10 ml 07/03/22 17:00 07/05/22 08:18 Sodium Chloride Flush 0.9% 10 Ml Syringe IVP 10 ml 0100,0900,1700 MAGI Administration Sodium Chloride 10 ml 07/03/22 14:43 07/05/22 14:23 Sodium Chloride Flush 0.9% 10 Ml Syringe IVP 20 ml PRN PRN Administration NEEDED PER PROVIDER ORDERS - Physical Exam Wound/Incisions: positive: Healing well General Appearance: positive: No acute distress Eyes Bilateral: positive: No lid inflammation, Conjunctivae nml, No scleral icterus ENT: positive: Dry mucous membranes Respiratory: positive: Chest non-tender, No respiratory distress, Breath sounds nml Cardiovascular: positive: Regular rate & rhythm Abdomen: positive: Nml bowel sounds, Other (Incisional tenderness.) Extremities: positive: Non-tender, Nml appearance Neurologic/Psychiatric: positive: Oriented x3, Motor nml, Sensation nml, Mood/affect nml ABX Reporting Has patient been on IV antibiotics over the past 48 hours?: No Impression/Plan - Problem List Problem List: Day 2 s/p laparoscopic extended LEFT hemicolectomy with laparoscopic mobilization of splenic flexure to treat recurrent diverticulitis 1) FEN Continue ERAS protocol. Encourage as much ambulation as possible. Will supplement potassium. 2) Pain Controlled with current regimen. 3) Heme Blood per rectum is expected considering the anastomosis and the mobilization. I explained to the patient that I would transfuse her multiple units prior to any operation but that I expect the bleeding would stop spontaneously. I will follow to make sure that ongoing blood loss is recognized and treated appropriately. Her vitals have not been affected by this. 4) ERAS Continue following protocol. 5) Pathology Pending. 6) Ileus Unfortunate but time and support should resolve. If antiemetics do not work may require an NG tube.
[2022-07-05] MEDS: POTASSIUM CHLOR 10 MEQ/100 ML 10 MEQ/100 ML BAG IV SCH ×4 (19:07→23:42)
[2022-07-06] MEDS: SODIUM CHLORIDE FLUSH 0.9% 10 ML SYRINGE IVP SCH ×3 (01:00→16:20)
[2022-07-06] MEDS: POTASSIUM CHLOR 10 MEQ/100 ML 10 MEQ/100 ML BAG IV SCH ×4 (01:47→09:03)
[2022-07-06] MEDS: HYDROmorphone 0.5 MG/0.5 ML SYRINGE IVP PRN ×5 (01:54→22:58)
[2022-07-06] MEDS: METOCLOPRAMIDE 10 MG/2 ML VIAL IVP PRN ×2 (01:54→14:44)
[2022-07-06] MEDS: LACTATED RINGERS 1,000 ML IV SCH ×2 (03:15→16:19)
[2022-07-06 05:09] LABS: ALBUMIN 3.1 g/dL (3.2-5.5); BILIRUBIN,TOTAL 1.1 mg/dL (0.2-1.0); CALCIUM 8.1 mg/dL (8.5-10.3); CREATININE 0.6 mg/dL (0.4-1.0); POTASSIUM 3.8 mmol/L (3.5-5.0); TOTAL PROTEIN 6.2 g/dL (6.7-8.2)
[2022-07-06 05:30] LABS: BASOPHILS % (AUTO) 0.2 %; EOSINOPHILS # (AUTO) 0.2 10^3/uL (0.0-0.7); EOSINOPHILS % (AUTO) 1.6 %; HGB - HEMOGLOBIN 10.4 g/dL (12.0-16.0); LYMPHOCYTES # (AUTO) 1.2 10^3/uL (1.5-3.5); LYMPHOCYTES % (AUTO) 10.1 %; MEAN CORPUSCULAR HEMOGLOBIN 29.4 pg (27.0-31.0); MEAN CORPUSCULAR HGB CONC 32.5 g/dL (32.0-36.0); MEAN CORPUSCULAR VOLUME 90.4 fL (81.0-99.0); MEAN PLATELET VOLUME 10.2 fL (7.9-10.8); MONOCYTES # (AUTO) 0.7 10^3/uL (0.0-1.0); MONOCYTES % (AUTO) 6.2 %; NEUTROPHILS # (AUTO) 9.6 10^3/uL (1.5-6.6); NEUTROPHILS % (AUTO) 81.3 %; PLT - PLATELET COUNT 217 10^3/uL (130-450); RED BLOOD COUNT 3.54 10^6/uL (4.20-5.40); RED CELL DISTRIBUTION WIDTH 12.9 % (12.0-15.0); WHITE BLOOD COUNT 11.8 x10^3/uL (4.8-10.8)
[2022-07-06] MEDS: PANTOPRAZOLE 40 MG VIAL IVP SCH (06:24)
[2022-07-06] MEDS: KETOROLAC 15 MG/ML VIAL IVP PRN ×2 (08:56→18:40)
[2022-07-06] MEDS: ONDANSETRON 4 MG/2 ML VIAL IVP PRN (08:56)
[2022-07-06] MEDS: ENOXAPARIN 40 MG/0.4 ML SYRINGE SUBQ SCH (09:04)
--- NOTE | 2022-07-06 11:15 | PROVIDER PROGRESS NOTE ---
Subjective - General Admit Date: 07/03/22 Procedure Date: 07/03/22 Post Op Days: 3 Procedure Performed: Laparoscopic extended LEFT hemicolectomy with laparoscopic mobilization of - Review of Systems Wound/Incisions: positive: Healing well Drain Type: None. General: positive: No symptoms HEENT: positive: No symptoms Pulmonary: positive: No symptoms Cardiovascular: positive: Chest pain Gastrointestinal: positive: Other (Still no bowel function.) Genitourinary: positive: No symptoms Musculoskeletal: positive: No symptoms Skin: positive: No symptoms Psychiatric: positive: No symptoms Objective - Patient Data Reviewed Vital Signs: Yes Vital Signs: Vital Signs x48h Temp Pulse Resp BP Pulse Ox 07/06/22 08:36 36.7 C 98 17 168/95 H 97 Intake & Output: Intake and Output Totals x24h 07/04/22 07/05/22 07/06/22 23:59 23:59 23:59 Intake Total 1500 1300 1342.5 Output Total 850 0 Balance 650 1300 1342.5 - Lab Results Lab Results: 07/06/22 05:20 07/06/22 01:43 Other Lab Results: Lab Results x24hrs 07/06/22 07/06/22 Range/Units 05:20 01:43 WBC 11.8 H (4.8-10.8) x10^3/uL RBC 3.54 L (4.20-5.40) 10^6/uL Hgb 10.4 L (12.0-16.0) g/dL Hct 32.0 L (37.0-47.0) % MCV 90.4 (81.0-99.0) fL MCH 29.4 (27.0-31.0) pg MCHC 32.5 (32.0-36.0) g/dL RDW 12.9 (12.0-15.0) % Plt Count 217 (130-450) 10^3/uL MPV 10.2 (7.9-10.8) fL Neut # (Auto) 9.6 H (1.5-6.6) 10^3/uL Lymph # (Auto) 1.2 L (1.5-3.5) 10^3/uL [place] # (Auto) 0.7 (0.0-1.0) 10^3/uL Eos # (Auto) 0.2 (0.0-0.7) 10^3/uL Baso # (Auto) 0.0 (0.0-0.1) 10^3/uL Absolute Nucleated RBC 0.00 x10^3/uL Nucleated RBC % 0.0 /100WBC Sodium 135 (135-145) mmol/L Potassium 3.8 (3.5-5.0) mmol/L Chloride 105 (101-111) mmol/L Carbon Dioxide 20 L (21-32) mmol/L Anion Gap 10.0 (6-13) BUN 12 (6-20) mg/dL Creatinine 0.6 (0.4-1.0) mg/dL Estimated GFR (MDRD) 100 (>89) Glucose 102 H (70-100) mg/dL Calcium 8.1 L (8.5-10.3) mg/dL Total Bilirubin 1.1 H (0.2-1.0) mg/dL AST 20 (10-42) IU/L ALT 22 (10-60) IU/L Alkaline Phosphatase 47 (42-121) IU/L Total Protein 6.2 L (6.7-8.2) g/dL Albumin 3.1 L (3.2-5.5) g/dL Globulin 3.1 (2.1-4.2) g/dL Albumin/Globulin Ratio 1.0 (1.0-2.2) - Current Medications Current Medications: Current Medications Generic Name Dose Route Start Last Admin Trade Name Freq PRN Reason Stop Dose Admin Enoxaparin Sodium 40 mg 07/04/22 09:00 07/06/22 09:04 Enoxaparin 40 Mg/0.4 Ml Syringe SUBQ 40 mg DAILY MAGI Administration Hydromorphone HCl 0.5 mg 07/04/22 15:13 07/06/22 06:45 Hydromorphone 0.5 Mg/0.5 Ml Syringe IVP 0.5 mg Q2H PRN Administration Severe Pain (Level 7-10) Lactated Ringer's 1,000 mls @ 50 mls/hr 07/03/22 15:00 07/06/22 03:15 Lr IV 50 mls/hr .Q20H MAGI Administration Ketorolac Tromethamine 15 mg 07/03/22 14:43 07/06/22 08:56 Ketorolac 15 Mg/Ml Vial IVP 03/20/23 14:42 15 mg Q6HR PRN Administration Severe Pain (Level 7-10) Metoclopramide HCl 5 mg 07/04/22 15:13 07/06/22 01:54 Metoclopramide 10 Mg/2 Ml Vial IVP 5 mg Q6HR PRN Administration Nausea / Vomiting Ondansetron HCl 4 mg 07/03/22 19:03 07/06/22 08:56 Ondansetron 4 Mg/2 Ml Vial IVP 4 mg Q4HR PRN Administration Nausea / Vomiting Pantoprazole Sodium 40 mg 07/04/22 07:00 07/06/22 06:24 Pantoprazole 40 Mg Vial IVP 40 mg QDAC MAGI Administration Sodium Chloride 10 ml 07/03/22 17:00 07/06/22 08:56 Sodium Chloride Flush 0.9% 10 Ml Syringe IVP 10 ml 0100,0900,1700 MAGI Administration Sodium Chloride 10 ml 07/03/22 14:43 07/05/22 14:23 Sodium Chloride Flush 0.9% 10 Ml Syringe IVP 20 ml PRN PRN Administration NEEDED PER PROVIDER ORDERS - Physical Exam Wound/Incisions: positive: Healing well, No drainage. negative: Erythema General Appearance: positive: No acute distress, Alert Eyes Bilateral: positive: No lid inflammation, Conjunctivae nml, No scleral icterus ENT: positive: Dry mucous membranes (Taking ice chips has no desire to eat.) Neck: positive: Trachea midline Respiratory: positive: Chest non-tender, No respiratory distress, Breath sounds nml Cardiovascular: positive: Regular rate & rhythm, No murmur Abdomen: positive: Nml bowel sounds (Excellent bowel sounds.) Skin: positive: Color nml, No rash, Warm, Dry Extremities: positive: Non-tender, Nml appearance. negative: David's sign/cords Neurologic/Psychiatric: positive: Oriented x3, Motor nml, Sensation nml, Mood/affect nml ABX Reporting Has patient been on IV antibiotics over the past 48 hours?: No Impression/Plan - Problem List Problem List: Day 3 s/p laparoscopic extended LEFT hemicolectomy with laparoscopic mobilization of splenic flexure to treat recurrent diverticulitis 1) FEN Potassium has improved. Still receiving potassium this morning. Explained what potassium does to patient. Told patient to not eat anything if she does not fell like it. Await bowel function to feed. 2) Pain Controlled with current regimen. 3) Heme Blood per rectum is expected considering the anastomosis and the mobilization. I explained to the patient that I would transfuse her multiple units prior to any operation but that I expect the bleeding would stop spontaneously. I will follow to make sure that ongoing blood loss is recognized and treated appropriately. Her vitals have not been affected by this. 4) ERAS Continue following protocol but patient appears to have a postoperative ileus. Increasing ambulation. 5) Pathology Pending. 6) Ileus Unfortunate but time and support should resolve. If antiemetics do not work may require an NG tube.
[2022-07-06] MEDS: SODIUM CHLORIDE FLUSH 0.9% 10 ML SYRINGE IVP PRN (14:45)
[2022-07-07] MEDS: KETOROLAC 15 MG/ML VIAL IVP PRN ×2 (02:21→16:58)
[2022-07-07] MEDS: SODIUM CHLORIDE FLUSH 0.9% 10 ML SYRINGE IVP SCH ×3 (02:21→16:58)
[2022-07-07] MEDS: PANTOPRAZOLE 40 MG VIAL IVP SCH (06:41)
[2022-07-07] MEDS: ENOXAPARIN 40 MG/0.4 ML SYRINGE SUBQ SCH (08:57)
[2022-07-07] MEDS: LACTATED RINGERS 1,000 ML IV SCH (12:33)
--- NOTE | 2022-07-07 13:31 | PROVIDER PROGRESS NOTE ---
Subjective - General Admit Date: 07/03/22 Procedure Date: 07/03/22 Post Op Days: 4 Procedure Performed: Laparoscopic extended LEFT hemicolectomy with laparoscopic mobilization of - Review of Systems Wound/Incisions: positive: Healing well, No drainage. negative: Erythema Drain Type: None. General: positive: No symptoms HEENT: positive: No symptoms Pulmonary: positive: No symptoms Cardiovascular: positive: Chest pain Gastrointestinal: positive: Other (Excellent bowel function.) Genitourinary: positive: No symptoms Musculoskeletal: positive: No symptoms Skin: positive: No symptoms Psychiatric: positive: No symptoms Objective - Patient Data Reviewed Vital Signs: Yes Vital Signs: Vital Signs x48h Temp Pulse Resp BP Pulse Ox 07/07/22 07:38 37.0 C 76 18 151/88 H 99 Intake & Output: Intake and Output Totals x24h 07/05/22 07/06/22 07/07/22 23:59 23:59 23:59 Intake Total 1300 2095.833 1100 Output Total 0 Balance 1300 2095.833 1100 - Lab Results Lab Results: 07/06/22 05:20 07/06/22 01:43 - Current Medications Current Medications: Current Medications Generic Name Dose Route Start Last Admin Trade Name Freq PRN Reason Stop Dose Admin Enoxaparin Sodium 40 mg 07/04/22 09:00 07/07/22 08:57 Enoxaparin 40 Mg/0.4 Ml Syringe SUBQ 40 mg DAILY MAGI Administration Hydromorphone HCl 0.5 mg 07/04/22 15:13 07/06/22 22:58 Hydromorphone 0.5 Mg/0.5 Ml Syringe IVP 0.5 mg Q2H PRN Administration Severe Pain (Level 7-10) Lactated Ringer's 1,000 mls @ 50 mls/hr 07/03/22 15:00 07/07/22 12:33 Lr IV 50 mls/hr .Q20H MAGI Administration Ketorolac Tromethamine 15 mg 07/03/22 14:43 07/07/22 02:21 Ketorolac 15 Mg/Ml Vial IVP 07/08/22 14:42 15 mg Q6HR PRN Administration Severe Pain (Level 7-10) Metoclopramide HCl 5 mg 07/04/22 15:13 07/06/22 14:44 Metoclopramide 10 Mg/2 Ml Vial IVP 5 mg Q6HR PRN Administration Nausea / Vomiting Ondansetron HCl 4 mg 07/03/22 19:03 07/06/22 08:56 Ondansetron 4 Mg/2 Ml Vial IVP 4 mg Q4HR PRN Administration Nausea / Vomiting Pantoprazole Sodium 40 mg 07/04/22 07:00 07/07/22 06:41 Pantoprazole 40 Mg Vial IVP 40 mg QDAC MAGI Administration Sodium Chloride 10 ml 07/03/22 17:00 07/07/22 12:34 Sodium Chloride Flush 0.9% 10 Ml Syringe IVP 10 ml 0100,0900,1700 MAGI Administration Sodium Chloride 10 ml 07/03/22 14:43 07/06/22 14:45 Sodium Chloride Flush 0.9% 10 Ml Syringe IVP 10 ml PRN PRN Administration NEEDED PER PROVIDER ORDERS - Physical Exam Wound/Incisions: positive: Healing well, No drainage General Appearance: positive: No acute distress (Feels fantastic. Flatus. Had shower.) Eyes Bilateral: positive: No lid inflammation, Conjunctivae nml, No scleral icterus ENT: positive: No signs of dehydration Neck: positive: Nml inspection Respiratory: positive: Chest non-tender, No respiratory distress, Breath sounds nml Cardiovascular: positive: Regular rate & rhythm, No murmur Abdomen: positive: Non-tender, Nml bowel sounds, Tenderness (Minimal.) Skin: positive: Color nml, No rash, Warm, Dry Extremities: positive: Non-tender, Nml appearance Neurologic/Psychiatric: positive: Oriented x3, Motor nml, Sensation nml, Mood/affect nml ABX Reporting Has patient been on IV antibiotics over the past 48 hours?: No Impression/Plan - Problem List Problem List: Day 4 s/p laparoscopic extended LEFT hemicolectomy with laparoscopic mobilizatio n of splenic flexure to treat recurrent diverticulitis 1) FEN Excellent bowel function - start general diet. 2) Pain Strict oral with IV only for breakthrough. 3) Heme Blood per rectum has stopped as expected. 4) ERAS Patient doing very well with her activity. I told her to make arrangements as I expect discharge home tomorrow. 5) Pathology Pending.
[2022-07-07] MEDS: HYDROmorphone 0.5 MG/0.5 ML SYRINGE IVP PRN (22:17)
[2022-07-08] MEDS: SODIUM CHLORIDE FLUSH 0.9% 10 ML SYRINGE IVP SCH ×2 (04:31→09:05)
[2022-07-08] MEDS: KETOROLAC 15 MG/ML VIAL IVP PRN ×2 (04:31→10:36)
[2022-07-08] MEDS: PANTOPRAZOLE 40 MG VIAL IVP SCH (07:02)
--- NOTE | 2022-07-08 08:55 | DISCHARGE SUMMARY ---
"Discharge Summary Admit Date: 07/03/22 Discharge Date: 07/08/22 Discharging Provider: Johnson Piper MD Primary Care Provider: Nicolette Herrera PA-C Code Status: Attempt Resuscitation Condition at Discharge: Good Discharge Disposition: 01 Home, Self Care - DIAGNOSES Admission Diagnoses: Recurrent symptomatic diverticulitis - HPI History of Present Illness: Refer to H&P but recurrent symptomatic diverticulitis. - CONSULTS | PROCEDURES Consultations: None. Procedures: Colonoscopy followed by laparoscopic extended LEFT hemicolectomy with laparoscopic splenic flexure mobilization - HOSPITAL COURSE Hospital Course: Uncompliocated - ERAS protocol used. - ALLERGIES Allergies/Adverse Reactions: Allergies Allergy/AdvReac Type Severity Reaction Status Date / Time ethinyl estradiol AdvReac Severe DVT Verified 07/03/22 08:45 norethindrone AdvReac Severe DVT Verified 07/03/22 08:45 - MEDICATIONS Home Medications: Ambulatory Orders Medication Instructions Recorded Confirmed Rivaroxaban [Xarelto] 20 mg PO DAILY 01/15/19 06/27/22 Ezetimibe [Zetia] 10 mg PO DAILY 09/12/21 06/27/22 - PHYSICAL EXAM AT DISCHARGE General Appearance: positive: No acute distress Eyes Bilateral: positive: No lid inflammation, Conjunctivae nml, No scleral icterus ENT: positive: No signs of dehydration Neck: positive: Trachea midline Respiratory: positive: Chest non-tender, No respiratory distress, Breath sounds nml Cardiovascular: positive: Regular rate & rhythm, No murmur Abdomen: positive: Nml bowel sounds, No distention Skin: positive: Color nml, Warm, Dry Extremities: positive: Non-tender, Nml appearance. negative: David's sign/cords Neurologic/Psychiatric: positive: Oriented x3, Motor nml, Sensation nml, Mood/affect nml - LABS Result Diagrams: 07/06/22 05:20 07/06/22 01:43 - QUALITY (Female Hip Fx Only) Was patient sent home on osteoporosis medication?: No - FOLLOW UP Follow Up: [facility] [address] [place] [id number] - TIME SPENT Time Spent in Discharge (Minutes): 30"
--- NOTE | 2022-07-08 09:01 | Discharge Plan ---
Discharge Plan Problem Reviewed?: Yes Disposition: Home, Self Care Condition: Good Diet: Regular Activity Restrictions: Additional Comments (No lifting >15 pounds for 6 weeks.) Shower Restrictions: No Driving Restrictions: Yes (Not while on pain medications.) Weight Bearing: Full Weight Additional Instructions or Follow Up instructions: Call with questions or concerns. No Smoking: If you smoke, Please STOP! Call for help. Follow-up with: Faby Donovan ARNP [Primary Care Provider] - Johnson Piper MD [Provider Admit Priv/Credential] -
[2022-07-08] MEDS: HYDROmorphone 0.5 MG/0.5 ML SYRINGE IVP PRN (09:04)
[2022-07-08] MEDS: ENOXAPARIN 40 MG/0.4 ML SYRINGE SUBQ SCH (09:53)
[2022-07-08] MEDS: SODIUM CHLORIDE FLUSH 0.9% 10 ML SYRINGE IVP PRN (10:36)
[2022-07-08 11:13] VITALS: BP 125/77
== END 2022-07-08 12:15 | disposition home or self-care (01) | DRG 330 ==
LOC: MS3 07:10
PROVIDERS: ADMIT Surgery; ATTEND Surgery
PROC: 0DNL4ZZ Release Transverse Colon, Percutaneous Endoscopic Approach (ICD-10-PCS; 2022-07-03)
PROC: 0DJD8ZZ Inspection of Lower Intestinal Tract, Via Natural or Artificial Opening Endoscopic (ICD-10-PCS; principal; 2022-07-03 08:30)
PROC: 0DTG4ZZ Resection of Left Large Intestine, Percutaneous Endoscopic Approach (ICD-10-PCS; 2022-07-03 08:30)
DX: K57.30 Diverticulosis of large intestine without perforation or abscess without bleeding (principal); K56.7 Ileus, unspecified; K64.8 Other hemorrhoids; Z87.891 Personal history of nicotine dependence; Z87.19 Personal history of other diseases of the digestive system; Z86.718 Personal history of other venous thrombosis and embolism; Z86.711 Personal history of pulmonary embolism; Z79.01 Long term (current) use of anticoagulants; I10 Essential (primary) hypertension; K21.9 Gastro-esophageal reflux disease without esophagitis; Z86.73 Personal history of transient ischemic attack (TIA), and cerebral infarction without residual deficits
CPT/HCPCS: 36415; 80053; 85025; 86850; 86900; 86901; A9270; J0131; J1170; J1650; J2765; J2795; J7120

== ENCOUNTER 2023-02-06 12:36 | Outpatient (CLI) | payer OTHER | END 2023-02-06 12:37 | disposition critical access hospital (66) | LOC: EMS 12:36 | DX: R11.2 Nausea with vomiting, unspecified (principal); R10.84 Generalized abdominal pain; R00.0 Tachycardia, unspecified | CPT/HCPCS: A0425; A0427 ==

== ENCOUNTER 2023-02-06 13:12 | Observation (INO) | payer OTHER ==
[2023-02-06] MEDS ORDERED: HYDROmorphone 1 MG/ML CARPUJECT IVP STA ×3 (13:43→17:29)
[2023-02-06] MEDS ORDERED: ONDANSETRON 4 MG/2 ML VIAL IVP STA (13:43)
[2023-02-06] MEDS ORDERED: SODIUM CHLORIDE 0.9% 1,000 ML IV STA ×2 (13:43)
[2023-02-06 13:52] LABS: BASOPHILS % (AUTO) 0.2 %; HCT - HEMATOCRIT 43.6 % (37.0-47.0); LYMPHOCYTES # (AUTO) 1.5 10^3/uL (1.5-3.5); LYMPHOCYTES % (AUTO) 8.9 %; MEAN CORPUSCULAR HEMOGLOBIN 29.1 pg (27.0-31.0); MEAN CORPUSCULAR HGB CONC 34.4 g/dL (32.0-36.0); MEAN CORPUSCULAR VOLUME 84.7 fL (81.0-99.0); MONOCYTES # (AUTO) 0.8 10^3/uL (0.0-1.0); MONOCYTES % (AUTO) 5.1 %; NEUTROPHILS # (AUTO) 14.1 10^3/uL (1.5-6.6); NEUTROPHILS % (AUTO) 85.5 %; PLT - PLATELET COUNT 330 10^3/uL (130-450); RED BLOOD COUNT 5.15 10^6/uL (4.20-5.40); RED CELL DISTRIBUTION WIDTH 14.5 % (12.0-15.0); WHITE BLOOD COUNT 16.5 x10^3/uL (4.8-10.8)
--- NOTE | 2023-02-06 14:02 | ED Physician Documentation ---
History of Present Illness - Stated complaint Stated Complaint: N/V - Chief complaint Chief Complaint: Abd Pain - History obtained from History obtained from: Patient - History of Present Illness Timing: How many days ago Pain level max: 8 Pain level now: 8 - Additonal information Additional information: 67-year-old female has a history of colon resection with anastomosis. She has had strictures at the anastomosis site. She had a balloon dilation done at [facility] yesterday. Dr. Miller. Today has had increasing pain and vomiting. Feels like there may have been blood in the vomit. She is currently not on her blood thinner. She spoke with Dr. Miller who recommended she go to the emergency department for evaluation. She called 911 and was brought here. Review of Systems Constitutional: denies: Fever, Chills Throat: denies: Sore throat Cardiac: denies: Chest pain / pressure, Palpitations Respiratory: denies: Cough GI: denies: Vomiting, Diarrhea Skin: denies: Rash Musculoskeletal: denies: Neck pain, Back pain Neurologic: denies: Headache PD PAST MEDICAL HISTORY - Past Medical History Past Medical History: Yes Cardiovascular: Deep vein thrombosis, Pulmonary embolism, Other Respiratory: Other Neuro: Seizure disorder Endocrine/Autoimmune: None GI: Colon polyps, Chronic diarrhea, Diverticulitis [employer] ATTORNEY: None : Chronic bladder infection HEENT: Chronic vision loss, Other Psych: None Musculoskeletal: None Derm: None - Past Surgical History Past Surgical History: Yes General: Cholecystectomy, Appendectomy, Bowel surgery, Colonoscopy, EGD /[employer] ATTORNEY: Hysterectomy, Other Cardiovascular: Cardiac catheterization HEENT: Tonsil/Adenoidectomy - Present Medications Home Medications: Ambulatory Orders Medication Instructions Recorded Confirmed Rivaroxaban [Xarelto] 20 mg PO DAILY 01/15/19 02/06/23 Ezetimibe [Zetia] 10 mg PO DAILY 09/12/21 02/06/23 Lisinopril [Zestril] 2.5 mg PO DAILY 02/06/23 02/06/23 Ondansetron [Zuplenz] 4 mg PO Q8H PRN 02/06/23 02/06/23 - Allergies Allergies/Adverse Reactions: Allergies Allergy/AdvReac Type Severity Reaction Status Date / Time ethinyl estradiol AdvReac Severe DVT Verified 02/06/23 13:28 norethindrone AdvReac Severe DVT Verified 02/06/23 13:28 - Social History Does the pt smoke?: Yes Smoking Status: Current every day smoker Does the pt drink ETOH?: Yes Does the pt have substance abuse?: No - Immunizations Immunizations are current?: Yes - POLST Patient has POLST: No PD ED PE NORMAL - Vitals Vital signs reviewed: Yes - General General: Alert and oriented X 3, No acute distress - HEENT HEENT: PERRL, Moist mucous membranes - Neck Neck: Supple, no meningeal sign - Cardiac Cardiac: RRR, Strong equal pulses - Respiratory Respiratory: No respiratory distress, Clear bilaterally - Abdomen Abdomen: Soft, Non distended, Other (Diffusely tender to palpation. No peritoneal signs.) - Back Back: No CVA TTP, No spinal TTP - Derm Derm: Warm and dry - Neuro Neuro: Alert and oriented X 3 - Psych Psych: Normal mood, Normal affect Results - Vitals Vitals: Vital Signs - 24 hr 02/06/23 02/06/23 02/06/23 13:21 14:34 17:21 Temperature 36.3 C L Heart Rate 104 H 84 74 Respiratory 20 18 18 Rate Blood Pressure 134/90 H 136/84 H 120/78 O2 Saturation 98 95 99 02/06/23 18:21 Temperature 36.4 C L Heart Rate 74 Respiratory 18 Rate Blood Pressure 119/68 O2 Saturation 100 Oxygen O2 Source Room air - Labs Labs: Laboratory Tests 02/06/23 02/06/23 13:45 13:45 WBC 16.5 H RBC 5.15 Hgb 15.0 Hct 43.6 MCV 84.7 MCH 29.1 MCHC 34.4 RDW 14.5 Plt Count 330 MPV 10.0 Neut # (Auto) 14.1 H Lymph # (Auto) 1.5 [place] # (Auto) 0.8 Eos # (Auto) 0.0 Baso # (Auto) 0.0 Absolute Nucleated RBC 0.00 Nucleated RBC % 0.0 Sodium 138 Potassium 3.3 L Chloride 103 Carbon Dioxide 25 Anion Gap 10.0 BUN 14 Creatinine 0.6 Estimated GFR (MDRD) 99 Glucose 126 H Calcium 9.9 Total Bilirubin 0.9 AST 10 ALT 18 Alkaline Phosphatase 67 Total Protein 7.2 Albumin 4.6 Globulin 2.6 Albumin/Globulin Ratio 1.8 Lipase < 10 L - Rads (name of study) CT abdomen pelvis Relevant Findings:: Final report received, See rad report PD Medical Decision Making - ED course Complexity details: reviewed results, re-evaluated patient, considered differential, d/w patient, d/w managing consultant ED course: Ms. Crenshaw is a 67-year-old female who presents with abdominal pain after a dilation of stricture near her anastomosis. Her original surgery was performed here, her stricture dilations were performed at [facility]. I spoke with Dr. Aly, general surgery on-call who recommends contacting Dr. Miller from [facility]. I spoke with Dr. Miller, he states the patient will likely need a repeat colostomy either way, I then spoke again with Dr. Aly and we will admit the patient here for further care. The patient understands that she will likely need another colostomy and she does not want to go to [facility], she would prefer to stay here. Patient is well-appearing, nontoxic. Afebrile. Pain well controlled. Given IV Zosyn and IV Dilaudid. Patient will be admitted for further care. This document was made in part using voice recognition software. While efforts are made to proofread this document, sound alike and grammatical errors may occur. Departure - Departure Disposition: ED Place in Observation Clinical Impression: Perforated abdominal viscus Condition: Stable Discharge Date/Time: 02/06/23 20:30
[2023-02-06 14:06] LABS: ALBUMIN 4.6 g/dL (3.2-5.5); ALBUMIN/GLOBULIN RATIO 1.8 (1.0-2.2); ALKALINE PHOSPHATASE 67 IU/L (42-121); ALT ALANINE AMINOTRANSFERASE 18 IU/L (10-60); AST ASPARTATE AMINOTRANSFERASE 10 IU/L (10-42); BILIRUBIN,TOTAL 0.9 mg/dL (0.2-1.0); BUN - BLOOD UREA NITROGEN 14 mg/dL (6-20); CALCIUM 9.9 mg/dL (8.5-10.3); CARBON DIOXIDE - CO2 25 mmol/L (21-32); CHLORIDE 103 mmol/L (101-111); CREATININE 0.6 mg/dL (0.6-1.3); GFR - MDRD 99 (>89); GLUCOSE 126 mg/dL (74-104); POTASSIUM 3.3 mmol/L (3.5-4.5); SODIUM 138 mmol/L (135-145); TOTAL PROTEIN 7.2 g/dL (6.4-8.9)
[2023-02-06 14:07] LABS: LIPASE < 10 U/L (11-82)
[2023-02-06] MEDS ORDERED: iohexoL-300 100 ML VIAL IVP ONE (15:01)
--- NOTE | 2023-02-06 15:39 | CT Report ---
PROCEDURE: ABDOMEN/PELVIS W INDICATIONS: abd pain 2 days s/p colonic anastamosis dilation CONTRAST: 100ml omni 300 TECHNIQUE: After the administration of contrast, 5 mm thick sections acquired from the diaphragms to the symphys is. 5 mm thick coronal and sagittal reformats were acquired. For radiation dose reduction, the foll owing was used: automated exposure control, adjustment of mA and/or kV according to patient size. COMPARISON: 01/15/2023 FINDINGS: Image quality: Excellent. Lung bases and heart: Unremarkable. Liver: No solid mass. Gallbladder and biliary tree: Status post cholecystectomy. Spleen: No splenomegaly. Pancreas: No pancreatic ductal dilation. Adrenals: The right adrenal gland is normal. The left adrenal gland has a 3.3 x 2.2 cm nodule unchang ed compared to 2015. Kidneys and ureters: No hydronephrosis. No renal cystic lesion which requires follow up. No solid mas s. Multiple simple cysts of both kidneys. Bowel and peritoneum: There are multiple foci of air surrounding the rectum and extending up the righ t retroperitoneum to the level of the right kidney. Lymph nodes: No central or retroperitoneal adenopathy. Vessels: The aorta has normal caliber. There are diffuse atherosclerotic calcifications. PELVIS Reproductive organs: Unremarkable. Bladder: No abnormal wall thickening, accounting for underdistension. Pelvic lymph nodes: No pelvic adenopathy by size criteria. Bones: No aggressive osseous abnormality. Pectus excavatum. Other: No significant ventral or inguinal hernia. IMPRESSION: 1. Free air surrounding the rectum and extending cephalad on the right to the level of the right kidn ey. Likely due to recent colonic anastomosis dilatation. 2. 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 Findings were discussed with the emergency department. Reviewed by: Miguel Alvarado on 02/06/2023 3:38 PM PDT Approved by: Miguel Alvarado on 02/06/2023 3:38 PM PDT Station ID: [id number]
[2023-02-06] MEDS ORDERED: PIPERACILLIN/TAZOBACTAM 3.375 GM in SODIUM CHLORIDE 0.9% MINIBAG 100 ML IV STA (15:50)
[2023-02-06] MEDS ORDERED: SODIUM CHLORIDE FLUSH 0.9% 10 ML SYRINGE IVP PRN (19:23)
[2023-02-06] MEDS ORDERED: ONDANSETRON ODT 4 MG TABLET TL PRN (19:23)
[2023-02-06] MEDS ORDERED: ONDANSETRON 4 MG/2 ML VIAL IVP PRN (19:23)
[2023-02-06] MEDS ORDERED: ACETAMINOPHEN 325 MG TABLET PO PRN (19:23)
--- NOTE | 2023-02-06 19:32 | HISTORY & PHYSICAL EXAMINATION ---
Chief Complaint - Chief Complaint Chief Complaint: abdominal pain History of Present Illness - History Obtained From Records Reviewed: yes History obtained from: pt Exam Limitations: none - History of Present Illness HPI Comment/Other: history sigmoid colectomy 5 months ago and chronic nausea since. anastomosis stricture and dilation at [facility] 2 weeks ago and again yesterday. she had pain immediately following yesterdays procedure and came to the [facility] ED as not improving. pain about the same. ct scan done showing small air in pelvis alone. no free fluid. Dr Pope [facility] observation at [facility] and colectomy/ colostomy as needed History - Past Medical History Cardiovascular: reports: Deep vein thrombosis, Pulmonary embolism, Other Respiratory: reports: Other Neuro: reports: Seizure disorder Endocrine/Autoimmune: reports: None GI: reports: Colon polyps, Chronic diarrhea, Diverticulitis BINDER LOCKSTITCH: reports: None : reports: Chronic bladder infection HEENT: reports: Chronic vision loss, Other Psych: reports: None Musculoskeletal: reports: None Derm: reports: None MRSA Hx?: No - Past Surgical History General: reports: Cholecystectomy, Appendectomy, Bowel surgery, Colonoscopy, EGD /BINDER LOCKSTITCH: reports: Hysterectomy, Other Cardiovascular: reports: Cardiac catheterization HEENT: reports: Tonsil/Adenoidectomy - POLST Patient has POLST: No Meds/Allgy - Home Medications Home Medications: Ambulatory Orders Medication Instructions Recorded Confirmed Rivaroxaban [Xarelto] 20 mg PO DAILY 01/15/19 02/06/23 Ezetimibe [Zetia] 10 mg PO DAILY 09/12/21 02/06/23 Lisinopril [Zestril] 2.5 mg PO DAILY 02/06/23 02/06/23 Ondansetron [Zuplenz] 4 mg PO Q8H PRN 02/06/23 02/06/23 - Allergies Allergies/Adverse Reactions: Allergies Allergy/AdvReac Type Severity Reaction Status Date / Time ethinyl estradiol AdvReac Severe DVT Verified 02/06/23 13:28 norethindrone AdvReac Severe DVT Verified 02/06/23 13:28 Review of Systems - Other Findings Other Findings: 10 pt ros as above otherwise unremarkable Exam - Vital Signs Vital Signs: Vital Signs x48h Temp Pulse Resp BP Pulse Ox 02/06/23 18:21 36.4 C L 74 18 119/68 100 02/06/23 17:21 74 18 120/78 99 02/06/23 14:34 84 18 136/84 H 95 02/06/23 13:21 36.3 C L 104 H 20 134/90 H 98 - Physical Exam General Appearance: positive: No acute distress, Alert Eyes Bilateral: positive: PERRL ENT: positive: No signs of dehydration Neck: positive: No JVD, Trachea midline Respiratory: positive: No respiratory distress Cardiovascular: positive: Regular rate & rhythm Abdomen: positive: No distention, Other (minimal tenderness) Neurologic/Psychiatric: positive: Oriented x3 Conclusion/Plan - Problem List (1) Perforated abdominal viscus Conclusion/Plan: discussed close observation, abxs and bowel rest. if not improving plan colectomy and colostomy. also discussed [facility] is a small hospital without full services. ie no IR drainage capability currently and no colorectal surgeons - Lab Results Fish Bones: 02/06/23 13:45 02/06/23 13:45 - Diagnostic Imaging Results Diagnostic Imaging Results: positive: Read independently (small air deep in pelvis without free fluid. no apparent bowel obstruction)
[2023-02-06] MEDS: HYDROmorphone 0.5 MG/0.5 ML SYRINGE IVP PRN ×2 (20:52→23:07)
[2023-02-06] MEDS: D5.45NS W/20 MEQ KCL 1,000 ML IV SCH (20:58)
[2023-02-06 22:02] LABS: BILIRUBIN,URINE NEGATIVE (NEGATIVE); GLUCOSE, URINE (UA) NEGATIVE (NEGATIVE); KETONES,URINE (UA) TRACE mg/dL (NEGATIVE); LEUKOCYTE ESTERASE, URINE NEGATIVE (NEGATIVE); NITRITE,URINE NEGATIVE (NEGATIVE); OCCULT BLOOD,URINE MODERATE (NEGATIVE); PH,URINE 6.5 PH (5.0-7.5); PROTEIN,URINE TRACE mg/dL (NEGATIVE); UROBILINOGEN,URINE 0.2 (NORMAL) E.U./dL (NORMAL)
[2023-02-06 22:03] LABS: CLARITY,URINE CLEAR (CLEAR)
[2023-02-06 22:10] LABS: BACTERIA,URINE Many /HPF (None Seen); SQUAMOUS EPITHELIAL CELL,UR NONE SEEN (<= Few); WBC,URINE 0-3 /HPF (0-5)
[2023-02-06] MEDS: SODIUM CHLORIDE FLUSH 0.9% 10 ML SYRINGE IVP SCH (23:40)
[2023-02-06] MEDS: ZOLPIDEM 5 MG TABLET PO PRN (23:40)
[2023-02-07] MEDS: PIPERACILLIN/TAZOBACTAM 3.375 GM in SODIUM CHLORIDE 0.9% MINIBAG 100 ML IV SCH ×3 (00:38→16:44)
[2023-02-07] MEDS: HYDROmorphone 0.5 MG/0.5 ML SYRINGE IVP PRN ×8 (03:34→23:56)
[2023-02-07] MEDS: D5.45NS W/20 MEQ KCL 1,000 ML IV SCH ×2 (06:57→16:45)
[2023-02-07] MEDS: SODIUM CHLORIDE FLUSH 0.9% 10 ML SYRINGE IVP SCH ×3 (08:43→23:56)
--- NOTE | 2023-02-07 10:57 | PHARMACY PROGRESS NOTE ---
- Best Possible Medication History Admit Date and Time: 02/06/231922 Processed by: Pharmacy Medication History completed: Yes Patient Interview: Completed Secondary Source(s): Insurance records ([employer], INTERVIEWED PT FOR [employer]. PT HAS NOT BEEN TAKING ANY MEDS SINCE 02/01/23 DUE TO SURGERY.) As the person ultimately responsible for medication therapy, providers are able to order a medication from an existing home medication list in [facility] via the "Reconcile Routine" prior to Confirmation of that medication by operations support manager. Such practice is discouraged except when the physician, in their clinical judgment, deems that a medical need exists for a medication without regard to previous use.
--- NOTE | 2023-02-07 13:36 | PROVIDER PROGRESS NOTE ---
Subjective - Subjective Pt reports feeling: No change (denies significant nausea. pain without change) Objective - Vital Signs/Intake & Output Vital Signs: Vital Signs x48h Temp Pulse Resp BP Pulse Ox 02/07/23 08:00 36.8 C 86 18 113/69 98 Intake & Output: Intake & Output 02/04/23 02/05/23 02/06/23 02/07/23 23:59 23:59 23:59 23:59 Intake Total 1885.0 1098.333 Balance 1885.0 1098.333 - Objective General Appearance: positive: No acute distress, Alert Respiratory: positive: No respiratory distress Abdomen: positive: No distention, Other (benign abdomen) Neurologic/Psychiatric: positive: Oriented x3 - Lab Results Fish Bones: 02/06/23 13:45 02/06/23 13:45 Other Labs: Lab Results x24hrs 02/06/23 02/06/23 02/06/23 Range/Units 21:30 13:45 13:45 WBC 16.5 H (4.8-10.8) x10^3/uL RBC 5.15 (4.20-5.40) 10^6/uL Hgb 15.0 (12.0-16.0) g/dL Hct 43.6 (37.0-47.0) % MCV 84.7 (81.0-99.0) fL MCH 29.1 (27.0-31.0) pg MCHC 34.4 (32.0-36.0) g/dL RDW 14.5 (12.0-15.0) % Plt Count 330 (130-450) 10^3/uL MPV 10.0 (7.9-10.8) fL Neut # (Auto) 14.1 H (1.5-6.6) 10^3/uL Lymph # (Auto) 1.5 (1.5-3.5) 10^3/uL [place] # (Auto) 0.8 (0.0-1.0) 10^3/uL Eos # (Auto) 0.0 (0.0-0.7) 10^3/uL Baso # (Auto) 0.0 (0.0-0.1) 10^3/uL Absolute Nucleated RBC 0.00 x10^3/uL Nucleated RBC % 0.0 /100WBC Sodium 138 (135-145) mmol/L Potassium 3.3 L (3.5-4.5) mmol/L Chloride 103 (101-111) mmol/L Carbon Dioxide 25 (21-32) mmol/L Anion Gap 10.0 (6-13) BUN 14 (6-20) mg/dL Creatinine 0.6 (0.6-1.3) mg/dL Estimated GFR (MDRD) 99 (>89) Glucose 126 H (74-104) mg/dL Calcium 9.9 (8.5-10.3) mg/dL Total Bilirubin 0.9 (0.2-1.0) mg/dL AST 10 (10-42) IU/L ALT 18 (10-60) IU/L Alkaline Phosphatase 67 (42-121) IU/L Total Protein 7.2 (6.4-8.9) g/dL Albumin 4.6 (3.2-5.5) g/dL Globulin 2.6 (2.1-4.2) g/dL Albumin/Globulin Ratio 1.8 (1.0-2.2) Lipase < 10 L (11-82) U/L Urine Color YELLOW Urine Clarity CLEAR (CLEAR) Urine pH 6.5 (5.0-7.5) PH Ur Specific [place] <=1.005 (1.002-1.030) Urine Protein TRACE (NEGATIVE) mg/dL Urine Glucose (UA) NEGATIVE (NEGATIVE) mg/dL Urine Ketones TRACE (NEGATIVE) mg/dL Urine Occult Blood MODERATE H (NEGATIVE) Urine Nitrite NEGATIVE (NEGATIVE) Urine Bilirubin NEGATIVE (NEGATIVE) Urine Urobilinogen 0.2 (NORMAL) (NORMAL) E.U./dL Ur Leukocyte Esterase NEGATIVE (NEGATIVE) Urine RBC 6-10 H (0-5) /HPF Urine WBC 0-3 (0-5) /HPF Ur Squamous Epith Cells NONE SEEN (<= Few) Urine Bacteria Many H (None Seen) /HPF Ur Microscopic Review INDICATED Urine Culture Comments NOT INDICATED - Diagnostic Imaging Diagnostic Imaging Results: positive: Read independently Assessment/Plan - Problem List (1) Perforated abdominal viscus Impression: benign abdomen and normal vital signs. plan continue observation, bowel rest, abx. recheck labs tomorrow. plan clears when pain improves. if she starts to appear ill plan colectomy and colostomy. 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
[2023-02-07] MEDS: ZOLPIDEM 5 MG TABLET PO PRN (23:56)
[2023-02-08] MEDS: PIPERACILLIN/TAZOBACTAM 3.375 GM in SODIUM CHLORIDE 0.9% MINIBAG 100 ML IV SCH ×4 (00:37→23:56)
[2023-02-08] MEDS: D5.45NS W/20 MEQ KCL 1,000 ML IV SCH ×3 (02:54→22:28)
[2023-02-08] MEDS: HYDROmorphone 0.5 MG/0.5 ML SYRINGE IVP PRN ×4 (04:18→20:42)
[2023-02-08 07:43] LABS: CALCIUM 8.5 mg/dL (8.5-10.3); CREATININE 0.6 mg/dL (0.6-1.3); POTASSIUM 3.7 mmol/L (3.5-4.5)
[2023-02-08 07:48] LABS: HCT - HEMATOCRIT 36.5 % (37.0-47.0); HGB - HEMOGLOBIN 12.3 g/dL (12.0-16.0); MEAN CORPUSCULAR HEMOGLOBIN 29.3 pg (27.0-31.0); MEAN CORPUSCULAR HGB CONC 33.7 g/dL (32.0-36.0); MEAN CORPUSCULAR VOLUME 86.9 fL (81.0-99.0); MEAN PLATELET VOLUME 10.4 fL (7.9-10.8); RED BLOOD COUNT 4.2 10^6/uL (4.20-5.40); RED CELL DISTRIBUTION WIDTH 14.4 % (12.0-15.0); WHITE BLOOD COUNT 6.4 x10^3/uL (4.8-10.8)
[2023-02-08] MEDS: SODIUM CHLORIDE FLUSH 0.9% 10 ML SYRINGE IVP SCH ×3 (08:36→23:57)
--- NOTE | 2023-02-08 10:45 | PROVIDER PROGRESS NOTE ---
Subjective - Subjective Pt reports feeling: Improved (still having lower abdominal pain with movement however had bm, passed gas, no nausea or distension) Objective - Vital Signs/Intake & Output Vital Signs: Vital Signs x48h Temp Pulse Resp BP Pulse Ox 02/08/23 08:05 37 C 71 16 136/93 H 98 02/08/23 04:27 37.2 C 80 16 141/86 H 96 Intake & Output: Intake & Output 02/05/23 02/06/23 02/07/23 02/08/23 23:59 23:59 23:59 23:59 Intake Total 1885.0 2878.333 1100 Output Total 350 800 Balance 1885.0 2528.333 300 - Objective General Appearance: positive: No acute distress, Alert ENT: positive: No signs of dehydration Neck: positive: No JVD, Trachea midline Respiratory: positive: No respiratory distress Abdomen: positive: No distention, Other (minimal lower abdominal tenderness) Neurologic/Psychiatric: positive: Oriented x3 - Lab Results Fish Bones: 02/08/23 07:25 02/08/23 07:25 Other Labs: Lab Results x24hrs 02/08/23 02/08/23 Range/Units 07:25 07:25 WBC 6.4 (4.8-10.8) x10^3/uL RBC 4.20 (4.20-5.40) 10^6/uL Hgb 12.3 (12.0-16.0) g/dL Hct 36.5 L (37.0-47.0) % MCV 86.9 (81.0-99.0) fL MCH 29.3 (27.0-31.0) pg MCHC 33.7 (32.0-36.0) g/dL RDW 14.4 (12.0-15.0) % Plt Count 230 (130-450) 10^3/uL MPV 10.4 (7.9-10.8) fL Sodium 137 (135-145) mmol/L Potassium 3.7 (3.5-4.5) mmol/L Chloride 108 (101-111) mmol/L Carbon Dioxide 24 (21-32) mmol/L Anion Gap 5.0 L (6-13) BUN 6 (6-20) mg/dL Creatinine 0.6 (0.6-1.3) mg/dL Estimated GFR (MDRD) 99 (>89) Glucose 108 H (74-104) mg/dL Calcium 8.5 (8.5-10.3) mg/dL Assessment/Plan - Problem List (1) Perforated abdominal viscus Impression: afebrile, normal wbc, bowel function has returned. plan diet clears and if tolerating well home tomorrow on oral antibiotics and [facility]
[2023-02-08] MEDS: ZOLPIDEM 5 MG TABLET PO PRN (22:28)
[2023-02-09 05:53] VITALS: O2SAT 98
[2023-02-09] MEDS: PIPERACILLIN/TAZOBACTAM 3.375 GM in SODIUM CHLORIDE 0.9% MINIBAG 100 ML IV SCH (07:46)
[2023-02-09] MEDS: D5.45NS W/20 MEQ KCL 1,000 ML IV SCH (07:47)
[2023-02-09 09:18] VITALS: BP 181/92
--- NOTE | 2023-02-09 11:40 | Discharge Plan ---
Discharge Plan Problem Reviewed?: Yes Disposition: Home, Self Care Condition: Stable Prescriptions: Amox/Clav 875/125 [Augmentin 875/125 Tab] 1 tablet PO Q8H 5 Days #15 tablet HYDROcod/ACETAM 5/325 [[place] 5/325] 1 each PO Q6H PRN #20 tablet PRN Reason: Pain Ondansetron Odt [Zofran Odt] 4 mg PO Q6H PRN #15 tablet PRN Reason: Nausea / Vomiting Diet: Soft (liquid to soft diet and slowly advance as tolerated over 1 to 2 weeks) Activity Restrictions: No Restrictions Shower Restrictions: No Driving Restrictions: No Plan of Treatment: as above. liquid to soft diet and slowly advance. oral antibiotics. follow up [facility]. recommend see [facility]. Assessment: doing well after bowel rest and iv antibiotics Additional Instructions or Follow Up instructions: call [facility] surgery with any concerns [phone] or your program manager No Smoking: If you smoke, Please STOP! Call for help.
--- NOTE | 2023-02-09 11:44 | DISCHARGE SUMMARY ---
"Discharge Summary Admit Date: 02/06/23 Discharge Date: 02/09/23 Discharging Provider: meena rodriguez Code Status: Attempt Resuscitation Condition at Discharge: Good Discharge Facility Name: [facility] - DIAGNOSES Admission Diagnoses: micorperforated sigmoid anastomosis following dialation at [facility] Discharge Diagnoses with Status of Each Condition: much improved after bowel rest and iv abx. tolerating clears, having bm, afebrile, benign abdominal exam by time of d/c - HPI History of Present Illness: history colectomy 5 months ago for diverticular disease. anastomotic stricture with dilated colon requiring dilation 2 weeks and 1 day prior to admission. admitted with pain and elevated wbc and ct showing perforation with air in pelvis. - CONSULTS | PROCEDURES Procedures: as above. bowel rest and iv abxs - HOSPITAL COURSE Hospital Course: much improved by time of d/c - ALLERGIES Allergies/Adverse Reactions: Allergies Allergy/AdvReac Type Severity Reaction Status Date / Time ethinyl estradiol AdvReac Severe DVT Verified 02/06/23 13:28 norethindrone AdvReac Severe DVT Verified 02/06/23 13:28 - MEDICATIONS Home Medications: Ambulatory Orders Medication Instructions Recorded Confirmed Rivaroxaban [Xarelto] 20 mg PO DAILY 01/15/19 02/06/23 Ezetimibe [Zetia] 10 mg PO DAILY 09/12/21 02/06/23 Lisinopril [Zestril] 2.5 mg PO HS 02/06/23 02/07/23 Ondansetron [Zuplenz] 4 mg PO Q8H PRN 02/06/23 02/06/23 Amox/Clav 875/125 [Augmentin 1 tablet PO Q8H 5 Days #15 tablet 02/09/23 875/125 Tab] HYDROcod/ACETAM 5/325 [[place] 5/325] 1 each PO Q6H PRN #20 tablet 02/09/23 Ondansetron Odt [Zofran Odt] 4 mg PO Q6H PRN #15 tablet 02/09/23 - PHYSICAL EXAM AT DISCHARGE General Appearance: positive: No acute distress, Alert Eyes Bilateral: positive: Normal inspection Respiratory: positive: No respiratory distress Abdomen: positive: No distention, Other (minimal pain and tenderness) Neurologic/Psychiatric: positive: Oriented x3 - LABS Result Diagrams: 02/08/23 07:25 02/08/23 07:25 - DIAGNOSTIC IMAGING Diagnostic Imaging Results: Read independently - FOLLOW UP [facility] with any concerns [phone]"
== END 2023-02-09 12:28 | disposition home or self-care (01) ==
LOC: EDUNIT# → ED 13:12 → MS2 19:23
PROVIDERS: ADMIT Surgery; ATTEND Surgery
DX: K91.71 Accidental puncture and laceration of a digestive system organ or structure during a digestive system procedure (principal); Y83.8 Other surgical procedures as the cause of abnormal reaction of the patient, or of later complication, without mention of misadventure at the time of the procedure; R11.2 Nausea with vomiting, unspecified; G89.18 Other acute postprocedural pain; Z86.718 Personal history of other venous thrombosis and embolism; Z79.01 Long term (current) use of anticoagulants; F17.200 Nicotine dependence, unspecified, uncomplicated; Z86.711 Personal history of pulmonary embolism
CPT/HCPCS: 36415; 74177; 80048; 80053; 81001; 83690; 85025; 85027; 96365; 96366; 96367; 96375; 96376; 99284; 99285; A9270; G0378; J1170; Q0162; Q9967; 81003; 87086

== ENCOUNTER 2023-02-24 22:44 | Outpatient (CLI) | payer OTHER | END 2023-02-24 22:45 | disposition short-term general hospital (02) | LOC: EMS 22:44 | DX: R10.32 Left lower quadrant pain (principal); R10.31 Right lower quadrant pain; R10.819 Abdominal tenderness, unspecified site; R11.0 Nausea | CPT/HCPCS: A0425; A0427 ==

== ENCOUNTER 2023-03-18 13:28 | Outpatient (CLI) | payer OTHER ==
[2023-03-18 13:43] LABS: BASOPHILS # (AUTO) 0.1 10^3/uL (0.0-0.1); BASOPHILS % (AUTO) 0.9 %; EOSINOPHILS # (AUTO) 0.3 10^3/uL (0.0-0.7); EOSINOPHILS % (AUTO) 4.3 %; HCT - HEMATOCRIT 44.2 % (37.0-47.0); HGB - HEMOGLOBIN 13.7 g/dL (12.0-16.0); LYMPHOCYTES # (AUTO) 2.3 10^3/uL (1.5-3.5); LYMPHOCYTES % (AUTO) 28.7 %; MEAN CORPUSCULAR HEMOGLOBIN 28.5 pg (27.0-31.0); MEAN CORPUSCULAR VOLUME 92.1 fL (81.0-99.0); MEAN PLATELET VOLUME 9.9 fL (7.9-10.8); MONOCYTES # (AUTO) 0.4 10^3/uL (0.0-1.0); MONOCYTES % (AUTO) 5.4 %; NEUTROPHILS # (AUTO) 4.8 10^3/uL (1.5-6.6); NEUTROPHILS % (AUTO) 60.2 %; PLT - PLATELET COUNT 437 10^3/uL (130-450); WHITE BLOOD COUNT 7.9 x10^3/uL (4.8-10.8)
[2023-03-18 14:00] LABS: ALBUMIN 4.3 g/dL (3.2-5.5); ALBUMIN/GLOBULIN RATIO 1.8 (1.0-2.2); BILIRUBIN,TOTAL 0.3 mg/dL (0.2-1.0); CALCIUM 10.1 mg/dL (8.5-10.3); CREATININE 0.6 mg/dL (0.6-1.3); TOTAL PROTEIN 6.7 g/dL (6.4-8.9)
[2023-03-18 14:40] LABS: THYROID STIMULATING HORMONE 4.92 uIU/mL (0.34-5.60)
== END 2023-03-18 13:29 | disposition home or self-care (01) ==
LOC: LAB 13:28
PROVIDERS: ATTEND Nurse Practitioner
DX: I10 Essential (primary) hypertension (principal); R74.8 Abnormal levels of other serum enzymes; R53.83 Other fatigue
CPT/HCPCS: 36415; 80053; 84443; 85025

== ENCOUNTER 2023-07-25 10:43 | Outpatient (CLI) | payer OTHER, MEDICARE ==
[2023-07-25 14:49] LABS: CHOL/HDL RATIO 4.4 (<4.4); CHOLESTEROL 224 mg/dL; HDL CHOLESTEROL 51 mg/dL; LDL CHOLESTEROL,CALCULATED 125 mg/dL; LDL/HDL RATIO 2.5 (<4.4); TRIGLYCERIDES 242 mg/dL (48-352); VLDL CHOLESTEROL 48 mg/dL
[2023-07-25 15:29] LABS: THYROID STIMULATING HORMONE 9.96 uIU/mL (0.34-5.60)
== END 2023-07-25 10:44 | disposition home or self-care (01) ==
LOC: LAB.S 10:43
PROVIDERS: ATTEND Internal Medicine Cardiovascular Disease
DX: E78.5 Hyperlipidemia, unspecified (principal); I10 Essential (primary) hypertension; R00.2 Palpitations
CPT/HCPCS: 36415; 80061; 83721; 84443

== ENCOUNTER 2023-09-04 10:00 | Outpatient (CLI) | payer OTHER, MEDICARE ==
[2023-09-04 15:24] LABS: BASOPHILS % (AUTO) 0.4 %; EOSINOPHILS # (AUTO) 0.2 10^3/uL (0.0-0.7); HCT - HEMATOCRIT 44.3 % (37.0-47.0); HGB - HEMOGLOBIN 14.1 g/dL (12.0-16.0); LYMPHOCYTES # (AUTO) 2.5 10^3/uL (1.5-3.5); LYMPHOCYTES % (AUTO) 30.4 %; MEAN CORPUSCULAR HEMOGLOBIN 29.6 pg (27.0-31.0); MEAN CORPUSCULAR HGB CONC 31.8 g/dL (32.0-36.0); MEAN CORPUSCULAR VOLUME 93.1 fL (81.0-99.0); MEAN PLATELET VOLUME 10.7 fL (7.9-10.8); MONOCYTES # (AUTO) 0.6 10^3/uL (0.0-1.0); MONOCYTES % (AUTO) 6.8 %; NEUTROPHILS # (AUTO) 4.9 10^3/uL (1.5-6.6); PLT - PLATELET COUNT 287 10^3/uL (130-450); RED BLOOD COUNT 4.76 10^6/uL (4.20-5.40); RED CELL DISTRIBUTION WIDTH 13.4 % (12.0-15.0); WHITE BLOOD COUNT 8.2 x10^3/uL (4.8-10.8)
[2023-09-04 15:35] LABS: ALBUMIN 4.2 g/dL (3.2-5.5); ALBUMIN/GLOBULIN RATIO 1.6 (1.0-2.2); BILIRUBIN,TOTAL 0.6 mg/dL (0.2-1.0); CALCIUM 9.6 mg/dL (8.5-10.3); CREATININE 0.7 mg/dL (0.6-1.3); POTASSIUM 4.1 mmol/L (3.5-4.5); TOTAL PROTEIN 6.8 g/dL (6.4-8.9)
== END 2023-09-04 10:01 | disposition home or self-care (01) ==
LOC: LAB.S 10:00
PROVIDERS: ATTEND General Practice
DX: K43.5 Parastomal hernia without obstruction or gangrene (principal); Z93.3 Colostomy status
CPT/HCPCS: 36415; 80053; 85025

== ENCOUNTER 2023-09-22 17:24 | Outpatient (CLI) | payer OTHER ==
[2023-09-22 17:35] LABS: BASOPHILS # (AUTO) 0.1 10^3/uL (0.0-0.1); BASOPHILS % (AUTO) 0.7 %; EOSINOPHILS # (AUTO) 0.2 10^3/uL (0.0-0.7); EOSINOPHILS % (AUTO) 1.9 %; HCT - HEMATOCRIT 43.3 % (37.0-47.0); HGB - HEMOGLOBIN 14.5 g/dL (12.0-16.0); LYMPHOCYTES # (AUTO) 2.3 10^3/uL (1.5-3.5); LYMPHOCYTES % (AUTO) 28.1 %; MEAN CORPUSCULAR HEMOGLOBIN 30.1 pg (27.0-31.0); MEAN CORPUSCULAR HGB CONC 33.5 g/dL (32.0-36.0); MEAN CORPUSCULAR VOLUME 89.8 fL (81.0-99.0); MEAN PLATELET VOLUME 9.6 fL (7.9-10.8); MONOCYTES # (AUTO) 0.4 10^3/uL (0.0-1.0); MONOCYTES % (AUTO) 4.8 %; NEUTROPHILS # (AUTO) 5.3 10^3/uL (1.5-6.6); NEUTROPHILS % (AUTO) 64.1 %; PLT - PLATELET COUNT 397 10^3/uL (130-450); RED BLOOD COUNT 4.82 10^6/uL (4.20-5.40); RED CELL DISTRIBUTION WIDTH 12.6 % (12.0-15.0); WHITE BLOOD COUNT 8.3 x10^3/uL (4.8-10.8)
[2023-09-22 17:57] LABS: ALBUMIN 4.5 g/dL (3.2-5.5); BILIRUBIN,TOTAL 0.3 mg/dL (0.2-1.0); CREATININE 0.8 mg/dL (0.6-1.3); POTASSIUM 3.6 mmol/L (3.5-4.5); TOTAL PROTEIN 6.8 g/dL (6.4-8.9)
== END 2023-09-22 17:25 | disposition home or self-care (01) ==
LOC: LAB 17:24
PROVIDERS: ATTEND Nurse Practitioner
DX: R10.12 Left upper quadrant pain (principal)
CPT/HCPCS: 36415; 80053; 85025

== ENCOUNTER 2023-09-29 00:36 | Outpatient (CLI) | payer OTHER | END 2023-09-29 23:59 | disposition critical access hospital (66) | LOC: EMS 00:36 | DX: R10.11 Right upper quadrant pain (principal); R10.12 Left upper quadrant pain; Z98.890 Other specified postprocedural states | CPT/HCPCS: A0425; A0427 ==

== ENCOUNTER 2023-09-29 01:10 | Emergency (ER) | payer OTHER ==
[2023-09-29] MEDS: SODIUM CHLORIDE 0.9% 1,000 ML IV STA (01:56)
[2023-09-29] MEDS: HYDROmorphone 1 MG/ML CARPUJECT IVP STA ×2 (01:56→04:23)
[2023-09-29 01:57] LABS: BASOPHILS % (AUTO) 0.3 %; EOSINOPHILS # (AUTO) 0.1 10^3/uL (0.0-0.7); EOSINOPHILS % (AUTO) 0.5 %; HGB - HEMOGLOBIN 13.9 g/dL (12.0-16.0); LYMPHOCYTES # (AUTO) 1.1 10^3/uL (1.5-3.5); LYMPHOCYTES % (AUTO) 9.3 %; MEAN CORPUSCULAR HEMOGLOBIN 29.9 pg (27.0-31.0); MEAN CORPUSCULAR HGB CONC 33.1 g/dL (32.0-36.0); MEAN CORPUSCULAR VOLUME 90.3 fL (81.0-99.0); MONOCYTES # (AUTO) 0.5 10^3/uL (0.0-1.0); MONOCYTES % (AUTO) 3.8 %; NEUTROPHILS # (AUTO) 10.4 10^3/uL (1.5-6.6); NEUTROPHILS % (AUTO) 85.8 %; PLT - PLATELET COUNT 344 10^3/uL (130-450); RED BLOOD COUNT 4.65 10^6/uL (4.20-5.40); RED CELL DISTRIBUTION WIDTH 12.5 % (12.0-15.0); WHITE BLOOD COUNT 12.1 x10^3/uL (4.8-10.8)
[2023-09-29] MEDS ORDERED: iohexoL-300 100 ML VIAL ONE (02:05)
[2023-09-29 02:19] LABS: ALBUMIN 4.2 g/dL (3.2-5.5); ALBUMIN/GLOBULIN RATIO 2.6 (1.0-2.2); BILIRUBIN,TOTAL 0.4 mg/dL (0.2-1.0); CALCIUM 9.9 mg/dL (8.5-10.3); CREATININE 0.8 mg/dL (0.6-1.3); POTASSIUM 4.1 mmol/L (3.5-4.5); TOTAL PROTEIN 5.8 g/dL (6.4-8.9)
[2023-09-29] MEDS: iohexoL-300 100 ML VIAL IVP ONE (02:51)
[2023-09-29 03:19] VITALS: BP 124/72; O2SAT 93
--- NOTE | 2023-09-29 04:05 | ED Physician Documentation ---
PD HPI ABD PAIN - Stated complaint Stated Complaint: ABD PX - Chief complaint Chief Complaint: Abd Pain - History obtained from History obtained from: Patient - Additional information Additional information: Patient is a 67-year-old female with recent ostomy reversal September 08 at [facility] by Dr. Miller presenting for evaluation of abdominal pain with nausea and vomiting starting around 9 PM. Patient had a prior sigmoid colectomy and had strictures at the anastomosis site. Dilation attempts were complicated with perforations thus resulting in ostomy which was recently reversed. Reports her last bowel movement was yesterday but no longer passing much gas. She is on Xarelto for history of pulmonary embolism.Patient was given Zofran and fentanyl from EMS. Review of Systems Constitutional: denies: Fever Cardiac: denies: Chest pain / pressure Respiratory: denies: Dyspnea GI: reports: Abdominal Pain, Nausea, Vomiting PD PAST MEDICAL HISTORY - Past Medical History Cardiovascular: Deep vein thrombosis, Pulmonary embolism, Other Respiratory: Other Neuro: Seizure disorder Endocrine/Autoimmune: None GI: Colon polyps, Chronic diarrhea, Diverticulitis [employer]: None : Chronic bladder infection HEENT: Chronic vision loss, Other Psych: None Musculoskeletal: None Derm: None - Past Surgical History Past Surgical History: Yes General: Cholecystectomy, Appendectomy, Bowel surgery, Colonoscopy, EGD /[employer]: Hysterectomy, Other Cardiovascular: Cardiac catheterization HEENT: Tonsil/Adenoidectomy - Present Medications Home Medications: Ambulatory Orders Medication Instructions Recorded Confirmed Rivaroxaban [Xarelto] 20 mg PO DAILY 01/15/19 09/29/23 Ezetimibe [Zetia] 10 mg PO DAILY 09/12/21 09/29/23 Lisinopril [Zestril] 2.5 mg PO HS 02/06/23 09/29/23 Ondansetron [Zuplenz] 4 mg PO Q8H PRN 02/06/23 09/29/23 Amox/Clav 875/125 [Augmentin 1 tablet PO Q8H 5 Days #15 tablet 02/09/23 09/29/23 875/125 Tab] HYDROcod/ACETAM 5/325 [[place] 5/325] 1 each PO Q6H PRN #20 tablet 02/09/23 09/29/23 Ondansetron Odt [Zofran Odt] 4 mg PO Q6H PRN #15 tablet 02/09/23 09/29/23 - Allergies Allergies/Adverse Reactions: Allergies Allergy/AdvReac Type Severity Reaction Status Date / Time ethinyl estradiol AdvReac Severe DVT Verified 09/29/23 01:20 norethindrone AdvReac Severe DVT Verified 09/29/23 01:20 - Social History Does the pt smoke?: Yes Smoking Status: Current every day smoker Does the pt drink ETOH?: Yes Does the pt have substance abuse?: No - Immunizations Immunizations are current?: Yes - POLST Patient has POLST: No PD ED PE NORMAL - General General: Alert and oriented X 3, No acute distress, Well developed/nourished - HEENT HEENT: Atraumatic - Neck Neck: Supple, no meningeal sign - Cardiac Cardiac: RRR, Strong equal pulses - Respiratory Respiratory: No respiratory distress, Clear bilaterally - Abdomen Abdomen: Soft, Non distended, Other (Hypoactive bowel sounds, well-healed abdominal incisions and ostomy site, generalized abdominal tenderness) - Derm Derm: Warm and dry - Neuro Neuro: Normal speech Results - Vitals Vitals: Vital Signs - 24 hr 09/29/23 09/29/23 01:21 03:12 Temperature 35.7 C L Heart Rate 75 83 Respiratory 18 16 Rate Blood Pressure 128/78 124/72 O2 Saturation 97 93 Oxygen O2 Source Room air - Labs Labs: Laboratory Tests 09/29/23 09/29/23 01:52 01:52 WBC 12.1 H RBC 4.65 Hgb 13.9 Hct 42.0 MCV 90.3 MCH 29.9 MCHC 33.1 RDW 12.5 Plt Count 344 MPV 10.0 Neut # (Auto) 10.4 H Lymph # (Auto) 1.1 L [place] # (Auto) 0.5 Eos # (Auto) 0.1 Baso # (Auto) 0.0 Absolute Nucleated RBC 0.00 Nucleated RBC % 0.0 Sodium 139 Potassium 4.1 Chloride 104 Carbon Dioxide 25 Anion Gap 10.0 BUN 19 Creatinine 0.8 Estimated GFR (MDRD) 71 L Glucose 139 H Calcium 9.9 Total Bilirubin 0.4 AST 12 ALT 20 Alkaline Phosphatase 58 Total Protein 5.8 L Albumin 4.2 Globulin 1.6 L Albumin/Globulin Ratio 2.6 H Lipase 10 L PD Medical Decision Making - ED course Complexity details: reviewed results, re-evaluated patient, d/w patient ED course: 344 - Discussed with Dr. Man, general surgeon it would be. Recommends reaching out to [facility] surgery first as this is their postop patient but would consult if they do not feel transfer is necessary. Would recommend hospitalist admission. 349 - Discussed with Dr. Santos, general surgeon at [facility]. Request transfer as this is a recent postop patient of theirs. Does not feel she needs an NG tube at this time. Patient is a 67-year-old female with recent ostomy reversal presenting with abdominal pain and nausea and vomiting. Vital signs are stable. She does have abdominal tenderness but not an acute abdomen. No longer vomiting. WBC 12,000. Chemistries reviewed. CT scan was obtained with findings of early small bowel obstruction. Discussed with on-call surgery here as well as at [facility]. Patient has been accepted for transfer at [facility]. She is requiring IV Dilaudid for pain control. Departure - Departure Disposition: 02 Transfer Acute Care Hosp Clinical Impression: Small bowel obstruction Forms: PCP List Discharge Date/Time: 09/29/23 05:12
--- NOTE | 2023-09-29 08:57 | CT Report ---
PROCEDURE: Abdomen/Pelvis W INDICATIONS: abdominal pain/vomiting CONTRAST: 100 ML OMNI 300 TECHNIQUE: After the administration of intravenous contrast, a CT scan of the abdomen and pelvis was performed. Images were recorded and evaluated at appropriate window settings. Reformats: coronal and sagittal. F or radiation dose reduction, the following was used: automated exposure control, adjustment of mA and /or kV according to patient size. COMPARISON: CT abdomen and pelvis 02/06/2023, 01/15/2023. FINDINGS: Image quality: Diagnostic. Lower chest: Mild bibasilar atelectasis. No pleural effusion. Liver: Small hemangioma in the right liver measuring 1.5 cm, (230). Gallbladder: Absent. Biliary tree: No intrahepatic or extrahepatic dilation, accounting for age. Spleen: No splenomegaly. Pancreas: No pancreatic ductal dilation. Multiple small calcifications near the head and neck of the pancreas. 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 No peripancreatic fluid collection. Adrenals: Left adrenal thickening is unchanged. Kidneys and ureters: No hydronephrosis. No renal cystic lesion which requires follow up. No solid mas s. Stomach, bowel and peritoneum: Stomach is within normal limits. Prominent fluid-filled loops of small bowel in the left abdomen. Mesenteric edema adjacent to these loops of small bowel in the left lower quadrant. Possible transition points in the left lower quadrant. Alternatively, this could be due to peristalsis. Partial colectomy. Rectosigmoid anastomosis. Diverticulosis. No ascites. No pneumoperit oneum. Lymph nodes: No central or retroperitoneal adenopathy. Vessels: No infrarenal aortic aneurysm. Atherosclerotic plaque. PELVIS Reproductive organs: Absent uterus. Bladder: No stone. Normal thickness. Pelvic lymph nodes: No pelvic adenopathy by size criteria. Bones: No aggressive osseous abnormality. DDD most pronounced at L5-S1. Other: No significant ventral hernia. Stranding in the left abdominal subcutaneous fat near the level of the stomach, (2), not previously seen in 2022. Small fat-containing right inguinal hernia. IMPRESSION: 1. Prominent loops of small bowel in the left abdomen with associated mesenteric edema. Possible stuart sition points. Early small bowel obstruction is difficult to exclude. 2. Rectosigmoid anastomosis. No mass identified. No adenopathy. 3. Stranding in the left ventral abdominal wall. This could be due to prior surgery but was not seen in 2022. No fluid collection. Findings of a chronic calcific pancreatitis. Small hemangioma in the liver. Post cholecystectomy. Left adrenal hyperplasia. No significant discrepancy with the overnight preliminary interpretation. Reviewed by: Familia Beltrán MD on 09/29/2023 8:56 AM PDT Approved by: Familia Beltrán MD on 09/29/2023 8:56 AM PDT Station ID: [id number]
== END 2023-09-29 05:12 | disposition short-term general hospital (02) ==
LOC: EDUNIT# → ED 01:10
DX: K56.609 Unspecified intestinal obstruction, unspecified as to partial versus complete obstruction (principal); F17.200 Nicotine dependence, unspecified, uncomplicated
CPT/HCPCS: 36415; 74177; 80053; 83690; 85025; 96374; 96376; 99285; J1170; Q9967

== ENCOUNTER 2023-09-29 05:01 | Outpatient (CLI) | payer OTHER | END 2023-09-29 23:59 | disposition short-term general hospital (02) | LOC: EMS 05:01 | PROVIDERS: ATTEND Emergency Medicine | DX: K56.609 Unspecified intestinal obstruction, unspecified as to partial versus complete obstruction (principal) | CPT/HCPCS: A0425; A0426 ==